=== PATIENT | female | born 1980 | race Caucasian/White ===

== ENCOUNTER → 2019-10-10 09:05 | Outpatient (CLI) | payer OTHER, SELFPAY ==
--- NOTE | ~2019-10-10 | CT_ITS ---
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 The dose -length product (DLP) was 185.35 mGy-cm. Automated exposure control and iterative reconstruction tech nique were employed. COMPARISON: None FINDINGS: There is a 1.3 x 1.2 cm left upper lobe nodule on image 50. There is no pleural effusion or pneumothorax. There are no pathologically enlarged thoracic lymph nodes. The heart size is normal. T here are changes of cholecystectomy. There is mild thoracic spondylosis. IMPRESSION: 1. 1.3 cm nodule of the left upper lobe. Comparison with prior imaging is necessary to assess for int erval change. Reviewed, dictated and finalized at location A. IMPRESSION: 1. 1.3 cm nodule of the left upper lobe. Comparison with prior imaging is neces damian to assess for interval change.
== END ==
PROVIDERS: PCP Family Medicine; Visit Provider Internal Medicine
DX: R91.1 Solitary pulmonary nodule (principal)
CPT/HCPCS: 71250

== ENCOUNTER 2019-10-11 14:09 | Outpatient (CLI) | payer OTHER, SELFPAY ==
--- NOTE | 2019-10-11 16:16 | WPDPFTINT ---
PFT Interpretation PFT Interpretation: DOS: [10/11/2019] REQUESTING: Dr. Alves REASON FOR TESTING: lung nodule PULMONARY FUNCTION TESTS Results are reproducible and reliable. Spirometry: FEV1 is 74%, 2.18 L, mildly decreased. FVC 102%, normal. FEV1% decreased. FJQ53-76% is severely decreased at 26%. No bronchodilator was given. Lung volumes: TLC 111%. RV 121% mild air trapping. Normal airway resistance. Diffusion: DLCO 96%, normal. Flow volume loop: Scooping of the expiratory limb. IMPRESSION: Mild obstructive ventilatory impairment which is severe in the small airways, mild air trapping. No bronchodilator was given. Compared to a prior study 08/02/2017, FEV1 is better, 74% now compared to 64%. Air trapping is new. Other values are stable. Loren Alva MD
== END 2019-10-11 14:10 | disposition home or self-care (01) ==
PROVIDERS: PCP Family Medicine; Visit Provider Internal Medicine
DX: R91.1 Solitary pulmonary nodule (principal); R94.2 Abnormal results of pulmonary function studies
CPT/HCPCS: 94375; 94726; 94729

== ENCOUNTER → 2020-07-15 10:20 | Outpatient (CLI) | payer OTHER, SELFPAY ==
--- NOTE | ~2020-07-15 | MM_ITS ---
EXAMINATION: MM screening rafi BI w maggie HISTORY: Screening mammogram; baseline examination TECHNIQUE: Craniocaudal and mediolateral oblique 3-D tomosynthesis images were obtained and synthetic 2-D images were generated. CAD analysis was submitted and interpreted. COMPARISON: No prior mammogram is available for comparison at this institution. BREAST PARENCHYMAL COMPOSITION: There are scattered areas of fibroglandular density. FINDINGS: There is no evidence of suspicious mass, calcification, or architectural distortion to sugg est malignancy in either breast. There has been no suspicious interval change. IMPRESSION: 1. No mammographic evidence of malignancy. 2. Recommend routine screening mammography in one year. BI-RADS Category 1: Negative Reviewed, dictated and finalized at location A.
== END ==
PROVIDERS: PCP Family Medicine; Visit Provider Family Medicine
DX: Z12.31 Encounter for screening mammogram for malignant neoplasm of breast (principal)
CPT/HCPCS: 77063; 77067

== ENCOUNTER → 2021-01-08 11:14 | Outpatient (CLI) | payer OTHER, SELFPAY ==
--- NOTE | ~2021-01-08 | XR_ITS ---
XR hip RT 2V w AP pelvis DATE: 01/08/2021 12:19 INDICATION: Right hip pain TECHNIQUE: AP pelvis. AP and lateral views of right hip COMPARISON: None FINDINGS: The pubic symphysis and sacroiliac joints are intact. No pelvic fracture or bone destructio n. Joint spaces are symmetric and well preserved. No fracture or dislocation, avascular necrosis or bone destruction of the right hip. IMPRESSION: No significant abnormality Reviewed, dictated and finalized at location A. HATCHERY MANAGER IMPRESSION: No significant abnormality
--- NOTE | ~2021-01-08 | XR_ITS ---
XR knee RT 2V DATE: 01/08/2021 12:19 INDICATION: Right knee pain TECHNIQUE: Standing AP and lateral views COMPARISON: None FINDINGS: No fracture or dislocation or joint effusion. No periosteal reaction or bone destruction. N o radiopaque intra-articular loose body or chondrocalcinosis. The joint spaces are well preserved. IMPRESSION: Negative Reviewed, dictated and finalized at location A. S HAND SEWER IMPRESSION: Negative
--- NOTE | ~2021-01-08 | XR_ITS ---
XR knee LT 2V DATE: 01/08/2021 12:19 INDICATION: Left knee pain TECHNIQUE: Standing AP and lateral views COMPARISON: None FINDINGS: No fracture or dislocation or joint effusion. No periosteal reaction or bone destruction, r adiopaque intra-articular loose body or chondral calcinosis. Joint spaces are well preserved. IMPRESSION: Negative left knee Reviewed, dictated and finalized at location A. ATING ROOM RN IMPRESSION: Negative left knee
== END ==
PROVIDERS: PCP Family Medicine; Visit Provider Family Medicine
DX: M25.551 Pain in right hip (principal); M25.552 Pain in left hip; M25.559 Pain in unspecified hip
CPT/HCPCS: 73502; 73560

== ENCOUNTER → 2021-04-01 10:02 | Outpatient (CLI) | payer OTHER, SELFPAY ==
--- NOTE | ~2021-04-01 | XR_ITS ---
EXAMINATION: XR chest 2V DATE: 04/01/2021 10:34 INDICATION: Shortness of breath TECHNIQUE: PA and lateral views of the chest were obtained. COMPARISON: Chest radiograph dated 11/19/[address] dated 10/10/2019 FINDINGS: Impression 1.2 cm nodular opacity in the upper lingula and the left midlung zone which was present wi th similar size on the CT from 18 months prior favoring a benign etiology. No other airspace opacitie s, pulmonary edema, pleural effusion or pneumothorax. The cardiomediastinal silhouette is normal. Vis ualized bones and soft tissues are unremarkable. IMPRESSION: 1. No acute cardiopulmonary disease. 2. No significant private branch exchange service adviser 18 months accounting for differences in technique in a 1.2 cm nodule at the lingula which favors a benign etiology. Consider follow-up low-dose noncontrast chest CT for mor e definitive quantitative comparison to document stability. Reviewed, dictated and finalized at location A. L HOUSEKEEPER Impression 1.2 cm nodular opacity in the upper lingula and the left midlung zon e which was present with similar size on the CT from 18 months prior favoring a benign etiology. No other airspace opacities, pulmonary edema, pleural effusio n or pneumothorax. The cardiomediastinal silhouette is normal. Visualized bones and soft tissues are unremarkable. IMPRESSION: 1. No acute cardiopulmonary disease. 2. No significant private branch exchange service adviser 18 months accounting for differences in technique in a 1.2 cm nodule at the lingula which favors a benign etiology. Consider fol low-up low-dose noncontrast chest CT for more definitive quantitative compariso n to document stability.
== END ==
PROVIDERS: PCP Family Medicine; Visit Provider Family Medicine
DX: R06.02 Shortness of breath (principal); R91.1 Solitary pulmonary nodule
CPT/HCPCS: 71046

== ENCOUNTER 2022-02-10 09:52 | Outpatient (CLI) | payer OTHER, SELFPAY ==
[2022-02-10 10:42] LABS: Influenza A QL RT-PCR Negative (Negative); Influenza B QL RT-PCR Negative (Negative); SARS-CoV-2 RNA PCR Negative
== END 2022-02-10 09:53 | disposition home or self-care (01) ==
LOC: ANHLAB 09:54
PROVIDERS: PCP Family Medicine; Visit Provider Physician Assistant
DX: R05.9 Cough, unspecified (principal); Z20.822 Contact with and (suspected) exposure to COVID-19
CPT/HCPCS: 87636

== ENCOUNTER 2022-07-03 09:52 | Outpatient (CLI) | payer OTHER, SELFPAY ==
--- NOTE | ~2022-07-03 | XR_ITS ---
Supine and upright views of the abdomen Clinical history: Epigastric pain Findings: Bowel gas pattern is nonspecific. No evidence for obstruction or free air. No abnormal mass lesion or calcification is seen. 2 metallic structures, the right mid abdomen and 1 the left lower q uadrant, presumably external to the patient. Osseous structures are intact. Impression: Presumed external metallic structures, as noted above. Correlate clinically. No other significant findings. Reviewed, dictated and finalized at location . Impression: Presumed external metallic structures, as noted above. Correlate clinically. No other significant findings.
== END 2022-07-03 09:53 | disposition home or self-care (01) ==
LOC: ANHIMG 09:55
PROVIDERS: PCP Family Medicine; Visit Provider Physician Assistant
DX: R10.13 Epigastric pain (principal)
CPT/HCPCS: 74018

== ENCOUNTER → 2023-02-11 10:21 | Outpatient (CLI) | payer OTHER, SELFPAY ==
--- NOTE | ~2023-02-11 | MM_ITS ---
EXAMINATION: MM screening rafi BI w maggie HISTORY: Screening mammogram TECHNIQUE: Craniocaudal and mediolateral oblique 3-D tomosynthesis images were obtained and synthetic 2-D images were generated. CAD analysis was submitted and interpreted. COMPARISON: 07/11/2020 bilateral screening mammogram BREAST PARENCHYMAL COMPOSITION: There are scattered areas of fibroglandular density. FINDINGS: There is a new 8 mm low density circumscribed density in the upper mid right breast slightl y lateral to mid sagittal plane, lateral most likely benign; diagnostic right mammogram and right edward ast ultrasound examination are recommended. No suspicious mass, architectural distortion, microcalcifications, skin thickening or retraction of e ither breast is noted otherwise. No other significant new or developing density of either breast is d etected. IMPRESSION: 1. New circumscribed 8 mm mass, anterior upper outer quadrant 2. Diagnostic right mammogram and right breast ultrasound examination are recommended BI-RADS Category 0: Incomplete: Needs additional imaging evaluation. Reviewed, dictated and finalized at location A. AL SHELTER WORKER IMPRESSION: 1. New circumscribed 8 mm mass, anterior upper outer quadrant 2. Diagnostic right mammogram and right breast ultrasound examination are recom mended BI-RADS Category 0: Incomplete: Needs additional imaging evaluation.
== END ==
PROVIDERS: PCP Family Medicine; Visit Provider Family Medicine
DX: Z12.31 Encounter for screening mammogram for malignant neoplasm of breast (principal); N63.11 Unspecified lump in the right breast, upper outer quadrant; R92.8 Other abnormal and inconclusive findings on diagnostic imaging of breast
CPT/HCPCS: 77063; 77067

== ENCOUNTER → 2023-03-17 09:16 | Outpatient (CLI) | payer OTHER, SELFPAY ==
--- NOTE | ~2023-03-17 | MMUS_ITS ---
EXAMINATION: MM diagnostic rafi RT w maggie, US breast RT limited HISTORY: Right breast mass on screening mammogram TECHNIQUE: Additional 3-D tomosynthesis images of the right breast were performed and synthetic 2-D i mages were generated. CAD analysis was submitted and interpreted. High resolution limited right breas t ultrasound was performed. COMPARISON: 02/11/2023, 07/15/2020 BREAST PARENCHYMAL COMPOSITION: There are scattered areas of fibroglandular density. FINDINGS: MAMMOGRAPHIC FINDINGS: There is a 9 mm x 6 mm oval, obscured, low density mass in the anterior/middle third of the breast at the 12:00 location, 4 cm from the nipple. No suspicious calcification or architectural distortion ar e identified. ULTRASOUND: There is a 10 mm x 5 mm cyst at the 12:00 location, 2 cm from the nipple corresponding to the mammogr aphic finding in question. IMPRESSION: 1. No mammographic or sonographic evidence of malignancy. 2. Recommend routine screening mammography in one year. BI-RADS Category 2: Benign finding(s). Reviewed, dictated and finalized at location A. N BLIND LOOM TENDER IMPRESSION: 1. No mammographic or sonographic evidence of malignancy. 2. Recommend routine screening mammography in one year. BI-RADS Category 2: Benign finding(s).
== END ==
PROVIDERS: PCP Physician Assistant Medical; Visit Provider Physician Assistant Medical
DX: R92.8 Other abnormal and inconclusive findings on diagnostic imaging of breast (principal)
CPT/HCPCS: 76642; 77061; 77065; G0279

== ENCOUNTER 2024-04-07 14:50 | Outpatient (CLI) | payer OTHER, SELFPAY ==
--- NOTE | ~2024-04-07 | XR_ITS ---
XR hip RT min 2V 04/07/2024 15:06 Indication: Right hip pain Procedure: 2 views right hip Comparison: 01/08/2021 Findings: No fracture, subluxation or dislocation. There is anatomic alignment. No soft tissue abnorm ality. No foreign bodies. Impression: 1: No significant bone or joint abnormality. Reviewed, dictated and finalized at location B. TURNER MACHINE OPERATOR Impression: 1: No significant bone or joint abnormality.
== END 2024-04-07 14:51 | disposition home or self-care (01) ==
LOC: MICIMG 14:52
PROVIDERS: PCP Family Medicine; Visit Provider Family Medicine
DX: M25.551 Pain in right hip (principal)
CPT/HCPCS: 73502

== ENCOUNTER 2024-04-11 10:54 | Emergency (ER) | payer OTHER, SELFPAY ==
--- NOTE | ~2024-04-11 | CT_ITS ---
EXAMINATION: CT abdomen pelvis w con DATE: 04/11/2024 13:52 INDICATION: Abdominal pain. TECHNIQUE: Computed tomography (CT) of the abdomen and pelvis was performed with 100 mL Omnipaque 350 intravenous contrast. Automated exposure control and iterative reconstruction technique were employe d. The dose-length product was 368.47 mGy-cm. COMPARISON: CT abdomen and pelvis 07/25/2018 FINDINGS: The visualized portions of the lung bases are clear without pneumonia or pleural effusion. The heart size is normal. No pericardial effusion. The liver is normal. There are changes of cholecys tectomy. There is a chronic 19 mm hypodense mass in the spleen, likely benign. The pancreas, adrenal glands, and kidneys are normal. There is a 9.3 cm fibroid in the uterus. There are no dilated loops o f bowel. The appendix is normal. There are no pathologically enlarged lymph nodes. There is no free i ntraperitoneal fluid. There is mild thoracic and lumbar spondylosis. IMPRESSION: 1. Large uterine fibroid with worsening from 07/25/2018. Reviewed, dictated and finalized at location A. COORDINATOR
[2024-04-11 11:00] VITALS: BP 129/80; PULSE 85; RESP 20; TEMP 36.4; O2SAT 100
--- OUTSIDE RECORDS SUMMARY | 2024-04-11 11:05 | XMS_ITS ---
Author Organization [facility] Address [address] [place] [address] Care Team Providers Care Collar Tailor Name Role Phone Maldonado Robles MD Primary Care Provider Princess Beck Unavailable [phone] REASON FOR VISIT [employer] - approved with new insurance Encounters Encounter Location Date Provider Diagnosis [address] [address] 03/16/2024 Princess Crawford Plan Of Treatment Next Appt Details Provider Name:Cruz Abel , 04/13/2024 08:20:00 AM, 2022 [facility], [address], [address], Provider Name:Cruz Abel , 04/20/2024 08:00:00 AM, 2022 [facility], [address], [address], Provider Name:Princess Crawford , 06/01/2024 10:30:00 AM, 2022 [facility], [address], [place], [address], Progress Notes * Jairo EDMONDSOB:[birth year] (44 yo F)Acc No.[id number]:03/16/2024 Patient: Giovani Manuela LAZCANO :1980 A ge:44 Y S ex:Female Address:[address] [place] [address], [address] * true * Date: Generated for Valerio julio/Karel/Samraitting on: 0 04/11/2024 11:04 AM DOCTOR OF NURSING PRACTICE
--- OUTSIDE RECORDS SUMMARY | 2024-04-11 11:05 | XMS_ITS | Referral Summary ---
Author Organization [facility] Address [address] [place] [address] Care Team Providers Care Gis Software Engineer Name Role Phone Maldonado Robles MD Primary Care Provider Allergies Active Allergy Reactions Criticality Noted Date Comments Dexamethasone Edema Medium 09/05/2019 Severe Edema that stretched skin. Medications montelukast (SINGULAIR) 10 mg tablet Take 1 tablet (10 mg total) by mouth daily 07/25/19 20 Active albuterol HFA (PROVENTIL HFA,VENTOLIN HFA,PROAIR HFA) 90 mcg/actuation inhaler Inhale 2 puffs every 4 (four) hours as needed Active theophylline (UNIPHYL) 600 mg 24 hr tablet Take 1 tablet (600 mg total) by mouth daily 08/16/19 20 Active metFORMIN XR (GLUCOPHAGE XR) 500 mg 24 hr tablet TAKE 2 TABLETS BY MOUTH ONCE EVERY EVENING 07/13/19 20 Active busPIRone (BUSPAR) 10 mg tablet Take 1 tablet (10 mg total) by mouth 08/22/19 20 Active levothyroxine (SYNTHROID) 125 mcg tablet Active Xolair 150 mg injection 08/30/19 20 Active azelastine (ASTELIN) 137 mcg (0.1 %) nasal spray 08/29/19 20 Active Fetzima 80 mg capsule,extended release 24 hr Take 1 capsule (80 mg total) by mouth every morning 06/23/19 20 Active ipratropium-albu teroL (DUO-NEB) 0.5-2.5 mg/3 mL nebulizer solution Take 3 mL by nebulization every 6 (six) hours as needed Active famotidine (PEPCID) 40 mg tablet TAKE 1 TABLET BY MOUTH PRIOR TO ALLERGY SHOTS 08/03/19 20 Active calcium carbonate-vitami n D3 600 mg(1,500mg) -400 unit capsule Take 1 tablet by mouth 3 (three) times a day 07/14/19 20 Active cetirizine (ZyrTEC) 10 mg tablet Take 1 tablet (10 mg total) by mouth daily Active EPINEPHrine 0.3 mg/0.3 mL auto-injection syringeIndicatio ns:Anaphylaxis Inject 0.3 mL (0.3 mg total) into the muscle as instructed Active Trulicity 0.75 mg/0.5 mL pen injector 05/17/19 21 Active dextroamphetamin e-amphetamine XR (ADDERALL XR) 5 mg 24 hr capsule 05/14/19 21 Active OneTouch Ultra Test strip TEST FASTING BLOOD SUGAR EVERY MORNING. 10/21/19 21 Active dexmethylphenida te XR (FOCALIN XR) 10 mg 24 hr capsule Take 1 capsule (10 mg total) by mouth every morning 10/31/19 21 Active Trelegy Ellipta 200-62.5-25 mcg inhaler INHALE 1 PUFF ONCE DAILY 11/11/19 21 Active levothyroxine (SYNTHROID) 112 mcg tablet Take 1 tablet (112 mcg total) by mouth daily 04/06/19 22 Active traZODone (DESYREL) 50 mg tablet Take 1 tablet (50 mg total) by mouth nightly 06/03/19 22 Active Januvia 100 mg tablet Take 1 tablet (100 mg total) by mouth daily 06/01/19 22 Active lisinopriL (PRINIVIL,ZESTRI L) 10 mg tablet Take 1 tablet (10 mg total) by mouth daily 04/06/19 22 Active COVID-19 test specimen collect [facility] [place] 03/19/19 22 Active Rybelsus 7 mg tablet Take 1 tablet (7 mg total) by mouth daily 11/27/19 22 Active predniSONE (DELTASONE) 10 mg tabletIndication s:Moderate persistent asthma with acute exacerbation Take 4 tabs (40mg) daily for 4 days, then 3 tabs (30mg) daily for 3 days, 2 tabs (20mg) daily for 2 days, 1 tab (10 mg) daily for 2 days. 31 tablet 10/31/20 22 Active cyanocobalamin (Vitamin B-12) 1,000 mcg tablet daily Act sugar mometasone (Asmanex Twisthaler) 220 mcg/ actuation (120) aerosol powdr breath activated 1 puff(s) 05/02/19 22 Active Paxlovid, EUA, tablets,dose pack tablets in a dose pack (EUA) TAKE 2 TABLETS (NIRMATRELVIR) AND TAKE 1 TABLET (RITONAVIR) BY MOUTH TWICE A DAY FOR 5 DAYS 05/15/19 23 Active lisinopriL (PRINIVIL,ZESTRI L) 30 mg tablet Take 1 tablet (30 mg total) by mouth daily 06/04/19 23 Active Xolair 150 mg/mL syringe 06/12/19 23 Active Xolair 75 mg/0.5 mL syringe 06/12/19 23 Active Rybelsus 14 mg tablet 06/24/19 23 Active buPROPion SR (WELLBUTRIN SR) 200 mg 12 hr tablet every 12 hours Activ e immune globulin,gamma,I gG,klhw (Xembify) 1 gram/5 mL (20 %) solution 12 g subcutaneously weekly Active Farxiga 10 mg tablet daily Active triamcinolone (KENALOG) 0.1 % cream 1 herbert applied topically 3 times a day as needed for 14 days Active Active Problems No known active problems Immunizations Immunization Administration Dates Next Due Influenza, Quadrivalent, Spl it, Preservative Free, Intramuscular 12/28/2022 Social History Tobacco Use Types Packs/Day Years Used Date Smoking Tobacco: Former Cigarettes 1 19 0 11/06/1991 - 11/05/2010 Smokeless Tobacco: Never Tobacco Cessation:Counseling Given: Not Answered Alcohol Use Standard Drinks/Week Comments Not Currently 0 (1 standard drink = 0.6 oz pur e alcohol) Personal Safety Answer Date Recorded Getting School Help Needed Not on file 04/20 Comments Unknown Sex and Gender Information Value Date Recorded Sex Assigned at Not on file Legal Sex Female 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 Gender Identity Not on file Sexual Orientation Not on file Last Filed Vital Signs Vital Sign Reading Time Taken Comments Blood Pressure 97/70 09/27/2023 10:58 AM CDT Pulse 87 09/27/2023 10:58 AM CDT Temperature 36.2 C (97.2 F) 09/27/2023 10:58 AM CDT Respiratory Rate 18 09/27/2023 10:58 AM CDT Oxygen Saturation 100% 09/27/2023 10:58 AM CDT Inhaled Oxygen Concentration - - Weight 73.6 kg (162 lb 3.2 oz) 09/27/2023 10:58 AM CDT Height 167.6 cm (5' 6 ) 09/27/2023 10:58 AM CDT Body Mass Index 26.18 09/27/2023 10:58 AM CDT Plan of Treatment Not on file Insurance CIGNA CIGNA Care Teams Gis Software Engineer Relationship Specialty Start Date End Date Maldonado Robles MD [address] [facility] [address] [place] [address] PCP - General Family Medicine 08/16/19
--- OUTSIDE RECORDS SUMMARY | 2024-04-11 11:05 | XMS_ITS | Referral Summary ---
Author Organization [facility] Address [address] [place] [address] Care Team Providers Care Facilities Operations Technician Name Role Phone Maldonado Robles MD Primary Care Provider [phone] [facility],non-owned Affiliates and Associated Physician Practices is amultiple site organization consisting of ambulatory clinics and hospital sitesin [place], [place] and [place]. This disclosure is being madepursuant to the Care Everywhere program and may not contain all information available regarding this patient. Last updated 17.[facility] [employer] Active Problems Problem Noted Date Diagnosed Date Obesity complicating 12/06/2014 Diabetes mellitus in 12/06/2014 Uncomplicated asthma 12/06/2014 Tobacco smoking complicating 5 Hypothyroidism 12/06/2014 Social History Tobacco Use Types Packs/Day Years Used Date Smoking Tobacco: Never Assessed Cigarettes Alcohol Use Standard Drinks/Week Comments No 0 (1 standard drink = 0.6 oz pur e alcohol) Sex and Gender Information Value Date Recorded Sex Assigned at Not on file Gender Identity Not on file Sexual Orientation Not on file Plan of Treatment Not on file Care Teams Facilities Operations Technician Relationship Specialty Start Date End Date Maldonado Robles MD [address] [place] [address] PCP - General 11/24/11
--- OUTSIDE RECORDS SUMMARY | 2024-04-11 11:05 | XMS_ITS | Clinical Summary ---
Author Organization [facility] Address [address] [place] [address] Care Team Providers Care Classifications Officer Cc/Cm Name Role Phone Maldonado Robles MD Primary Care Provider [phone] Source Comments [facility],non-owned Affiliates and Associated Physician Practices is amultiple site organization consisting of ambulatory clinics and hospital sitesin [place], [place], [place] and [place]. This disclosure is being madepursuant to the Care Everywhere program and may not contain all information available regarding this patient. Last updated 17.[facility] Active Problems Problem Noted Date Diagnosed Date Obesity complicating 12/06/2014 Diabetes mellitus in 12/06/2014 Uncomplicated asthma 12/06/2014 Tobacco smoking complicating 5 Hypothyroidism 12/06/2014 Family History Medical History Relation Name Comments CAD (Coronary Artery Disease) Father Diabetes Father Emphysema Father Emphysema Maternal Grandfather d Cancer Maternal Grandmother d Thyroid Disease Mother Relation Name Status Comments Father Maternal Grandfather Maternal Grandmother Mother Social History Tobacco Use Types Packs/Day Years Used Date Smoking Tobacco: Never Assessed Cigarettes Alcohol Use Standard Drinks/Week Comments No 0 (1 standard drink = 0.6 oz pur e alcohol) Sex and Gender Information Value Date Recorded Sex Assigned at Not on file Gender Identity Not on file Sexual Orientation Not on file Plan of Treatment Health Maintenance Due Date Last Done Comments COLOGUARD (AGES 45-75) - COL ON CA SCREENING 1979 COLON MONITORING 1979 COLONOSCOPY - COLON CA SCREENING 1979 CT COLONOGRAPHY - COLON CA SCREENING 1979 Colorectal Cancer Screening 1979 FIT - COLON CA SCREENING 1979 FLEX SIG - COLON CA SCREENING 1979 LIPID TESTING 1979 MAMMOGRAM 1979 PAP SMEAR 1979 HIV SCREENING 1994 HEPATITIS C SCREENING 02/28/1997 DTAP/TDAP/TD VACCINES (1 - Tdap) 1998 HEPATITIS B VACCINE (1 of 3 - 19+ 3-dose series) 1998 PNEUMOCOCCAL VACCINE (1 of 2 - PCV) 1998 COVID-19 VACCINE (1 - 2023-2 5 season) 2023 INFLUENZA VACCINE (#1) 2023 DEPRESSION SCREENING 02/23/2024 ZOSTER VACCINE (1 of 2) 2029 HIB VACCINE Aged Out No longer eligi ble based on patient's age to complete this topic HPV VACCINE Aged Out No longer eligi ble based on patient's age to complete this topic MENINGOCOCCAL (Group B) VACCINE Aged Out No longer eligible based on patient's age to complete this topic MENINGOCOCCAL VACCINE Aged Out No kira jenise eligible based on patient's age to complete this topic Care Teams Classifications Officer Cc/Cm Relationship Specialty Start Date End Date Maldonado Robles MD [address] [place] [address] PCP - General 11/24/11
--- OUTSIDE RECORDS SUMMARY | 2024-04-11 11:05 | XMS_ITS | Clinical Summary ---
Author Organization [facility] Address [address] [place] [address] Care Team Providers Care International Marketing Manager Name Role Phone Maldonado Robles MD Primary [...] 04/06/19 22 Active COVID-19 test specimen [facility] [place] 03/19/19 22 Active Rybelsus 7 mg tablet [...] Quadrivalent, Spl it, Preservative Free, Intramuscular 12/28/2022 Surgical History Surgery Date Site/Laterality Comments CHOLECYSTECTOMY TUBAL LIGATION LUNG BIOPSY Medical History Medical History Date Comments Asthma Diabetes mellitus (HCC) Family History Medical History Relation Name Comments Diabetes Father Stroke Father Cancer Mother Relation Name Status Comments Father Mother Alive Social History Tobacco Use Types Packs/Day Years [...] on file Legal Sex Female 8:59 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 Gender Identity Not on file Sexual Orientation Not on file Obstetrics History Last Filed Vital Signs Vital Sign Reading [...] 09/27/2023 10:58 AM CDT Plan of Treatment Health Maintenance Due Date Last Done Comments Breast Cancer Screening-Mammogram 1979 Cervical Cancer Screening 1979 Colon Cancer Screening-Colonoscopy 1979 Depression Screening 1979 Hepatitis C Screening 1979 DTaP/Tdap/Td Vaccine (1 - Tdap) 1990 Varicella Vaccines (1 of 2 - 13+ 2-dose series) 1992 Hepatitis B Screening 1997 Regular Well Visit/Exam 18-64 1997 Zoster Vaccine (1 of 2) 1998 Pneumococcal vaccine <65 (2 of 2 - PCV) 02/10/2020 02/09/2019 Influenza Vaccine (#1) 2023 3, 01/13/2019, 03/06/2018, Additional history exists HPV Vaccines Aged Out No longer eligi ble based on patient's age to complete this topic Insurance CIGNA CIG Care Teams International Marketing Manager Relationship Specialty Start Date End Date Maldonado Robles MD [address] [facility] [address] [place] [address] PCP - General Family Medicine 08/16/19
--- OUTSIDE RECORDS SUMMARY | 2024-04-11 11:05 | XMS_ITS ---
Author Organization [facility] Address [address] [place] [address] Care Team Providers Care Manager Ccu Name Role Phone Maldonado Robles MD Primary Care Provider UnavailPrincess Tee Unavailable [phone] REASON FOR VISIT Anesthesiology Technologist not in network Encounters Encounter Location Date Provider Diagnosis [facility] [address] [place] [address] 03/27/2024 Princess Crawford Plan Of Treatment Next Appt Details Provider Name:Cruz Abel , 04/13/2024 08:20:00 AM, [address] [facility], [address], [address], Provider Name:Cruz Abel , 04/20/2024 08:00:00 AM, [address] [facility], [address], [address], Provider Name:Princess Crawford , 06/01/2024 10:30:00 AM, [address] [facility], [address] [place] [address], [address], Progress Notes * Jiaro EDMONDSOB:[birth year] (44 yo F)Acc No.[id number]:03/27/2024 Patient: Giovani Manuela LAZCANO :1980 A ge:44 Y S ex:Female Address:[address], [place], [address] * true * Date: Generated for Valerio julio/Karel/Samraitting on: 0 04/11/2024 11:05 AM APARTMENT LEASING 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
--- OUTSIDE RECORDS SUMMARY | 2024-04-11 11:05 | XMS_ITS ---
Author Organization [facility] [place] Address [address] [place] [address] Care Team Providers Care Aligner Typewriter Name Role Phone Maldonado Robles MD Primary Care Provider Daina Michaud Unavailable [phone] Martha Garcia Unavailable [phone] REASON FOR VISIT Fatigue, Difficulties with executive function Medications Medication SIG (Take, Route, Frequency, Duration) Notes Start Date End Date Status Benzonatate 100 MG Oral 07/07/2023 Not-Taking Nitrofurantoin Monohyd Macro 100 MG Oral 07/07/2023 Not-Blake ing Januvia 100 MG Oral 07/07/2023 Not- Taking Symbicort 160-4.5 MCG/ACT Inhalation 07/07/2023 Not-Taking busPIRone HCl 15 MG TAKE 1 TABLET BY MOUTH THREE TIMES A DAY WITH MEALS FOR ANXIETY for 90 Active Azelastine HCl 137 MCG/SPRAY Nasal 07/07/2023 Active OneTouch Ultra In Vitro 07/07/2023 Acti ve Xolair 150 MG Subcutaneous 07/07/2023 Ac tive OneTouch Ultra Blue In Vitro 07/07/2023 Active Farxiga 10 MG Oral 07/07/2023 Activ e Montelukast Sodium 10 MG Oral 07/07/2023 Active Lisinopril 30 MG Oral 07/07/2023 Ac tive Trelegy Ellipta 200-62.5-25 MCG/ACT Inhalation *Pick strength-form from [facility] for eRX* 07/07/2023 Active ProAir HFA 108 (90 Base) MCG/ACT Inhalation 07/07/2023 Active metFORMIN HCl ER 500 MG Oral 07/07/2023 Active Ipratropium-Albutero l 0.5-2.5 (3) MG/3ML Inhalation 07/07/2023 Active Famotidine 40 MG Oral 07/07/2023 Ac tive Theophylline 600 mg Oral *Pick strength[facility]form from [facility] for eRX* 07/07/2023 Active CALCIUM CARBONATE 600 MG-VITAMIN D3 12.5 MCG (500 UNIT) CAPSULE *Reorder from [facility] for eRx and Interaction Alerts* 07/07/2023 Active Auvi-Q 0.3 MG/0.3ML Injection 07/07/2023 Active buPROPion HCl ER (XL) 150 MG 1 tablet in the morning Oral Once a day for 90 days Active traZODone HCl 50 MG 1 tablet at bedtime Oral at bedtime for 90 days Active ONE TOUCH LANCETS MISCELLANEOUS *[facility] for eRx and Interaction Alerts* 07/07/2023 Active Sertraline HCl 50 MG 1 tablet Oral Once a day for 90 days Active Levothyroxine Sodium 112 MCG Oral 07/07/2023 Active Fetzima 40 MG 1 capsule Oral Once a day for 90 days Active Social History Tobacco Use: Social History Observation Description Date Details (start date - stop date) Former Smoker 01/22/1993 - 10/23/2010 Sex Assigned At : Social History Observation Description Sex Assigned At Female Tobacco Control (Standard) Question Answer Notes When did you start smoking? 01/22/1993 When did you stop smoking? 10/23/2010 How long has it been since you last smoked? Mahin ter than 10 years Tobacco use: Former smoker Encounters Encounter Location Date Provider Diagnosis [facility] [place] [address] [address] 02/14/2024 Martha Garcia Attention-deficit hyperactivity disorder, predominantly inattentive type F90.0 ; Generalized anxiety disorder F41.1 and Major depressive disorder, recurrent, mild F33.0 Assessments Encounter Date Diagnosis (ICD Code) Assessment Notes Treatment Notes Treatment Clinical Notes Section Notes 02/14/2024 Attention-deficit hyperactivity disorder, predominantly inattentive type (ICD-10 - F90.0) 02/14/2024 Generalized anxiety disorder (ICD-10 - F41.1) 02/14/2024 Major depressive disorder, recurrent, mild (ICD-10 - F33.0) Plan Of Treatment Next Appt Details Provider Name:Martha Garcia, 04/18/2024 08:00:00 AM, [address], [place] [address], [place], [address], Provider Name:Daina Ward , 05/02/2024 08:15:00 AM, [address], [facility] [address], [place], [address], Progress Notes * BEN EDMONDSOB:[birth year] (43 yo F)Acc No.[id number]:02/14/2024 Patient: Giovani LEEANN LAZCAON Provider: Lacey GARCIA LCSW :1980 A ge:43 Y S ex:Female Date:02/14/2024 Address:[address] [place], [place] [id number] Pcp:Maldonado Robles MD Data: * Time Tracker: * Date Start Time End Time Duration User Type Captured By Mode Notes 02/14/2024 10:10 AM 11:06 AM 00:56:24 Therapist Martha Garcia * Chief Complaints: * 1 . Fatigue. 2. Difficulties with executive function. * HPI: D epression Screening: MARCOS-7 (2018 Edition) F eeling nervous, anxious, or on edge?More than half the days, N ot being able to stop or control worrying S everal days,?Worrying too much about different things S everal days, T rouble relaxing M ore than half the days, B eing so restless that it is hard to sit still M ore than half the days, B ecoming easily annoyed or irritable M ore than half the days, F eeling afraid as if something awful might happen N ot at all. [place]-Suicide Severity Rating Scale: Suicide Risk (CSRS-screener) i n the past one month Have you wished you were or wished you could go to sleep and not wake up? N o, i n the past one month Have you actually had any thoughts of killing yourself? N o, H ave you ever done anything, started to do anything, or prepared to do anything to end your life? N o. D epression screening: PHQ-9 L ittle interest or pleasure in doing things S everal days, F eeling down, depressed, or hopeless N ot at all, T rouble falling or staying asleep, or sleeping too much S everal days, F eeling tired or having little energy S everal , P oor appetite or overeating N early every day, F eeling bad about yourself or that you are a failure, or have let yourself or your family down N ot at all, T rouble concentrating on things, such as reading the newspaper or watching television S ever, M oving or speaking so slowly that other people could have noticed; or the opposite, being so fidgety or restless that you have been moving around a lot more than usual S ever, T houghts that you would be better off or of hurting yourself in some way N ot at all. P sychotherapy Information: Date: 02/14/2024 Current symptoms: Severe fatigue Severity: Severe Context: Cl. had labwork- identified thyroid issue- wrong medication called in by the doctor's office- called in [facility] instead of synthroid. Cl. has lost a lot of weight. H oping to be able to have the medication issue fixed before the holiday. Intervention: During this session, clinician prompted Cl. to process thoughts and feelings associated with medical stressors f or the purpose of gaining insight. Clinician provided support and validation where appropriate. Response: Cl. participated actively in discussion and displayed good insight. Cl. appears to be making good progress. Plan:. * Family History: M aternal Aunt: Depressive disorder , Family history of cancer . F ather: Diabetes mellitus , Substance abuse . M aternal Uncle: Family history of cancer . U nspecified Relation: Substance abuse, Notes: cousin . M other: Depressive disorder , Substance abuse , Anxiety disorder , Family history of cancer , Hypothyroidism . M aternal Grandmother: Family history of cancer .? * Social History: T obacco Use: T obacco Control (Standard) W hen did you start smoking? 1 03/25/1992, W hen did you stop smoking? 0 10/23/2010, H ow long has it been since you last smoked? G reater than 10 years, T obacco use: F ormer smoker. M igrated Social History: M igrated Social History: Alcohol Intake: None 06/23/2022,Tobacco Years: Former smoker 12/26/2019,Smoking Status: 10 04/05/2023. D rug/Alcohol: D o you smoke marijuana?: Denies. Do you drink alcohol?: No. * Medications: T aking Fetzima 40 MG Capsule Extended Release 24 Hour 1 capsule Oral Once a day , Taking buPROPion HCl ER (XL) 150 MG Tablet Extended Release 24 Hour 1 tablet in the morning Oral Once a day , Taking traZODone HCl 50 MG Tablet 1 tablet at bedtime Oral at bedtime , Taking Sertraline HCl 50 MG Tablet 1 tablet Oral Once a day , Taking Levothyroxine Sodium 112 MCG Tablet Oral , Taking ONE TOUCH LANCETS EACH MISCELLANEOUS , Notes to Pharmacist: *Reorder from [facility] for eRx and Interaction Alerts*, Taking Auvi-Q 0.3 MG/0.3ML Solution Auto-injector Injection , Taking Theophylline 600 mg Tablet Extended Release 24 Hour Oral , Notes to Pharmacist: *Pick strength-form from [facility] for eRX*, Taking CALCIUM CARBONATE 600 MG-VITAMIN D3 12.5 MCG (500 UNIT) CAPSULE , Notes to Pharmacist: *Reorder from [facility] for eRx and Interaction Alerts*, Taking Famotidine 40 MG Tablet Oral , Taking Ipratropium-Albuterol 0.5-2.5 (3) MG/3ML Solution Inhalation , Taking Trelegy Ellipta 200-62.5-25 MCG/ACT Aerosol Powder Breath Activated Inhalation , Notes to Pharmacist: *Pick strength-form from [facility] for eRX*, Taking Montelukast Sodium 10 MG Tablet Oral , Taking Lisinopril 30 MG Tablet Oral , Taking ProAir HFA 108 (90 Base) MCG/ACT Aerosol Solution Inhalation , Taking metFORMIN HCl ER 500 MG Tablet Extended Release 24 Hour Oral , Taking OneTouch Ultra Blue Strip In Vitro , Taking Farxiga 10 MG Tablet Oral , Taking OneTouch Ultra Strip In Vitro , Taking Xolair 150 MG Solution Reconstituted Subcutaneous , Taking Azelastine HCl 137 MCG/SPRAY Solution Nasal , Taking busPIRone HCl 15 MG Tablet TAKE 1 TABLET BY MOUTH THREE TIMES A DAY WITH MEALS FOR ANXIETY , Not-Taking Januvia 100 MG Tablet Oral , Not-Taking Symbicort 160- 4.5 MCG/ACT Aerosol Inhalation , Not-Taking Benzonatate 100 MG Capsule Oral , Not- Taking Nitrofurantoin Monohyd Macro 100 MG Capsule Oral , Medication List reviewed and reconciled with the patient * Examination: P sychiatry: Appearance: w ell-groomed. Affect / mood: a ppropriate. Attention: n ormal in conversation. Attitude: c ooperative. Homicidal ideation: n one. Suicidal ideation: n one. Insight: g ood. Intellectual functioning: a carlee average. Judgement: g ood. Orientation: a wake, alert and oriented x 3. Speech / language: a ppropriate pitch/modulation, clear and coherent, normal rate, volume, and articulation (RVR), proper grammar used. Thought content: a ppropriate. Thought process: i ntact. Assessment: * Assessment: 1. A ttention-deficit hyperactivity disorder, predominantly inattentive type - F90.0 (Primary)? 2. G eneralized anxiety disorder - F41.1 3 . M ajor depressive disorder, recurrent, mild - F33.0 Plan: * Treatment: * Procedure Codes: 9 0837 PSYCHOTHERAPY W/PATIENT 60 MINUTES * Billing Information: * Visit Code: * Procedure Codes: 28616 PSYCHOTHERAPY W/PATIENT 60 MINUTES. * NDER JOB RETENTION SPECIALIST Sign off status: Completed Signatures: No Ad Hoc Signature Added true * Provider: Lacey GARCIA LCSW Date: 04/16/2023 Generated for Valerio julio/Karel/Beatrice on: 0 04/11/2024 11:05 AM OFFENDER JOB RETENTION SPECIALIST History and Physical Notes * HPI (History of Present Illness) Category Sub-Category Detail Notes Category Not es Depression screening PHQ-9 Little inte rest or pleasure in doing things: Several days Feeling down, depressed, or hopeless: No t at all Trouble falling or staying asleep, or sl eeping too much: Several days Feeling tired or having little energy: S everal days Poor appetite or overeating: Nearly ever y day Feeling bad about yourself o r that you are a failure, or have let yourself or your family down: Not at all Trouble concentrating on thi ngs, such as reading the newspaper or watching television: Several days Moving or speaking so slowly that other people could have noticed; or the opposite, being so fidgety or restless that you have been moving around a lot more than usual: Several days Thoughts that you would be b katelyn off or of hurting yourself in some way: Not at all Depression Screening MARCOS-7 (2018 Edition) Feelin g nervous, anxious, or on edge: More than half the days Not being able to stop or control worryi ng: Several days Worrying too much about different things : Several days Trouble relaxing: More than half the day s Being so restless that it is hard to sit still: More than half the days Becoming easily annoyed or irritable: Mo re than half the days Feeling afraid as if something awful harry ht happen: Not at all Psychotherapy Information Date: 02/14/2024 Current symptoms: Severe fatigue Severity: Severe Context: Cl. had labwork- identified thyroid issue- wrong medication called in by the doctor's office- called in Farxiga instead of synthroid. Cl. has lost a lot of weight. Hoping to be able to have the medication issue fixed before the holiday. Intervention: During this session, clinician prompted Cl. to process thoughts and feelings associated with medical stressors for the purpose of gaining insight. Clinician provided support and validation where appropriate. Response: Cl. participated actively in discussion and displayed good insight. Cl. appears to be making good progress. Plan: [place]-Suicide Severity Rating Scale Suicide Risk (CSRS-screener) in the past one month Have you wished you were or wished you could go to sleep and not wake up?: No in the past one month Have y ou actually had any thoughts of killing yourself?: No Have you ever done anything, started to do anything, or prepared to do anything to end your life?: No Examination Category Sub-Category Detail Notes Category Not es Psychiatry Appearance: well-groomed Attitude: cooperative Attention: normal in conversati on Orientation: awake, alert and doug ented x 3 Affect / mood: appropriate Speech / language: appropriate pitch/mo dulation, clear and coherent, normal rate, volume, and articulation (RVR), proper grammar used Insight: good Judgement: good Thought process: intact Thought content: appropriate Suicidal ideation: none Homicidal ideation: none Intellectual functioning: above average
--- OUTSIDE RECORDS SUMMARY | 2024-04-11 11:05 | XMS_ITS | Patient Health Summary ---
Author Organization [facility] Address [address] [place] [address] Care Team Providers Care Salvage Repairer Name Role Phone Maldonado Robles MD Primary Care Provider [phone] Note from [facility],non-owned Affiliates and Associated Physician Practices is amultiple site organization consisting of ambulatory clinics and hospital sitesin [place], [place], [place] and [place]. This disclosure is being madepursuant to the Care Everywhere program and may not contain all information available regarding this patient. Last updated 17.[facility] Morning Tec Active Problems Problem Noted Date Diagnosed Date [...] on file Sexual Orientation Not on file Procedures * EKG 12-LEAD(Performed 01/13/2010) * HEMOGLOBIN A1C - POINT OF CARE (AMB) [facility](Performed 01/07/2010) Results * EKG 12-LEAD (01/13/2010) Kwaku Echavarria MD ECG ORDERABLES [facility] * HEMOGLOBIN A1C - POINT OF CARE (AMB) [facility] (01/07/2010 4:00 PM PBX OPERATOR) Hemoglobin A1c POCT 5.8 [facility] Capillary blood specimen (specimen) 01/07/2010 4:00 PM PBX OPERATOR Kwaku Echavarria MD LAB - POINT OF CARE ORDERABLES Performing Organization Address City/State/[facility] Co de Phone Number [facility] Care Teams Salvage Repairer Relationship Specialty Start Date End Date Maldonado Robles MD [address] [place] [address] PCP - General 11/24/11
--- OUTSIDE RECORDS SUMMARY | 2024-04-11 11:06 | XMS_ITS ---
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 Name Role Phone Mladonado Robles MD Primary Care Provider Daina Michaud Unavailable [phone] Allergies Allergen (clinical drug ingredient) Drug/Non Drug Allergy documented on EMR Reaction Allergy Type Onset Date Status dexamethasone dexAMETHasone Unknown Drug Allergy Active citalopram Citalopram Unknown Drug Allergy 06/17/2023 Acti ve REASON FOR VISIT f/u rx Medications Medication SIG (Take, Route, Frequency, Duration) Notes Start Date End Date Status Ipratropium-Albutero l 0.5-2.5 (3) MG/3ML Inhalation 07/07/2023 Active CALCIUM CARBONATE 600 MG-VITAMIN D3 12.5 MCG (500 UNIT) CAPSULE *Reorder from [facility] for eRx and Interaction Alerts* 07/07/2023 Active Famotidine 40 MG Oral 07/07/2023 Ac tive Auvi-Q 0.3 MG/0.3ML Injection 07/07/2023 Active Theophylline 600 mg Oral *Pick strength-form from [facility] for eRX* 07/07/2023 Active Symbicort 160-4.5 MCG/ACT Inhalation 07/07/2023 Not-Taking Benzonatate 100 MG Oral 07/07/2023 Not-Taking Levothyroxine Sodium 112 MCG Oral 07/07/2023 Active Nitrofurantoin Monohyd Macro 100 MG Oral 07/07/2023 Not-Blake ing ONE TOUCH LANCETS MISCELLANEOUS *Reorder from [facility] for eRx and Interaction Alerts* 07/07/2023 Active busPIRone HCl 15 MG TAKE 1 TABLET BY MOUTH THREE TIMES A DAY WITH MEALS FOR ANXIETY for 90 Active Fetzima 40 MG 1 capsule Orally Once a day for 90 days Active traZODone HCl 50 MG 1 tablet at bedtime Oral at bedtime for 90 days Active Januvia 100 MG Oral 07/07/2023 Not- Taking Sertraline HCl 100 MG 1 tablet Oral Once a day for 90 days d/c Sertraline 50 mg dose d/c Wellbutrin Active Fetzima 40 MG 1 capsule Oral Once a day for 90 days Active Xolair 150 MG Subcutaneous 07/07/2023 Ac tive Azelastine HCl 137 MCG/SPRAY Nasal 07/07/2023 Active OneTouch Ultra In Vitro 07/07/2023 Acti ve busPIRone HCl 15 MG 1 tablet Oral Twice a day for 90 days Active ProAir HFA 108 (90 Base) MCG/ACT Inhalation 07/07/2023 Active Farxiga 10 MG Oral 07/07/2023 Activ e metFORMIN HCl ER 500 MG Oral 07/07/2023 Active OneTouch Ultra Blue In Vitro 07/07/2023 Active Trelegy Ellipta 200-62.5-25 MCG/ACT Inhalation *Pick strength-form from [facility] for eRX* 07/07/2023 Active Montelukast Sodium 10 MG Oral 07/07/2023 Active Lisinopril 30 MG Oral 07/07/2023 Ac tive Social History Tobacco Use: Social History Observation Description Date Details (start date - stop date) Former Smoker 04/22/1992 - 10/23/2010 Sex Assigned At : Social History Observation Description Sex Assigned At Female Tobacco Control (Standard) Question Answer Notes When did you start smoking? 04/22/1992 When did you stop smoking? 10/23/2010 How long has it been since you last smoked? 5-10 years Tobacco use: Former smoker Vital Signs Blood pressure systolic 111 mm Hg 04/04/19 25 Blood pressure diastolic 73 mm Hg 025 Heart Rate 81 /min 04/04/2024 Height 66.00 in 04/04/2024 Weight 154 lbs 04/04/2024 BMI 24.85 kg/m2 04/04/2024 Height-cm 167.64 cm 04/04/2024 Weight-kg 69.85 kg 04/04/2024 Encounters Encounter Location Date Provider Diagnosis [facility], [facility] [address] [place] [address] 04/04/2024 Daina Wrad Generalized anxiety disorder F41.1 ; MDD (major depressive disorder), recurrent episode, mild F33.0 ; Primary insomnia F51.01 ; Other intermediate (current) drug therapy Z79.899 and Attention-deficit hyperactivity disorder, combined type F90.2 Assessments Encounter Date Diagnosis (ICD Code) Assessment Notes Treatment Notes Treatment Clinical Notes Section Notes 04/04/2024 Generalized anxiety disorder (ICD-10 - F41.1) Generalized Anxiety Disorder: Care Instructions material was published, Learning About Generalized Anxiety Disorder material was published, Learning About Anxiety Disorders material was published 1. major depression - having increase depression, irritable and anxiety Fetzima 40 mg daily- monitor b/p D/C Wellbutrin XL 150 mg daily in am Increase Zoloft 100 mg daily - discuss and educated on rx - educated on all medications, benefits, side effects and risk, and educated on depression, anxiety, and ADHD, mood d/o and educated on compliance of medications, appointment's, educated on serotonin syndrome, continue therapy discussion with patient about course of treatment and patient instructions. educated on ways to find time for self daily obtain labs PCPcontinue therapy educated on light box therapy and proper use - patient will consider- mammogram 02/13 and diagnostic 03/17 educated on importance prevention care PAP, mammogram, labs, PE, ect 2. Generalized anxiety disorder -Sertraline Buspar 15 mg three times a day- anxiety refer to therapy 3. Primary insomnia - decrease caffeine Trazodone 50 mg for sleep sleep hygiene education given refer to therapy CBT for sleep refer to PCP - RLS and possible sleep study 4. Attention deficit hyperactivity disorder, predominantly inattentive type -no rx no cannabis use educated no early refills on control limit caffeine therapy monitor 5. Long-term drug therapy 04/04/2024 MDD (major depressive disorder), recurrent episode, mild (ICD-10 - F33.0) Preventing Depression From Coming Back: Care Instructions material was published, Depression Treatment: Care Instructions material was published, Seasonal Affective Disorder: Care Instructions material was published 1. major depression - having increase depression, irritable and anxiety Fetzima 40 mg daily- monitor b/p D/C Wellbutrin XL 150 mg daily in am Increase Zoloft 100 mg daily - discuss and educated on rx - educated on all medications, benefits, side effects and risk, and educated on depression, anxiety, and ADHD, mood d/o and educated on compliance of medications, appointment's, educated on serotonin syndrome, continue therapy discussion with patient about course of treatment and patient instructions. educated on ways to find time for self daily obtain labs PCPcontinue therapy educated on light box therapy and proper use - patient will consider- mammogram 02/13 and diagnostic 03/17 educated on importance prevention care PAP, mammogram, labs, PE, ect 2. Generalized anxiety disorder -Sertraline Buspar 15 mg three times a day- anxiety refer to therapy 3. Primary insomnia - decrease caffeine Trazodone 50 mg for sleep sleep hygiene education given refer to therapy CBT for sleep refer to PCP - RLS and possible sleep study 4. Attention deficit hyperactivity disorder, predominantly inattentive type -no rx no cannabis use educated no early refills on control limit caffeine therapy monitor 5. Long-term drug therapy 04/04/2024 Primary insomnia (ICD-10 - F51.01) Insomnia: Care Instructions material was published, Learning About Sleeping Well material was published 1. major depression - having increase depression, irritable and anxiety Fetzima 40 mg daily- monitor b/p D/C Wellbutrin XL 150 mg daily in am Increase Zoloft 100 mg daily - discuss and educated on rx - educated on all medications, benefits, side effects and risk, and educated on depression, anxiety, and ADHD, mood d/o and educated on compliance of medications, appointment's, educated on serotonin syndrome, continue therapy discussion with patient about course of treatment and patient instructions. educated on ways to find time for self daily obtain labs PCPcontinue therapy educated on light box therapy and proper use - patient will consider- mammogram 02/13 and diagnostic 03/17 educated on importance prevention care PAP, mammogram, labs, PE, ect 2. Generalized anxiety disorder -Sertraline Buspar 15 mg three times a day- anxiety refer to therapy 3. Primary insomnia - decrease caffeine Trazodone 50 mg for sleep sleep hygiene education given refer to therapy CBT for sleep refer to PCP - RLS and possible sleep study 4. Attention deficit hyperactivity disorder, predominantly inattentive type -no rx no cannabis use educated no early refills on control limit caffeine therapy monitor 5. 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 major depression - having increase depression, irritable and anxiety Fetzima 40 mg daily- monitor b/p D/C Wellbutrin XL 150 mg daily in am Increase Zoloft 100 mg daily - discuss and educated on rx - educated on all medications, benefits, side effects and risk, and educated on depression, anxiety, and ADHD, mood d/o and educated on compliance of medications, appointment's, educated on serotonin syndrome, continue therapy discussion with patient about course of treatment and patient instructions. educated on ways to find time for self daily obtain labs PCPcontinue therapy educated on light box therapy and proper use - patient will consider- mammogram 02/13 and diagnostic 03/17 educated on importance prevention care PAP, mammogram, labs, PE, ect 2. Generalized anxiety disorder -Sertraline Buspar 15 mg three times a day- anxiety refer to therapy 3. Primary insomnia - decrease caffeine Trazodone 50 mg for sleep sleep hygiene education given refer to therapy CBT for sleep refer to PCP - RLS and possible sleep study 4. Attention deficit hyperactivity disorder, predominantly inattentive type -no rx no cannabis use educated no early refills on control limit caffeine therapy monitor 5. Long-term drug therapy 04/04/2024 Attention-defici t hyperactivity disorder, combined type (ICD-10 - F90.2) Attention Deficit Hyperactivity Disorder (ADHD) in Adults: Care Instructions material was published 1. major depression - having increase depression, irritable and anxiety Fetzima 40 mg daily- monitor b/p D/C Wellbutrin XL 150 mg daily in am Increase Zoloft 100 mg daily - discuss and educated on rx - educated on all medications, benefits, side effects and risk, and educated on depression, anxiety, and ADHD, mood d/o and educated on compliance of medications, appointment's, educated on serotonin syndrome, continue therapy discussion with patient about course of treatment and patient instructions. educated on ways to find time for self daily obtain labs PCPcontinue therapy educated on light box therapy and proper use - patient will consider- mammogram 02/13 and diagnostic 03/17 educated on importance prevention care PAP, mammogram, labs, PE, ect 2. Generalized anxiety disorder -Sertraline Buspar 15 mg three times a day- anxiety refer to therapy 3. Primary insomnia - decrease caffeine Trazodone 50 mg for sleep sleep hygiene education given refer to therapy CBT for sleep refer to PCP - RLS and possible sleep study 4. Attention deficit hyperactivity disorder, predominantly inattentive type -no rx no cannabis use educated no early refills on control limit caffeine therapy monitor 5. Long-term drug therapy Plan Of Treatment Medication Medication Name Sig Start Date Stop Date Notes traZODone HCl 50 MG 1 tablet at bedtime Oral at bedtime for 90 days Sertraline HCl 100 MG 1 tablet Oral Once a day for 90 days d/c Sertraline 50 mg dose d/c Wellbutrin Fetzima 40 MG 1 capsule Oral Once a day for 90 days buPROPion HCl ER (XL) 150 MG 1 tablet in the morning Oral Once a day for 90 days busPIRone HCl 15 MG 1 tablet Oral Twice a day for 90 days Treatment Notes Assessment Notes Generalized anxiety disorder Generalized Anxiety Disorder: Care Instructions material was published, Learning About Generalized Anxiety Disorder material was published, Learning About Anxiety Disorders material was published MDD (major depressive disord er), recurrent episode, mild Preventing Depression From Coming Back: Care Instructions material was published, Depression Treatment: Care Instructions material was published, Seasonal Affective Disorder: Care Instructions material was published Primary insomnia Insomnia: Care Instr uctions material was published, Learning About Sleeping Well material was published Other intermediate (current) drug therapy M edication Refill: Care Instructions material was published Attention-deficit hyperactiv ity disorder, combined type Attention Deficit Hyperactivity Disorder (ADHD) in Adults: Care Instructions material was published Next Appt Details Follow Up: 4 Weeks, Reason: increase Zoloft and stop Wellbutrin f/u Provider Name:Martha Bernardo, 04/18/2024 08:00:00 AM, [address], [facility] [address], [place], [address], Provider Name:Daina Ward , 05/02/2024 08:15:00 AM, [address], [address], [place], [address], Progress Notes * BEN EDMONDSOB:[birth year] (44 yo F)Acc No.[id number]:04/04/2024 Patient: LEEANN CELIS Provider: STEFANIE GREENBERG :1980 A ge:44 Y S ex:Female Date:04/04/2024 Address:[address] [place], [place] [id number] Pcp:Maldonado Robles MD Subjective: * Chief Complaints: * 1 . F/u rx. * HPI: D epression Screening: MARCOS-7 (2018 Edition) F eeling nervous, anxious, or on edge?More than half the days, N ot being able to stop or control worrying M ore than half the days, W orrying too much about different things M ore than hafl the days, T rouble relaxing M ore than half the days, B eing so restless that it is hard to sit still N early every day, B ecoming easily annoyed or irritable N early every day, F eeling afraid as if something awful might happen N ot at all, T otal MARCOS-7 Score 6 , I nterpretation of Total ( 5 to 9) Mild. C [place]-Suicide Severity Rating Scale: Suicide Risk [...] days, F eeling down, depressed, or hopeless S everal days, T rouble falling or staying asleep, or sleeping too much M ore than half the days, F eeling tired or having little energy M ore than half the days, P oor appetite or overeating N early every day, F eeling bad about yourself or that you are a failure, or have let yourself or your family down N ot at all, T rouble concentrating on things, such as reading the newspaper or watching television?More than half the days, M oving or speaking so slowly that other people could have noticed; or the opposite, being so fidgety or restless that you have been moving around a lot more than usual M ore than half the days, T houghts that you would be better off or of hurting yourself in some way N ot at all, T otal Score 5 , I nterpretation M ild Depression.?Intervention D epression Screening Findings P ositnita, F ollow-Up for Depression?Management of mental health treatment, S uicide Risk Assessment Performed , Additional Evaluation for Depression P sychiatric interview and evaluation, N jono of the standardized tool used for adult depression screening: P atient Health Questionnaire (PHQ-9).? Follow up for depression, anxiety, sleep, ADD and grief, OCD chronic since last visit been up and down with mind moving and I do move at sloath pace I am exhausted I know I need to go to bed earlier,but it is hard, I watch grand daughter 4x week and I take on a lot and feel like no choice they rely on me, and not the issue I am tired and no emergy and frustrasted, and I lose my cool with not sleeping, and I kick in my sleep no sleep study hx I go to bed 10:30 but awake for 2 hours before asleep r/t on phone. 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 I feel not sad or down, no hopeless or helpless, just blah feeling and have a raining cloud over me and easy to be vrabby all the time, and dealing with 13 year old son, and we but heads, he loves ot debate and honors in school. I get fidgety and restless and the anxious no psychosis no ping, no SI/HI. OCD always and running on ice feeling somedays, I like things done a certain way and clean, m otivation comes and goes, I feel like RLS and need to talk to PCP about it and I have hip pain for a while I pulled hip out 2 years ago and need XRay done, I lose appetite since on Trucility and daily struggle and I lost about 10 pounds nad if certain foods do not look good to me to eat not hungry.See PCP with it, I have forget in am at times and last 2 weeks forgot x2, concentration and focus tunnel vision, I am putting pill box on desk to remember, back on road a lot and plays a big factor also Educated on prevention care PAP, Mammogram, colonoscopy, labs etc Denies SI/HI no plans or intent no thoughts harm to self or others, no past attempts FH none Mom - depression and anxiety, alcoholism, cancer, dad- alcoholism aunt depression and anxiety Mom side family alcohol abuse ETOH none smoking former drugs none BC tubal LABS recently rx hx HX Celexa, Wellbutrin, Fetzima, Effexor, Cymbalta, Adderall (agitated and anxiety), Zoloft. * ROS: P atient reports w eight loss (__10_ lbs) b ut reports no fever and no significant weight gain. She reports no frequent diarrhea (chronic- gall bladder removed and what eat) b ut reports no abdominal pain, reported nausea, no vomiting, no constipation, and GERD.- GI scheduled She reports i ncreased urinary frequency. incontience - see PCP She reports a rthralgias/joint pain (knees) and back, hip pain (lower) b ut reports no muscle aches, no muscle weakness, no neck pain, and no difficulty walking. She reports no weakness and no gait dysfunction; hx UTI. She reports a nxiety and depression, sleep disturbances (poor sleep habits), feeling safe in a relationship, no alcohol abuse, no hallucinations, no suicidal thoughts, no mood swings, no memory loss, and no agitation. She reports wears glasses She report no chest pain, no shortness of breath, and no palpitations. She reports no cough She reports fatigue.- poor sleep habits RLS- seeing PCP P erformance Met: N ormal blood pressure reading documented, follow-up not required ( G8783). * Medical History: P ricardalems: Abnormal grief reaction, Attention deficit hyperactivity disorder, Attention deficit hyperactivity disorder, predominantly inattentive type, Generalized anxiety disorder, Long-term drug therapy, Mild recurrent major depression, Moderate recurrent major depression, Primary insomnia, ,. * Social History: T obacco Use: T obacco Control (Standard) W hen did you start smoking? 0 04/22/1992, W hen did you stop smoking? 0 10/23/2010, H ow long has it been since you last smoked? 5 -10 years,?Tobacco use: F ormer smoker. M igrated Social History: M igrated Social History: Alcohol Intake: None 06/23/2022,Tobacco Years: Former smoker 12/26/2019,Smoking Status: 10 04/05/2023. D rug/Alcohol: D o you smoke marijuana?: Denies. Do you drink alcohol?: No. M iscellaneous: A dvance Care Planning A re you your own decision-maker Y es, D o you have Power of Fruit Or Nut Farmworker for Health or Medical? N o. * Medications: T aking buPROPion HCl ER (XL) 150 MG Tablet [...] MISCELLANEOUS , Notes to Pharmacist: *[facility] and Interaction Alert[facility]*, Taking Auvi-Q 0.3 MG/0.3ML Solution Auto-injector Injection , Taking Theophylline 600 mg Tablet Extended Release 24 Hour Oral , Notes to Pharmacist: *[facility]*, Taking CALCIUM CARBONATE 600 MG-VITAMIN D3 12.5 MCG (500 UNIT) CAPSULE , Notes to Pharmacist: *[facility] eRx and Interaction Alerts*, Taking Famotidine 40 MG Tablet Oral , Taking Ipratropium-Albuterol 0.5-2.5 (3) MG/3ML Solution Inhalation , Taking Trelegy Ellipta 200-62.5-25 MCG/ACT Aerosol Powder Breath Activated Inhalation , Notes to Pharmacist: *[facility]*, Taking Montelukast Sodium 10 MG [...] A DAY WITH MEALS FOR ANXIETY , Taking Fetzima 40 MG Capsule Extended Release 24 Hour 1 capsule Orally Once a day , Not-Taking Januvia 100 MG Tablet Oral , Not-Taking Symbicort 160- 4.5 MCG/ACT Aerosol Inhalation , Not-Taking Benzonatate 100 MG Capsule Oral , Not- Taking Nitrofurantoin Monohyd Macro 100 MG Capsule Oral , Medication List reviewed and reconciled with the patient * Allergies: d exAMETHasone: Allergy - Onset Date 06/17/2023, Citalopram: Allergy - Onset Date 06/17/2023. Objective: * Vitals: B P:111/73mm Hg, HR:81/min, Wt:154lbs, Wt-k.85 kg, Ht: 66.00 in, Ht-cm: 167.64 cm, BMI:24.85Index, Body Surface Area: 1.8. * Examination: P sychiatry: Appearance: w ell-groomed, well-nourished, appears stated age. Abnormal body movements: n one. Affect / mood: a nxious. Aggression: l ow. Anger control: g ood. Attention: g ood. Attitude: c ooperative. Homicidal ideation: n one. Suicidal ideation: n one. Memory status: n o impairment noted. Degree of awareness of surroundings: w ithin normal limits.? Delusions: n o. Hallucinations: n o. Impulse control: g ood. Insight: g ood. Intellectual functioning: a verage. Comprehension - Intellectual function: a verage. Judgement: g ood. Orientation: a wake, alert and oriented x 3. Perceptual disorders: n o perceptual disorder noted. Psychomotor activity: w ithin normal range. Speech / language: a ppropriate pitch/modulation, clear and coherent, proper grammar used. Thought content: a ppropriate. Thought process: i ntact. Assessment: * Assessment: 1. M DD (major depressive disorder), recurrent episode, mild - F33.0 (Primary) 2 . G eneralized anxiety disorder - F41.1 3 . P rimary insomnia - F51.01? 4. O ther intermediate (current) drug therapy - Z79.899 5 . A ttention-deficit hyperactivity disorder, combined type - F90.2 1. major depression - having increase depression, irritable and anxiety Fetzima 40 mg daily- monitor b/p D/C Wellbutrin XL 150 mg daily in am Increase Zoloft 100 mg daily - discuss and educated on rx - educated on all medications, benefits, side effects and risk, and educated on depression, anxiety, and ADHD, mood d/o and educated on compliance of medications, appointment's, educated on serotonin syndrome, continue therapy discussion with patient about course of treatment and patient instructions. educated on ways to find time for self daily obtain labs PCPcontinue therapy educated on light box therapy and proper use - patient will consider- mammogram 02/13 and diagnostic 03/17 educated on importance prevention care PAP, mammogram, labs, PE, ect 2. Generalized anxiety disorder -Sertraline Buspar 15 mg three times a day- anxiety refer to therapy 3. Primary insomnia - decrease caffeine Trazodone 50 mg for sleep sleep hygiene education given refer to therapy CBT for sleep refer to PCP - RLS and possible sleep study 4. Attention deficit hyperactivity disorder, predominantly inattentive type -no rx no cannabis use educated no early refills on control limit caffeine therapy monitor 5. Long-term drug therapy Plan: * Treatment: 2. G eneralized anxiety disorder Refill busPIRone HCl Tablet, 15 MG, 1 tablet, Oral, Twice a day, 90 days, 180 Tablet, Refills 0.? Notes: Generalized Anxiety Disorder: Care Instructions material was published, Learning About Generalized Anxiety Disorder material was published, Learning About Anxiety Disorders material was published 3. P rimary insomnia Refill traZODone HCl Tablet, 50 MG, 1 tablet at bedtime, Oral, at bedtime, 90 days, 90 Tablet, Refills 0. Notes: Insomnia: Care Instructions material was published, Learning About Sleeping Well material was published 4. 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 A ttention-deficit hyperactivity disorder, combined type Notes: Attention Deficit Hyperactivity Disorder (ADHD) in Adults: Care Instructions material was published * Procedure Codes: 9 6127 BEHAV ASSMT W/SCORE & DOCD/STAND INSTRUMENT, 35139 BEHAV ASSMT W/SCORE & DOCD/STAND INSTRUMENT, G8783 NORMAL BP READING DOC F/U NOT RQR, G8431 CLIN DEPRESSION SCREEN DOC, G2211 VISIT COMPLEXITY INHERENT TO ONGOING CARE RELATED TO A PATIENT'S SINGLE, SERIOUS CONDITION OR A COMPLEX CONDITION * Follow Up: 4 Weeks (Reason: increase Zoloft and stop Wellbutrin f/u) * Billing Information: * Visit Code: 09389 OFFICE OUTPATIENT VISIT 25 MINUTES DETAILED HISTORY AND EXAM/MODERATE MEDICAL DECISION MAKING. * Procedure Codes: 28005 BEHAV ASSMT W/SCORE & DOCD/STAND INSTRUMENT. 54395 BEHAV ASSMT W/SCORE & DOCD/STAND INSTRUMENT. G8783 NORMAL BP READING DOC F/U NOT RQR. G8431 CLIN DEPRESSION SCREEN DOC. G2211 VISIT COMPLEXITY INHERENT TO ONGOING CARE RELATED TO A PATIENT'S SINGLE, SERIOUS CONDITION OR A COMPLEX CONDITION. * TEGIC PLANNING SPECIALIST Sign off status: Completed true * Provider: STEFANIE GREENBERG Date: 0 04/04/2024 Generated for Valerio julio/Karel/Beatrice on: 0 04/11/2024 11:05 AM STRATEGIC PLANNING SPECIALIST History and Physical Notes * HPI (History of Present Illness) Category Sub-Category Detail Notes Category Not es Depression screening PHQ-9 Little inte rest or pleasure in doing things: Several days Follow up for depression, anxiety, sleep, ADD and grief, OCD chronic since last visit been up and down with mind moving and I do move at sloath pace I am exhausted I know I need to go to bed earlier,but it is hard, I watch grand daughter 4x week and I take on a lot and feel like no choice they rely on me, and not the issue I am tired and no emergy and frustrasted, and I lose my cool with not sleeping, and I kick in my sleep no sleep study hx I go to bed 10:30 but awake for 2 hours before asleep r/t on phone. 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 I feel not sad or down, no hopeless or helpless, just blah feeling and have a raining cloud over me and easy to be vrabby all the time, and dealing with 13 year old son, and we but heads, he loves ot debate and honors in school. I get fidgety and restless and the anxious no psychosis no ping, no SI/HI. OCD always and running on ice feeling somedays, I like things done a certain way and clean, motivation comes and goes, I feel like RLS and need to talk to PCP about it and I have hip pain for a while I pulled hip out 2 years ago and need XRay done, I lose appetite since on [employer] and daily struggle and I lost about 10 pounds nad if certain foods do not look good to me to eat not hungry.See PCP with it, I have forget in am at times and last 2 weeks forgot x2, concentration and focus tunnel vision, I am putting pill box on desk to remember, back on road a lot and plays a big factor also Educated on prevention care PAP, Mammogram, colonoscopy, labs etc Denies SI/HI no plans or intent no thoughts harm to self or others, no past attempts FH none Mom - depression and anxiety, alcoholism, cancer, dad- alcoholism aunt depression and anxiety Mom side family alcohol abuse ETOH none smoking former drugs none BC tubal LABS recently rx hx HX Celexa, Wellbutrin, Fetzima, Effexor, Cymbalta, Adderall (agitated and anxiety), Zoloft Feeling down, depressed, or hopeless: Se veral days Trouble falling or staying a sleep, or sleeping too much: More than half the days Feeling tired or having little energy: M ore than half the days Poor appetite or overeating: Nearly ever y day Feeling bad about yourself o r that you are a failure, or have let yourself or your family down: Not at all Trouble concentrating on thi ngs, such as reading the newspaper or watching television: More than half the days Moving or speaking so slowly that other people could have noticed; or the opposite, being so fidgety or restless that you have been moving around a lot more than usual: More than half the days Thoughts that you would be b katelyn off or of hurting yourself in some way: Not at all Total Score: 5 Interpretation: Mild Depression Intervention Depression Screening Findings: P ositve Follow-Up for Depression: Management of mental health treatment Suicide Risk Assessment Performed: Additional Evaluation for De pression: Psychiatric interview and evaluation Name of the standardized too l used for adult depression screening:: Patient Health Questionnaire (PHQ-9) Depression Screening MARCOS-7 (2018 Edition) Feelin g nervous, anxious, or on edge: More than half the days Not being able to stop or control worryi ng: More than half the days Worrying too much about different things : More than hafl the days Trouble relaxing: More than half the day s Being so restless that it is hard to sit still: Nearly every day Becoming easily annoyed or irritable: Ne miki every day Feeling afraid as if something awful harry ht happen: Not at all Total MARCOS-7 Score: 6 Interpretation of Total: (5 to 9) Mild [place]-Suicide Severity Rating Scale Suicide Risk (CSRS-screener) in [...] Detail Notes Category Not es Psychiatry Appearance: well-groomed, we ll-nourished, appears stated age Attitude: cooperative Psychomotor activity: within normal rang e Abnormal body movements: none Attention: good Degree of awareness of surroundings: wit hin normal limits Orientation: awake, alert and doug ented x 3 Affect / mood: anxious Speech / language: appropriate pitch/mo dulation, clear and coherent, proper grammar used Insight: good Judgement: good Thought process: intact Thought content: appropriate Perceptual disorders: no perceptual diso rder noted Aggression: low Anger control: good Suicidal ideation: none Homicidal ideation: none Intellectual functioning: average Impulse control: good Memory status: no impairment noted Delusions: no Hallucinations: no Comprehension - Intellectual function: a verage
--- OUTSIDE RECORDS SUMMARY | 2024-04-11 11:21 | XMS_ITS ---
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 Name Role Phone Maldonado Robles MD Primary Care Provider UnavailDaina Nguyen Unavailable [phone] aMrtha Garcia Unavailable [phone] REASON FOR VISIT Family system stressors Medications Medication SIG (Take, Route, Frequency, Duration) Notes Start Date End Date Status busPIRone HCl 15 MG TAKE 1 TABLET BY MOUTH THREE TIMES A DAY WITH MEALS FOR ANXIETY for 90 Active Benzonatate 100 MG Oral 07/07/2023 Not-Taking Nitrofurantoin Monohyd Macro 100 MG Oral 07/07/2023 Not-Blake ing Januvia 100 MG Oral 07/07/2023 Not- Taking Symbicort 160-4.5 MCG/ACT Inhalation 07/07/2023 Not-Taking OneTouch Ultra Blue In Vitro 07/07/2023 Active Xolair 150 MG Subcutaneous 07/07/2023 Ac tive Azelastine HCl 137 MCG/SPRAY Nasal 07/07/2023 Active Farxiga 10 MG Oral 07/07/2023 Activ e OneTouch Ultra In Vitro 07/07/2023 Acti ve metFORMIN HCl ER 500 MG Oral 07/07/2023 Active Montelukast Sodium 10 MG Oral 07/07/2023 Active Lisinopril 30 MG Oral 07/07/2023 Ac tive Trelegy Ellipta 200-62.5-25 MCG/ACT Inhalation *Pick strength-form from [employer] for eRX* 07/07/2023 Active ProAir HFA 108 (90 Base) MCG/ACT Inhalation 07/07/2023 Active CALCIUM CARBONATE 600 MG-VITAMIN D3 12.5 MCG (500 UNIT) CAPSULE *[facility] and Interaction Alerts* 07/07/2023 Active Famotidine 40 MG Oral 07/07/2023 Ac tive Auvi-Q 0.3 MG/0.3ML Injection 07/07/2023 Active Theophylline 600 mg Oral *[facility]* 07/07/2023 Active Ipratropium-Albutero l 0.5-2.5 (3) MG/3ML Inhalation 07/07/2023 Active Levothyroxine Sodium 112 MCG Oral 07/07/2023 Active ONE TOUCH LANCETS MISCELLANEOUS *[facility] and Interaction Alerts* 07/07/2023 Active traZODone HCl 50 MG 1 tablet at bedtime Oral at bedtime for 90 days Active Sertraline HCl 50 MG 1 tablet Oral Once a day for 90 days Active buPROPion HCl ER (XL) 150 MG 1 tablet in the morning Oral Once a day for 90 days Active Fetzima 40 MG 1 capsule Oral Once a day for 90 days Active Social History Sex Assigned At : Social History Observation Description Sex Assigned At Female Encounters Encounter Location Date Provider Diagnosis [facility] [address] [facility] [address] [place] [address] 03/07/2024 Martha Garcia Attention-deficit hyperactivity disorder, predominantly inattentive type F90.0 ; Generalized anxiety disorder F41.1 and Major depressive disorder, recurrent, mild F33.0 Assessments Encounter Date Diagnosis (ICD Code) Assessment Notes Treatment Notes Treatment Clinical Notes Section Notes 03/07/2024 Attention-deficit hyperactivity disorder, predominantly inattentive type (ICD-10 - F90.0) 03/07/2024 Generalized anxiety disorder (ICD-10 - F41.1) 03/07/2024 Major depressive disorder, recurrent, mild (ICD-10 - F33.0) Plan Of Treatment Next Appt Details Follow Up: 2 Weeks, Reason: Provider Name:Martha Garcia, 04/18/2024 08:00:00 AM, [address], [address], [place], [address], Provider Name:Daina Ward , 05/02/2024 08:15:00 AM, [address], [facility] [address], [place], [address], Progress Notes * BEN EDMONDSOB:[birth year] (44 yo F)Acc No.[id number]:03/07/2024 Patient: LEEANN CELIS Provider: Lacey GARCIA LCSW :1980 A ge:44 Y S ex:Female Date:03/07/2024 Address:[address] [place], [place] [id number] Pcp:Maldonado Robles MD Data: * Time Tracker: * Date Start Time End Time Duration User Type Captured By Mode Notes 03/07/2024 08:06 AM 09:12 AM 01:05:55 Therapist Martha Garcia * Chief Complaints: * 1 . Family system stressors. * HPI: P sychotherapy Information: Date: 07 March 2024 Current symptoms: Worry, tension, Severity: moderate to severe Context: Cl. reported stress associated with feeling of having to take care of everything for family members. Had received call from mother this morning that increased guilt for moving to [place]. High level of pressure to do everything around the house and care for children and grandchildren. Cl. reported feeling exhausted and never having time for self Intervention: During this session, clinician prompted Cl. to process thoughts and feelings associated with f amily system stressorsand difficulties with executive function for the purpose of gaining insight. Clinician [...] Grandmother: Family history of cancer .? * Medications: T aking Fetzima 40 MG [...] MISCELLANEOUS , Notes to Pharmacist: *[facility] and Interaction Alerts*, Taking Auvi-Q 0.3 MG/0.3ML Solution Auto-injector Injection , Taking Theophylline 600 mg Tablet Extended Release 24 Hour Oral , Notes to Pharmacist: *Pick strength-form from [facility] for eRX*, Taking CALCIUM CARBONATE 600 MG-VITAMIN D3 12.5 MCG (500 UNIT) CAPSULE , Notes to Pharmacist: *Reorder from [facility] for eRx and Interaction Alerts*, Taking Famotidine 40 MG Tablet Oral , Taking Ipratropium-Albuterol 0.5-2.5 (3) MG/3ML Solution Inhalation , Taking Trelegy Ellipta 200-62.5-25 MCG/ACT Aerosol Powder Breath Activated Inhalation , Notes to Pharmacist: *Pick strength-form from [facility] for eRX*, Taking Montelukast Sodium 10 MG [...] 9 0837 PSYCHOTHERAPY W/PATIENT 60 MINUTES * Follow Up: 2 Weeks * Billing Information: * Visit Code: * Procedure Codes: 03406 PSYCHOTHERAPY W/PATIENT 60 MINUTES. * ET ANALYSIS DIRECTOR Sign off status: Completed Signatures: No Ad Hoc Signature Added true * Provider: Lacey GARCIA LCSW Date: 0 03/07/2024 Generated for Valerio julio/Karel/eTgabbi on: 0 04/11/2024 11:06 AM MARKET ANALYSIS DIRECTOR History and Physical Notes * HPI (History of Present Illness) Category Sub-Category Detail Notes Category Not es Psychotherapy Information Date: 07 March 2024 Current symptoms: Worry, tension, Severity: moderate to severe Context: Cl. reported stress associated with feeling of having to take care of everything for family members. Had received call from mother this morning that increased guilt for moving to [place]. High level of pressure to do everything around the house and care for children and grandchildren. Cl. reported feeling exhausted and never having time for self Intervention: During this session, clinician prompted Cl. to process thoughts and feelings associated with family system stressorsand difficulties with executive function for the purpose of gaining insight. Clinician provided support and validation where appropriate. Response: Cl. participated actively in discussion and displayed good insight. Cl. appears to be making good progress. Plan: Examination Category Sub-Category Detail Notes Category Not [...]
--- OUTSIDE RECORDS SUMMARY | 2024-04-11 11:21 | XMS_ITS | Patient Health Record ---
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 Role Phone Maldonado Robles MD Primary Care Provider UnavailDaina Nguyen Unavailable [phone] Martha Bernardo Unavailable [phone] Migration, Provider Unavailable Unavailable Allergies Allergen (clinical drug ingredient) Drug/Non Drug Allergy documented on EMR Reaction Allergy Type Onset Date Status dexamethasone dexAMETHasone Unknown Drug Allergy Active citalopram Citalopram Unknown Drug Allergy 06/17/2023 Acti ve Reason For Referral No Information Medications Medication SIG (Take, Route, Frequency, Duration) Notes Start Date End Date Status Fetzima 40 MG 1 capsule Oral Once a day for 90 days Active Ipratropium-Albutero l 0.5-2.5 (3) MG/3ML Inhalation 07/07/2023 Active Trelegy Ellipta 200-62.5-25 MCG/ACT Inhalation *Pick strength-form from [employer] for eRX* 07/07/2023 Active CALCIUM CARBONATE 600 MG-VITAMIN D3 12.5 MCG (500 UNIT) CAPSULE *Reorder from [employer] for eRx and Interaction Alerts* 07/07/2023 Active busPIRone HCl 15 MG 1 tablet Oral Twice a day for 90 days Active Famotidine 40 MG Oral 07/07/2023 Ac tive traZODone HCl 50 MG 1 tablet at bedtime Oral at bedtime for 90 days Active Montelukast Sodium 10 MG Oral 07/07/2023 Active Sertraline HCl 100 MG 1 tablet Oral Once a day for 90 days d/c Sertraline 50 mg dose d/c Wellbutrin Active Lisinopril 30 MG Oral 07/07/2023 Ac tive ProAir HFA 108 (90 Base) MCG/ACT Inhalation 07/07/2023 Active Farxiga 10 MG Oral 07/07/2023 Activ e OneTouch Ultra In Vitro 07/07/2023 Acti ve metFORMIN HCl ER 500 MG Oral 07/07/2023 Active OneTouch Ultra Blue In Vitro 07/07/2023 Active busPIRone HCl 15 MG TAKE 1 TABLET BY MOUTH THREE TIMES A DAY WITH MEALS FOR ANXIETY for 90 Active Fetzima 40 MG 1 capsule Orally Once a day for 90 days Active Xolair 150 MG Subcutaneous 07/07/2023 Ac tive Azelastine HCl 137 MCG/SPRAY Nasal 07/07/2023 Active Januvia 100 MG Oral 07/07/2023 Not- Taking Symbicort 160-4.5 MCG/ACT Inhalation 07/07/2023 Not-Taking Benzonatate 100 MG Oral 07/07/2023 Not-Taking Auvi-Q 0.3 MG/0.3ML Injection 07/07/2023 Active Theophylline 600 mg Oral *Pick strength-form from [employer] for eRX* 07/07/2023 Active Levothyroxine Sodium 112 MCG Oral 07/07/2023 Active Nitrofurantoin Monohyd Macro 100 MG Oral 07/07/2023 Not-Blake ing ONE TOUCH LANCETS MISCELLANEOUS *Reorder from [employer] for eRx and Interaction Alerts* 07/07/2023 Active Immunizations Vaccine Route Administration Date Status Comme nts Hib (PRP-OMP), 3 dose schedule Unknown 02/09/2019 Admin istered Influenza virus vaccine, quadrivalent (IIV4), split virus, 0.25 mL dosage Unknown 11/18/2015 Administered Influenza virus vaccine, quadrivalent (IIV4), split virus, 0.25 mL dosage Unknown 12/23/2018 Administered Influenza virus vaccine, quadrivalent (IIV4), split virus, 0.25 mL dosage Unknown 01/13/2019 Administered Influenza virus vaccine, quadrivalent (IIV4), split virus, 0.25 mL dosage Unknown 11/22/2019 Administered Influenza virus vaccine, quadrivalent (IIV4), split virus, 0.25 mL dosage Unknown 12/23/2020 Administered Influenza, injectable, MDCK, preservative free Unknown 01/19/2017 Administered Influenza, injectable, MDCK, preservative free Unknown 12/25/2019 Administered Influenza, seasonal, injecta ble, preservative free, 3 yrs and above Unknown 01/26/2014 Administered Novel [id number], preservative free Unknown 03/06/2018 Administered Pfizer [employer] Covid-19 Vac cine 2nd dose Unknown 05/05/2020 Administered Pf[employer] Covid-19 Vac cine 2nd dose Unknown 05/27/2020 Administered Pf[employer] Covid-19 Vac cine 2nd dose Unknown 12/17/2020 Administered Pneumococcal conjugate PCV 7 Unknown 01/20/2019 Adminis tered Pneumococcal polysaccharide PPV23 Unknown 02/09/2019 Ad ministered Pneumococcal polysaccharide PPV23 Unknown 09/12/2019 Ad ministered Pneumococcal polysaccharide PPV23 Unknown 08/07/2020 Ad ministered Social History Tobacco Use: Social History Observation [...] smoked? 5-10 years Tobacco use: Former smoker Problems Problem Type SNOMED Code ICD Code Onset Dates Problem Status W/U Status Risk Notes Problem Mild recurrent major depression (19538576) Major depressive disorder, recurrent, mild (F33.0) Active confirmed Problem Moderate recurrent major depression (56231098) Major depressive disorder, recurrent, moderate (F33.1) 07/07/19 24 Active confirmed Problem Generalized anxiety disorder (95784259) Generalized anxiety disorder (F41.1) 07/07/19 24 Active confirmed Problem Primary insomnia (1388815) Primary insomnia (F51.01) 07/07/19 24 Active confirmed Problem Attention deficit hyperactivity disorder, 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, predominantly inattentive type (F90.0) Active confirmed Problem Attention deficit hyperactivity disorder, combined type (44759709) Attention-deficit hyperactivity disorder, combined type (F90.2) 12/04/19 21 Active confirmed Problem Long-term current use of drug therapy (397228662) Other intermission coordinator (current) drug therapy (Z79.899) 06/17/19 24 Active confirmed Problem 456601359 MDD (major depressive disorder), recurrent episode, mild (F33.0) Active confirmed [facility] [employer] Heart Rate 81 /min 04/04/2024 Respiratory Rate 16 /min 11/23/2023 Blood pressure diastolic 73 mm Hg 04/04/2024 Height-cm 167.64 cm 04/04/2024 Weight-kg 69.85 kg 04/04/2024 Height 66.00 in 04/04/2024 Blood pressure systolic 111 mm Hg 04/04/2024 Weight 154 lbs 04/04/2024 BMI 24.85 kg/m2 04/04/2024 Encounters Encounter Location Date Provider Diagnosis [facility] [address] [facility] [address] [address] 08/17/2023 Martha Bernardo Attention-deficit hyperactivity disorder, predominantly inattentive type F90.0 ; Generalized anxiety disorder F41.1 and Major depressive disorder, recurrent, mild F33.0 [facility] [place] [id number] [email or web address] [address] [address] 04/23/2023 Martha Bernardo Generalized anxiety disorder F41.1 ; Primary insomnia F51.01 ; Attention-deficit hyperactivity disorder, predominantly inattentive type F90.0 and Major depressive disorder, recurrent, moderate F33.1 [facility] [address] [address] 05/03/2023 Daina Ward Primary insomnia F51.01 ; Attention-deficit hyperactivity disorder, predominantly inattentive type F90.0 ; Generalized anxiety disorder F41.1 ; Other intermission coordinator (current) drug therapy Z79.899 and Major depressive disorder, recurrent, mild F33.0 [facility] [address] [address] 05/14/2023 Martha Bernardo Major depressive disorder, recurrent, moderate F33.1 ; Primary insomnia F51.01 ; Attention-deficit hyperactivity disorder, predominantly inattentive type F90.0 and Generalized anxiety disorder F41.1 [facility] [address] [address] 06/03/2023 Daina Ward Major depressive disorder, recurrent, moderate F33.1 ; Other intermission coordinator (current) drug therapy Z79.899 ; Attention-deficit hyperactivity disorder, predominantly inattentive type F90.0 ; Generalized anxiety disorder F41.1 ; Major depressive disorder, recurrent, mild F33.0 and Primary insomnia F51.01 [facility], [facility] [address] [facility] [address] [place] [address] 06/03/2023 Martha Hemann [facility], [facility] [address] [facility] [address] [place] [address] 06/17/2023 Daina Ward Major depressive disorder, recurrent, mild F33.0 ; Primary insomnia F51.01 ; Generalized anxiety disorder F41.1 ; Attention-deficit hyperactivity disorder, predominantly inattentive type F90.0 and Other senior care (current) drug therapy Z79.899 [facility], [facility] [address] [address] 06/18/2023 Martha Hemann Attention-deficit hyperactivity disorder, predominantly inattentive type F90.0 ; Primary insomnia F51.01 ; Major depressive disorder, recurrent, moderate F33.1 and Generalized anxiety disorder F41.1 [facility], [facility] [address] [facility] [address] [place] [address] 06/29/2023 Provider Migration Major depressive disorder, recurrent, mild F33.0 [facility], [facility] [address] [address] 07/07/2023 Martha Hemann Major depressive disorder, recurrent, moderate F33.1 ; Primary insomnia F51.01 ; Generalized anxiety disorder F41.1 and Attention-deficit hyperactivity disorder, predominantly inattentive type F90.0 [facility] [address] [address] 09/01/2023 Martha Hemann Attention-deficit hyperactivity disorder, predominantly inattentive type F90.0 ; Generalized anxiety disorder F41.1 and Major depressive disorder, recurrent, mild F33.0 [facility], [facility] [address] [address] 09/20/2023 Daina Ward [facility], [facility] [address] [facility] [address] [place] [address] 09/22/2023 Martha Hemann Attention-deficit hyperactivity disorder, predominantly inattentive type F90.0 ; Major depressive disorder, recurrent, moderate F33.1 and Generalized anxiety disorder F41.1 [facility] [address] [place] [address] 09/23/2023 Daina Ward Generalized anxiety disorder F41.1 ; MDD (major depressive disorder), recurrent episode, mild F33.0 ; Primary insomnia F51.01 ; Other senior care (current) drug therapy Z79.899 and Attention-deficit hyperactivity disorder, combined type F90.2 [facility] [address] [place] [address] 11/16/2023 Martha Hemann Attention-deficit hyperactivity disorder, predominantly inattentive type F90.0 ; Major depressive disorder, recurrent, moderate F33.1 and Generalized anxiety disorder F41.1 [facility] [address] [place] [address] 11/23/2023 Daina Ward Generalized anxiety disorder F41.1 ; MDD (major depressive disorder), recurrent episode, mild F33.0 ; Primary insomnia F51.01 ; Other intermission coordinator (current) drug therapy Z79.899 and Attention-deficit hyperactivity disorder, combined type F90.2 [facility] [address] [place] [address] 12/14/2023 Martha Hemann Attention-deficit hyperactivity disorder, predominantly inattentive type F90.0 ; Generalized anxiety disorder F41.1 and Major depressive disorder, recurrent, mild F33.0 [facility] [address] [place] [address] 01/18/2024 Martha Hemann Attention-deficit hyperactivity disorder, predominantly inattentive type F90.0 ; Generalized anxiety disorder F41.1 and Major depressive disorder, recurrent, mild F33.0 [facility] [address] [place] [address] 02/14/2024 Martha Hemann Attention-deficit hyperactivity disorder, predominantly inattentive type F90.0 ; Generalized anxiety disorder F41.1 and Major depressive disorder, recurrent, mild F33.0 [facility] [address] [place] [address] 03/07/2024 Martha Hemann Attention-deficit hyperactivity disorder, predominantly inattentive type F90.0 ; Generalized anxiety disorder F41.1 and Major depressive disorder, recurrent, mild F33.0 [facility] [address] [facility] [address] [place] [address] 04/04/2024 Daina Ward Generalized anxiety disorder F41.1 ; MDD (major depressive disorder), recurrent episode, mild F33.0 ; Primary insomnia F51.01 ; Other senior care (current) drug therapy Z79.899 and Attention-deficit hyperactivity disorder, combined type F90.2 [facility] [address] [facility] [address] [place] [address] 05/13/2023 Provider Migration [facility] [address] [address] 06/29/2023 Provider Migration [facility] [address] [address] 07/10/2023 Provider Migration [place] [address] [address] 07/11/2023 Provider Migration [facility] [address] [address] 09/20/2023 Daina Ward [place] [address] [address] 09/21/2023 Daina Ward Assessments Encounter Date Diagnosis (ICD Code) Assessment Notes Treatment Notes Treatment Clinical Notes Section Notes 04/23/2023 Major depressive disorder, recurrent, moderate (ICD-10 - F33.1) 04/23/2023 Generalized anxiety disorder (ICD-10 - F41.1) 04/23/2023 Primary insomnia (ICD-10 - F51.01) 04/23/2023 Attention-defici t hyperactivity disorder, predominantly inattentive type (ICD-10 - F90.0) 05/03/2023 Major depressive disorder, recurrent, mild (ICD-10 - F33.0) 05/03/2023 Generalized anxiety disorder (ICD-10 - F41.1) 05/03/2023 Primary insomnia (ICD-10 - F51.01) 05/03/2023 Attention-defici t hyperactivity disorder, predominantly inattentive type (ICD-10 - F90.0) 05/03/2023 Other intermission coordinator (current) drug therapy (ICD-10 - Z79.899) 05/14/2023 Major depressive disorder, recurrent, moderate (ICD-10 - F33.1) 05/14/2023 Generalized anxiety disorder (ICD-10 - F41.1) 05/14/2023 Primary insomnia (ICD-10 - F51.01) 05/14/2023 Attention-defici t hyperactivity disorder, predominantly inattentive type (ICD-10 - F90.0) 06/03/2023 Major depressive disorder, recurrent, mild (ICD-10 - F33.0) 06/03/2023 Major depressive disorder, recurrent, moderate (ICD-10 - F33.1) 06/03/2023 Generalized anxiety disorder (ICD-10 - F41.1) 06/03/2023 Primary insomnia (ICD-10 - F51.01) 06/03/2023 Attention-defici t hyperactivity disorder, predominantly inattentive type (ICD-10 - F90.0) 06/03/2023 Other intermission coordinator (current) drug therapy (ICD-10 - Z79.899) 06/17/2023 Major depressive disorder, recurrent, mild (ICD-10 - F33.0) 06/17/2023 Generalized anxiety disorder (ICD-10 - F41.1) 06/17/2023 Primary insomnia (ICD-10 - F51.01) 06/17/2023 Attention-defici t hyperactivity disorder, predominantly inattentive type (ICD-10 - F90.0) 06/17/2023 Other senior care (current) drug therapy (ICD-10 - Z79.899) 06/18/2023 Major depressive disorder, recurrent, moderate (ICD-10 - F33.1) 06/18/2023 Generalized anxiety disorder (ICD-10 - F41.1) 06/18/2023 Primary insomnia (ICD-10 - F51.01) 06/18/2023 Attention-defici t hyperactivity disorder, predominantly inattentive type (ICD-10 - F90.0) 06/29/2023 Major depressive disorder, recurrent, mild (ICD-10 - F33.0) 07/07/2023 Major depressive disorder, recurrent, moderate (ICD-10 - F33.1) 07/07/2023 Generalized anxiety disorder (ICD-10 - F41.1) 07/07/2023 Primary insomnia (ICD-10 - F51.01) 07/07/2023 Attention-defici t hyperactivity disorder, predominantly inattentive type (ICD-10 - F90.0) 08/17/2023 Generalized anxiety disorder (ICD-10 - F41.1) 08/17/2023 Attention-defici t hyperactivity disorder, predominantly inattentive type (ICD-10 - F90.0) 09/01/2023 Attention-defici t hyperactivity disorder, predominantly inattentive type (ICD-10 - F90.0) 09/22/2023 Major depressive disorder, recurrent, moderate (ICD-10 - F33.1) 09/22/2023 Attention-defici t hyperactivity disorder, predominantly inattentive type (ICD-10 - F90.0) 09/23/2023 Generalized anxiety disorder (ICD-10 - F41.1) Generalized Anxiety Disorder: Care Instructions material was published, Learning About Generalized Anxiety Disorder material was published, Learning About Anxiety Disorders material was published 1. Mild recurrent major depression - Fetzima 40 mg daily- monitor b/p Wellbutrin XL 150 mg daily in am Zoloft 50 mg daily - discuss and educated on rx - will increase as needed educated on all medications, benefits, side effects [...] therapy and proper use - patient will consider mammogram 02/13 and diagnostic 03/17 educated on importance prevention care PAP, mammogram, labs, PE, ect 2. Generalized anxiety disorder -Sertraline Buspar 15 mg three times a day- anxiety refer to therapy 3. Primary insomnia - decrease caffeine Trazodone 50 mg for sleep 4. Attention deficit hyperactivity disorder, predominantly inattentive type -no rx no cannabis use educatedno early refills on control limit caffeine therapy monitor 5. Long-term drug therapy 09/23/2023 MDD (major depressive disorder), recurrent episode, mild (ICD-10 - F33.0) Preventing Depression From Coming Back: Care Instructions material was published, Depression Treatment: Care Instructions material was published, Seasonal Affective Disorder: Care Instructions material was published 1. Mild recurrent major depression - Fetzima 40 mg daily- monitor b/p Wellbutrin XL 150 mg daily in am Zoloft 50 mg daily - discuss and educated on rx - will increase as needed educated on all medications, benefits, side effects [...] therapy and proper use - patient will consider mammogram 02/13 and diagnostic 03/17 educated on importance prevention care PAP, mammogram, labs, PE, ect 2. Generalized anxiety disorder -Sertraline Buspar 15 mg three times a day- anxiety refer to therapy 3. Primary insomnia - decrease caffeine Trazodone 50 mg for sleep 4. Attention deficit hyperactivity disorder, predominantly inattentive type -no rx no cannabis use educatedno early refills on control limit caffeine therapy monitor 5. Long-term drug therapy 11/16/2023 Major depressive disorder, recurrent, moderate (ICD-10 - F33.1) 11/16/2023 Attention-defici t hyperactivity disorder, predominantly inattentive type (ICD-10 - F90.0) 11/23/2023 Generalized anxiety disorder (ICD-10 - F41.1) Generalized Anxiety Disorder: Care Instructions material was published, Learning About Generalized Anxiety Disorder material was published, Learning About Anxiety Disorders material was published 1. Mild recurrent major depression - Fetzima 40 mg daily- monitor b/p Wellbutrin XL 150 mg daily in am Zoloft 50 mg daily - discuss and educated on rx - will increase as needed educated on all medications, benefits, side effects [...] therapy and proper use - patient will consider mammogram 02/13 and diagnostic 03/17 educated on importance prevention care PAP, mammogram, labs, PE, ect 2. Generalized anxiety disorder -Sertraline Buspar 15 mg three times a day- anxiety refer to therapy 3. Primary insomnia - decrease caffeine Trazodone 50 mg for sleep 4. Attention deficit hyperactivity disorder, predominantly inattentive type -no rx no cannabis use educatedno early refills on control limit caffeine therapy monitor 5. Long-term drug therapy 12/14/2023 Generalized anxiety disorder (ICD-10 - F41.1) 12/14/2023 Attention-defici t hyperactivity disorder, predominantly inattentive type (ICD-10 - F90.0) 01/18/2024 Generalized anxiety disorder (ICD-10 - F41.1) 01/18/2024 Attention-defici t hyperactivity disorder, predominantly inattentive type (ICD-10 - F90.0) 02/14/2024 Generalized anxiety disorder (ICD-10 - F41.1) 02/14/2024 Attention-defici t hyperactivity disorder, predominantly inattentive type (ICD-10 - F90.0) 03/07/2024 Generalized anxiety disorder (ICD-10 - F41.1) 03/07/2024 Attention-defici t hyperactivity disorder, predominantly inattentive type (ICD-10 - F90.0) 04/04/2024 Generalized anxiety disorder (ICD-10 - F41.1) [...] caffeine therapy monitor 5. Long-term drug therapy 03/07/2024 Major depressive disorder, recurrent, mild (ICD-10 - F33.0) 02/14/2024 Major depressive disorder, recurrent, mild (ICD-10 - F33.0) 01/18/2024 Major depressive disorder, recurrent, mild (ICD-10 - F33.0) 11/23/2023 MDD (major depressive disorder), recurrent episode, mild (ICD-10 - F33.0) Preventing Depression From Coming Back: Care Instructions material was published, Depression Treatment: Care Instructions material was published, Seasonal Affective Disorder: Care Instructions material was published 1. Mild recurrent major depression - Fetzima 40 mg daily- monitor b/p Wellbutrin XL 150 mg daily in am Zoloft 50 mg daily - discuss and educated on rx - will increase as needed educated on all medications, benefits, side effects [...] therapy and proper use - patient will consider mammogram 02/13 and diagnostic 03/17 educated on importance prevention care PAP, mammogram, labs, PE, ect 2. Generalized anxiety disorder -Sertraline Buspar 15 mg three times a day- anxiety refer to therapy 3. Primary insomnia - decrease caffeine Trazodone 50 mg for sleep 4. Attention deficit hyperactivity disorder, predominantly inattentive type -no rx no cannabis use educatedno early refills on control limit caffeine therapy monitor 5. Long-term drug therapy 12/14/2023 Major depressive disorder, recurrent, mild (ICD-10 - F33.0) 11/16/2023 Generalized anxiety disorder (ICD-10 - F41.1) 09/01/2023 Generalized anxiety disorder (ICD-10 - F41.1) 09/23/2023 Primary insomnia (ICD-10 - F51.01) Insomnia: Care Instructions material was published, Learning About Sleeping Well material was published 1. Mild recurrent major depression - Fetzima 40 mg daily- monitor b/p Wellbutrin XL 150 mg daily in am Zoloft 50 mg daily - discuss and educated on rx - will increase as needed educated on all medications, benefits, side effects [...] therapy and proper use - patient will consider mammogram 02/13 and diagnostic 03/17 educated on importance prevention care PAP, mammogram, labs, PE, ect 2. Generalized anxiety disorder -Sertraline Buspar 15 mg three times a day- anxiety refer to therapy 3. Primary insomnia - decrease caffeine Trazodone 50 mg for sleep 4. Attention deficit hyperactivity disorder, predominantly inattentive type -no rx no cannabis use educatedno early refills on control limit caffeine therapy monitor 5. Long-term drug therapy 09/22/2023 Generalized anxiety disorder (ICD-10 - F41.1) 08/17/2023 Major depressive disorder, recurrent, mild (ICD-10 - F33.0) 09/01/2023 Major depressive disorder, recurrent, mild (ICD-10 - F33.0) 09/23/2023 Other senior care (current) drug therapy (ICD-10 - Z79.899) Medication Refill: Care Instructions material was published 1. Mild recurrent major depression - Fetzima 40 mg daily- monitor b/p Wellbutrin XL 150 mg daily in am Zoloft 50 mg daily - discuss and educated on rx - will increase as needed educated on all medications, benefits, side effects [...] therapy and proper use - patient will consider mammogram 02/13 and diagnostic 03/17 educated on importance prevention care PAP, mammogram, labs, PE, ect 2. Generalized anxiety disorder -Sertraline Buspar 15 mg three times a day- anxiety refer to therapy 3. Primary insomnia - decrease caffeine Trazodone 50 mg for sleep 4. Attention deficit hyperactivity disorder, predominantly inattentive type -no rx no cannabis use educatedno early refills on control limit caffeine therapy monitor 5. Long-term drug therapy 11/23/2023 Primary insomnia (ICD-10 - F51.01) Insomnia: Care Instructions material was published, Learning About Sleeping Well material was published 1. Mild recurrent major depression - Fetzima 40 mg daily- monitor b/p Wellbutrin XL 150 mg daily in am Zoloft 50 mg daily - discuss and educated on rx - will increase as needed educated on all medications, benefits, side effects [...] therapy and proper use - patient will consider mammogram 02/13 and diagnostic 03/17 educated on importance prevention care PAP, mammogram, labs, PE, ect 2. Generalized anxiety disorder -Sertraline Buspar 15 mg three times a day- anxiety refer to therapy 3. Primary insomnia - decrease caffeine Trazodone 50 mg for sleep 4. Attention deficit hyperactivity disorder, predominantly inattentive type -no rx no cannabis use educatedno early refills on control limit caffeine therapy [...] caffeine therapy monitor 5. Long-term drug therapy 11/23/2023 Other intermission coordinator (current) drug therapy (ICD-10 - Z79.899) Medication Refill: Care Instructions material was published 1. Mild recurrent major depression - Fetzima 40 mg daily- monitor b/p Wellbutrin XL 150 mg daily in am Zoloft 50 mg daily - discuss and educated on rx - will increase as needed educated on all medications, benefits, side effects [...] therapy and proper use - patient will consider mammogram 02/13 and diagnostic 03/17 educated on importance prevention care PAP, mammogram, labs, PE, ect 2. Generalized anxiety disorder -Sertraline Buspar 15 mg three times a day- anxiety refer to therapy 3. Primary insomnia - decrease caffeine Trazodone 50 mg for sleep 4. Attention deficit hyperactivity disorder, predominantly inattentive type -no rx no cannabis use educatedno early refills on control limit caffeine therapy monitor 5. Long-term drug therapy 04/04/2024 Other intermission coordinator (current) drug therapy (ICD-10 - Z79.899) Medication [...] caffeine therapy monitor 5. Long-term drug therapy 09/23/2023 Attention-defici t hyperactivity disorder, combined type (ICD-10 - F90.2) Attention Deficit Hyperactivity Disorder (ADHD) in Adults: Care Instructions material was published 1. Mild recurrent major depression - Fetzima 40 mg daily- monitor b/p Wellbutrin XL 150 mg daily in am Zoloft 50 mg daily - discuss and educated on rx - will increase as needed educated on all medications, benefits, side effects [...] therapy and proper use - patient will consider mammogram 02/13 and diagnostic 03/17 educated on importance prevention care PAP, mammogram, labs, PE, ect 2. Generalized anxiety disorder -Sertraline Buspar 15 mg three times a day- anxiety refer to therapy 3. Primary insomnia - decrease caffeine Trazodone 50 mg for sleep 4. Attention deficit hyperactivity disorder, predominantly inattentive type -no rx no cannabis use educatedno early refills on control limit caffeine therapy monitor 5. Long-term drug therapy 11/23/2023 Attention-defici t hyperactivity disorder, combined type (ICD-10 - F90.2) Attention Deficit Hyperactivity Disorder (ADHD) in Adults: Care Instructions material was published 1. Mild recurrent major depression - Fetzima 40 mg daily- monitor b/p Wellbutrin XL 150 mg daily in am Zoloft 50 mg daily - discuss and educated on rx - will increase as needed educated on all medications, benefits, side effects [...] therapy and proper use - patient will consider mammogram 02/13 and diagnostic 03/17 educated on importance prevention care PAP, mammogram, labs, PE, ect 2. Generalized anxiety disorder -Sertraline Buspar 15 mg three times a day- anxiety refer to therapy 3. Primary insomnia - decrease caffeine Trazodone 50 mg for sleep 4. Attention deficit hyperactivity disorder, predominantly inattentive type -no rx no cannabis use educatedno early refills on control limit caffeine therapy [...] caffeine therapy monitor 5. Long-term drug therapy 09/23/2023 Other Bupropion Extended Release Oral Tablet (BUPROPION HCL EXTENDED-RELEASE (ANTIDEPRESSANT) - ORAL) material was published, Sertraline Oral Tablet (SERTRALINE - ORAL) material was published 1. Mild recurrent major depression - Fetzima 40 mg daily- monitor b/p Wellbutrin XL 150 mg daily in am Zoloft 50 mg daily - discuss and educated on rx - will increase as needed educated on all medications, benefits, side effects [...] therapy and proper use - patient will consider mammogram 02/13 and diagnostic 03/17 educated on importance prevention care PAP, mammogram, labs, PE, ect 2. Generalized anxiety disorder -Sertraline Buspar 15 mg three times a day- anxiety refer to therapy 3. Primary insomnia - decrease caffeine Trazodone 50 mg for sleep 4. Attention deficit hyperactivity disorder, predominantly inattentive type -no rx no cannabis use educatedno early refills on control limit caffeine therapy monitor 5. Long-term drug therapy Plan Of Treatment Next Appt Details Provider Name:Martha Bernardo, 04/18/2024 08:00:00 AM, [address], [address], [place], [address], Provider Name:Daina Ward , 05/02/2024 08:15:00 AM, [address], [address], [place], [address], Insurance Providers Payer Name Payer Address Payer Phone Subscriber Number Group Number Insured Name Patient Relationship to Insured Coverage Start Date Coverage End Date [facility] [address] [place] [phone] [id number] LEEANN MARIA Self - patient is the insured Medical (General) History Medical History History ICD Code Problems: Abnormal grief reaction Attention deficit hyperactivity disorder Attention deficit hyperactivity disorder , predominantly inattentive type Generalized anxiety disorder Long-term drug therapy Mild recurrent major depression Moderate recurrent major depression Primary insomnia , Surgical History Surgery Date(Month/Year) Removal of gallbladder (39721) Cholecystectomy ([id number]) Ligation of bilateral fallopian tubes ([id number]) Removal of gallbladder (76238) 9
--- OUTSIDE RECORDS SUMMARY | 2024-04-11 11:21 | XMS_ITS | Patient Health Record ---
Author Organization [facility] Address [address] [place] [phone] Care Team Providers Care Customer Marketing Intern Name Role Phone Maldonado Robles MD Primary Care Provider UnavailPrincess Tee Unavailable [phone] ColtenCruz Unavailable [phone] [employer], Provider Unavailable Unavailab le Allergies Allergen (clinical drug ingredient) Drug/Non Drug Allergy documented on EMR Reaction Allergy Type Onset Date Status dexamethasone dexAMETHasone skin changes Drug Allergy Active Results Component Value Reference Range Notes Spirometry Reviewed date:03/16/2024 01:30:24 PM Interpretation:Abnormal Performing Lab: Notes/Report: Abnormal SpiroPreBronchodilator_FVC 3.7 SpiroPostBronchodilator_FEF25_75 0 SpiroPreBronchodilator_FEF25_75 1.06 SpiroPreBronchodilator_FEV1 2.18 SpiroPrecentPredictionPost_FEF25_75 0 SpiroPrecentPredictionPost_FEV1 0 SpiroPrecentPredictionPost_FEV1_OVER_FVC 0 SpiroPrecentPredictionPost_FVC 0 SpiroPrecentPredictionPre_FEF25_75 33.2 SpiroPrecentPredictionPre_FEV1 72.4 SpiroPrecentPredictionPre_FEV1_OVER_FVC 72.4 SpiroPrecentPredictionPre_FVC 100.8 SpiroPredicted_FEF25_75 3.19 SpiroPreBronchodilator_FEV1_OVER_FVC 58.92 SpiroPreBronchodilator_PEF 5.63 SpiroPostBronchodilator_FVC 0 SpiroPostBronchodilator_FEV1 0 SpiroPostBronchodilator_FEV1_OVER_FVC 0 SpiroPostBronchodilator_PEF 0 SpiroPredicted_FVC 3.67 SpiroPredicted_FEV1 3.01 SpiroPredicted_FEV1_OVER_FVC 81.38 SpiroPredicted_PEF 6.35 Reason For Referral No Information Medications Medication SIG (Take, Route, Frequency, Duration) Notes Start Date End Date Status AEROCHAMBER MDI SPACER - MOUTHPIECE (ADULT) N/A As directed PO Per asthma action plan Active ALBUTEROL-IPRATROPI UM 2.5 mg-0.5 mg/3 mL 3 mL by nebulizer 4 times a day Active FAMOTIDINE 40 mg 1 tab(s) orally 1 hour prior to allergy shots for 30 day(s) Active AZELASTINE HYDROCHLORIDE NASAL 137 mcg/inh 2 spray(s) intranasally twice a day as needed for 30 day(s) Active FLONASE 50 mcg/inh 2 spray(s) intranasally once a day Active CETIRIZINE HYDROCHLORIDE 10 mg 1 tab(s) orally once a day Active TEZSPIRE PRE-FILLED SYRINGE ekko 210 mg/1.91 mL as directed subcutaneously every 4 weeks Active PHENTERMINE 37.5 mg 1 cap(s) orally once a day 08/07/2021 Not-Taking SIT (TRADITIONAL) variable per schedule SC per schedule Active Trelegy Ellipta 200 mcg-62.5 mcg-25 mcg/inh INHALE 1 PUFF BY MOUTH ONCE DAILY for 30 Active PREDNISONE 20 mg 4 tab(s) orally once a day for 5 day(s) 05/05/2021 Not-Taking XEMBIFY klhw 20% 12 g subcutaneously weekly Active AZELASTINE HYDROCHLORIDE NASAL 137 mcg/inh 2 spray(s) intranasally twice a day as needed for 90 Not-Taking predniSONE 20 MG 3 tab(s) orally once a day, call office prior to starting Not-Taking PNEUMOVAX 23 - 0.5 mL intramuscularly once for 1 dose(s) Not-Taking SINGULAIR 10 mg 1 tab(s) orally once a day for 90 days Not-Taking LISINOPRIL 20 mg 1 tab(s) orally once a day Not-Taking B-12 1000 mcg 1 tab(s) orally once a day for 30 day(s) Not-Taking XOLAIR 375 mg as directed subcutaneously every 2 weeks Not-Taking FAMOTIDINE 40 mg 1 tab(s) orally 1 hour prior to allergy shots for 30 day(s) Not-Taking RYBELSUS 14 mg 1 tab(s) orally once a day for 30 day(s) Not-Taking Triamcinolone Acetonide 0.1 % 1 herbert applied topically 3 times a day as needed for 14 days Active Theophylline 600 MG/24 HOURS 1 TAB(S) ORALLY ONCE A DAY *Please review and pick correct strength-formula tion from Emida options. If intended option is not shown, discontinue and re-order from Quick Search* Active Auvi-Q 0.3 MG/0.3ML as directed intramuscularly once for 30 day(s) Active Famotidine 40 MG 1 tab(s) orally 1 hour prior to allergy shots for 30 day(s) Active Azelastine HCl 137 MCG/SPRAY 2 spray(s) intranasally twice a day as needed for 30 day(s) Active Flonase Allergy Relief 50 MCG/ACT 2 spray(s) intranasally once a day Active Cetirizine HCl 10 MG 1 tab(s) orally once a day Active Farxiga 10 MG 1 tab(s) orally once a day for 30 day(s) Active ASMANEX TWISTHALER 120 DOSE 220 MCG/INH 1 PUFF(S) INHALED ONCE A DAY (IN THE EVENING) for 30 DAY(S) *Please review for potential replacement for e-prescription and drug interaction check* 05/01/2021 Not-Taking Vitamin D3 *Please review and pick correct strength-formula tion from Emida options. If intended option is not shown, discontinue and re-order from Quick Search* Active Azelastine HCl 137 MCG/SPRAY 2 spray(s) intranasally twice a day as needed for 90 Not-Taking Pneumovax 23 - 0.5 ML INTRAMUSCULARLY ONCE for 1 DOSE(S) *Please review and pick correct strength-formula tion from Emida options. If intended option is not shown, discontinue and re-order from Quick Search* Not-Taking BUSPAR 10mg twice a day *Please review for potential replacement for e-prescription and drug interaction check* Active predniSONE 20 MG 4 tab(s) orally once a day for 5 day(s) 05/05/2021 Not-Taking B-12 1000 MCG 1 tab(s) orally once a day for 30 day(s) Not-Taking Xolair 375 MG DIRECTED SUBCUTANEOUSLY EVERY 2 WEEKS *Please review and pick correct strength-formula tion from Emida options. If intended option is not shown, discontinue and re-order from Quick Search* Not-Taking Famotidine 40 MG 1 tab(s) orally 1 hour prior to allergy shots for 30 day(s) Not-Taking Rybelsus 14 MG 1 tab(s) orally once a day for 30 day(s) Not-Taking Phentermine HCl 37.5 MG 1 cap(s) orally once a day 08/07/2021 Not-Taking buPROPion HCl ER (SR) 200 MG 1 tab(s) orally 2 times a day for 30 day(s) once a day/not sure of dose Active Fetzima 40 MG 1 cap(s) orally once a day for 30 days Active TRELEGY ELLIPTA 200 mcg-62.5 mcg-25 mcg/inh 1 puff(s) inhaled once a day for 30 day(s) Active Lisinopril 20 MG 1 tab(s) orally once a day Active Levothyroxine Sodium 125 MCG 1 tab(s) orally once a day for 30 day(s) Active Singulair 10 MG 1 tab(s) orally once a day for 90 days Active Xembify KLHW 20% 12 G SUBCUTANEOUSLY WEEKLY *Please review and pick correct strength-formula tion from Emida options. If intended option is not shown, discontinue and re-order from Quick Search* Active TRELEGY ELLIPTA 200 mcg-62.5 mcg-25 mcg/inh INHALE 1 PUFF BY MOUTH ONCE DAILY for 30 Not-Taking VITAMIN D3 Not-Takin g TRELEGY ELLIPTA 200 mcg-62.5 mcg-25 mcg/inh 1 puff(s) inhaled once a day for 30 day(s) Not-Taking SINGULAIR 10 mg 1 tab(s) orally once a day for 90 days Active TRIAMCINOLONE ACETONIDE TOPICAL 0.1% 1 herbert applied topically 3 times a day as needed for 14 days Active Trelegy Ellipta 200 mcg-62.5 mcg-25 mcg/inh 1 puff(s) inhaled once a day for 30 day(s) Active AUVI -Q 0.3 mg as directed intramuscularly once for 30 day(s) Active THEOPHYLLINE 600 mg/24 hours 1 tab(s) orally once a day Active FETZIMA 40 mg 1 cap(s) orally once a day for 30 days Not-Taking PREDNISONE 20 mg 3 tab(s) orally once a day, call office prior to starting Active FARXIGA 10 mg 1 tab(s) orally once a day for 30 day(s) Not-Taking LEVOTHYROXINE 125 mcg (0.125 mg) 1 tab(s) orally once a day for 30 day(s) Not-Taking PROAIR HFA 90 mcg/inh 2 puff(s) inhaled Q4-6 hours, PRN and per the asthma action plan for 90 days Active BUPROPION 200 mg/12 hours 1 tab(s) orally 2 times a day for 30 day(s) once a day/not sure of dose Not-Taking Immunizations Vaccine Route Administration Date Status Comme nts Covid 19 (Pfizer) Unknown 05/05/2020 Administered Covid 19 (Pfizer) Unknown 05/27/2020 Administered Covid 19 (Pfizer) Unknown 12/17/2020 Administered DTaP < 7 y/o Unknown 08/24/1980 Administered Portal Information Flucelvax Unknown 02/22/2019 Administered Fluzone, quadrivalent, preservative free Unknown 12/12/2020 Administered Influenza Unknown 03/06/2018 Administered Portal Information NOC Flucelevax Quadrivalent Unknown 12/25/2019 Administered NOC Flucelevax Quadrivalent Unknown 12/25/2019 Administered NOC Influenza-Fluzone Unknown 01/12/2019 Refused NOC Pneumovax 23 Unknown 09/12/2019 Administered NOC Pneumovax 23 IM Intramuscular 08/07/2020 Administered NOC Prevnar 20 Unknown 03/26/2022 Administered NOC Tdap Unknown 11/27/2008 Administered Portal Information Pedvax Hib IM Intramuscular 02/09/2019 Administered Pneumovax 23 IM Intramuscular 02/09/2019 Administered Pneumovax 23 Unknown 01/31/2020 Administered Social History Tobacco Use: Social History Observation Description Date Details (start date - stop date) Former Smoker NA - NA Smoking Smart Form: Question Answer Notes Are you a: former smoker How long it has been since you last smoked? > 10 years Tobacco Control (Standard) Question Answer Notes Tobacco use: Former smoker How long has it been since you last smoked? 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) Active confirmed Problem Hypothyroidism (02153719) Hypothyroidism, unspecified (E03.9) Active confirmed Problem Type II diabetes mellitus without complication (344333908) Type 2 diabetes mellitus without complications (E11.9) Active confirmed Problem Generalized anxiety disorder (12306112) Generalized anxiety disorder (F41.1) Active confirmed Problem Chronic allergic conjunctivitis (97685619) Other chronic allergic conjunctivitis (H10.45) Active confirmed Problem Allergic rhinitis caused by pollen (disorder) (79581670) Allergic rhinitis due to pollen (J30.1) Active confirmed Problem Allergic rhinitis (22261733) Other allergic rhinitis (J30.89) Active confirmed Problem Uncomplicated severe persistent asthma (173772216) Severe persistent asthma, uncomplicated (J45.50) Active confirmed Problem Allergic rhinitis caused by pollen (disorder) (90500604) Allergic rhinitis due to pollen (J30.1) Active confirmed Problem Allergic rhinitis caused by animal hair and dander (912848751112744) Allergic rhinitis due to animal (cat) (dog) hair and dander (J30.81) Active confirmed Problem Allergic rhinitis (11876729) Other allergic rhinitis (J30.89) Active confirmed Problem Uncomplicated severe persistent asthma (571759227) Severe persistent asthma, uncomplicated (J45.50) Active confirmed Problem Dysphagia (27265596) Dysphagia, unspecified (R13.10) Active confirmed Problem Chronic sinusitis (37292402) Chronic sinusitis, unspecified (J32.9) Active confirmed Problem Chronic obstructive pulmonary disease (81431067) Chronic obstructive pulmonary disease, unspecified (J44.9) Active confirmed Problem History of pneumonia (269841382) Personal history of pneumonia (recurrent) (Z87.01) Active confirmed Vital Signs Respiratory Rate 17 /min 03/16/2024 Oximetry 99 % 03/23/2024 Blood pressure diastolic 83 mm Hg 03/23/2024 Height 66 in 03/23/2024 Blood pressure systolic 135 mm Hg 03/23/2024 Weight 154.8 lbs 03/16/2024 BMI 24.98 kg/m2 03/16/2024 Encounters Encounter Location Date Provider Diagnosis [facility] [address] [place] [address] 08/07/2023 Provider Miguel Severe persistent asthma, uncomplicated J45.[address] [address] 04/13/2023 Cruz Abel Allergic rhinitis du e to pollen J30.1 ; Other allergic rhinitis J30.89 ; Allergic rhinitis due to animal (cat) (dog) hair and dander J30.81 and Other chronic allergic conjunctivitis H10.[address] [address] 04/20/2023 Cruz Abel Allergic rhinitis du e to pollen J30.1 ; Other allergic rhinitis J30.89 ; Allergic rhinitis due to animal (cat) (dog) hair and dander J30.81 and Other chronic allergic conjunctivitis H10.[address] [address] 04/29/2023 Cruz Abel Severe persistent as thma, uncomplicated J45.[address] [address] 05/27/2023 Cruz Abel Severe persistent as thma, uncomplicated J45.[address] [address] 05/31/2023 Cruz Abel Allergic rhinitis du e to pollen J30.1 ; Other allergic rhinitis J30.89 ; Allergic rhinitis due to animal (cat) (dog) hair and dander J30.81 and Other chronic allergic conjunctivitis H10.[address] [address] 06/24/2023 Cruz Abel Severe persistent as thma, uncomplicated J45.[address] [address] 06/30/2023 Cruz Abel Allergic rhinitis du e to pollen J30.1 ; Other allergic rhinitis J30.89 ; Allergic rhinitis due to animal (cat) (dog) hair and dander J30.81 and Other chronic allergic conjunctivitis H10.[address] [facility] [address] [place] [address] [facility] [address] [address] 07/29/2023 Princess Young Severe persistent as thma, uncomplicated J45.50 ; 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 D80.6 ; Allergic rhinitis due to pollen J30.1 ; Allergic rhinitis due to animal (cat) (dog) hair and dander J30.81 ; Other allergic rhinitis J30.89 ; Other chronic allergic conjunctivitis H10.45 ; Chronic sinusitis, unspecified J32.9 ; Personal history of pneumonia (recurrent) Z87.01 ; Localized skin eruption due to drugs and medicaments taken internally L27.1 ; Encounter for therapeutic drug level monitoring Z51.81 ; Vitamin D deficiency, unspecified E55.9 and Dysphagia, unspecified R13.[address] [facility] [address] [place] [phone] 08/03/2023 Cruz Abel Allergic rhinitis du e to pollen J30.1 ; Other allergic rhinitis J30.89 ; Allergic rhinitis due to animal (cat) (dog) hair and dander J30.81 and Other chronic allergic conjunctivitis H10.45 [facility] [address] [place] [phone] 09/02/2023 Cruz Abel Severe persistent as thma, uncomplicated J45.50 [facility] [address] [place] [phone] 09/08/2023 Cruz Abel Allergic rhinitis du e to pollen J30.1 ; Other allergic rhinitis J30.89 ; Allergic rhinitis due to animal (cat) (dog) hair and dander J30.81 and Other chronic allergic conjunctivitis H10.45 [facility] [address] [place] [address] 10/06/2023 Cruz Abel Allergic rhinitis du e to pollen J30.1 ; Other allergic rhinitis J30.89 ; Allergic rhinitis due to animal (cat) (dog) hair and dander J30.81 and Other chronic allergic conjunctivitis H10.45 [facility] [address] [place] [phone] 10/28/2023 Princess Crawford Severe persistent as thma, uncomplicated J45.50 ; 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 D80.6 ; Allergic rhinitis due to pollen J30.1 ; Allergic rhinitis due to animal (cat) (dog) hair and dander J30.81 ; Other allergic rhinitis J30.89 ; Other chronic allergic conjunctivitis H10.45 ; Chronic sinusitis, unspecified J32.9 ; Personal history of pneumonia (recurrent) Z87.01 ; Localized skin eruption due to drugs and medicaments taken internally L27.1 ; Encounter for therapeutic drug level monitoring Z51.81 ; Vitamin D deficiency, unspecified E55.9 and Dysphagia, unspecified R13.[address] [facility] [address] [place] [address] [facility] [address] [address] 11/09/2023 Cruz Abel Allergic rhinitis du e to pollen J30.1 ; Other allergic rhinitis J30.89 ; Allergic rhinitis due to animal (cat) (dog) hair and dander J30.81 and Other chronic allergic conjunctivitis H10.[address] [facility] [address] [place] [address] [facility] [address] [address] 11/25/2023 Cruz Abel Severe persistent as thma, uncomplicated J45.50 [facility] [address] [place] [address] [facility] [address] [address] 12/07/2023 Cruz Abel Allergic rhinitis du e to pollen J30.1 ; Other allergic rhinitis J30.89 ; Allergic rhinitis due to animal (cat) (dog) hair and dander J30.81 and Other chronic allergic conjunctivitis H10.45 [facility] [address] [place] [address] [facility] [address] [address] 12/23/2023 Cruz Abel Severe persistent as thma, uncomplicated J45.[address] [facility] [address] [address] 01/04/2024 Cruz Abel Allergic rhinitis du e to pollen J30.1 ; Other allergic rhinitis J30.89 ; Allergic rhinitis due to animal (cat) (dog) hair and dander J30.81 and Other chronic allergic conjunctivitis H10.45 [facility] [address] [place] [address] [facility] [address] [address] 01/24/2024 Cruz Abel Severe persistent as thma, uncomplicated J45.[address] [address] 02/01/2024 Cruz Abel Allergic rhinitis du e to pollen J30.1 ; Other allergic rhinitis J30.89 ; Allergic rhinitis due to animal (cat) (dog) hair and dander J30.81 and Other chronic allergic conjunctivitis H10.[address] [address] 02/21/2024 Cruz Abel Severe persistent as thma, uncomplicated J45.[address] [address] 03/16/2024 Princess Crawford Severe persistent as thma, uncomplicated J45.50 ; 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 D80.6 ; Allergic rhinitis due to pollen J30.1 ; Allergic rhinitis due to animal (cat) (dog) hair and dander J30.81 ; Other allergic rhinitis J30.89 ; Other chronic allergic conjunctivitis H10.45 ; Chronic sinusitis, unspecified J32.9 ; Personal history of pneumonia (recurrent) Z87.01 ; Localized skin eruption due to drugs and medicaments taken internally L27.1 ; Encounter for therapeutic drug level monitoring Z51.81 ; Vitamin D deficiency, unspecified E55.9 and Dysphagia, unspecified R13.[address] [address] 03/23/2024 Cruz Abel Severe persistent as thma, uncomplicated J45.[address] [address] 03/16/2024 Princess Crawford [facility] [place] [address] [facility] [place] [address] 03/16/2024 Princess Crawford [facility] [address] [place] [address] 08/02/2023 Princess Crawford [facility] [place] [address] [facility] [place] [address] 01/27/2024 Princess Crwaford [facility] [place] [address] [facility] [place] [address] 03/06/2024 Princess Crawford [facility] [address] [place] [address] [facility]09[facility]20[facility] [address] [place] [address] 03/27/2024 Princess Crawford Assessments Encounter Date Diagnosis (ICD Code) Assessment Notes Treatment Notes Treatment Clinical Notes Section Notes 04/13/2023 Allergic rhinitis du e to pollen (ICD-10 - J30.1) 04/20/2023 Allergic rhinitis du e to pollen (ICD-10 - J30.1) 04/29/2023 Severe persistent as thma, uncomplicated (ICD-10 - J45.50) 05/27/2023 Severe persistent as thma, uncomplicated (ICD-10 - J45.50) 05/31/2023 Allergic rhinitis du e to pollen (ICD-10 - J30.1) 06/24/2023 Severe persistent as thma, uncomplicated (ICD-10 - J45.50) 06/30/2023 Allergic rhinitis du e to pollen (ICD-10 - J30.1) 07/29/2023 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 pneumo protection, no response to Pneumovax x3 or Prevnar 13, c/w SADNI. Vaccine history as follows: Pneumovax -23: 02/09/19, 09/12/19, 08/07/20 Prevnar-13: 01/31/20 Prevnar-20: 04/02/22 - Last titer showed 5 of 23 protected - As Manuela has a long history of recurrent sinopulmonary infections, with prior hospitalization for PNA recommend additional treatment for SADNI including prophylactic antibiotics vs IgG. Insurance approved Xembify which she started 06/23/22.Previously holding since 11/2022 due to insurance appeal. She has been sick each month. She needs life-long therapy and holding dosing is NOT standard of care. Since resuming in [facility] she has not been sick. Continue Xembify weekly. - IgG trough level checked this week and was 1138. Plan to recheck in the next 1-2 month - Follow-up as above 07/29/2023 Severe persistent as thma, uncomplicated (ICD-10 - J45.50) Manuela returns today doing well on TEZSPIRE the last few months. Previously on Xolair still resulting in steroids a few times a year. - Continue to follows with Dr. 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 Malignancy and cardiovascular risks previously discussed. - IgE >1800, She has some labs suggestive of ABPA but does not meet criteria. I do not see significant eosinophilia, seen typically. 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 pneumo protection, no response to Pneumovax x3 or Prevnar 13, c/w SADNI. Vaccine history as follows: Pneumovax -23: 02/09/19, 09/12/19, 08/07/20 Prevnar-13: 01/31/20 Prevnar-20: 04/02/22 - Last titer showed 5 of 23 protected - As Manuela has a long history of recurrent sinopulmonary infections, with prior hospitalization for PNA recommend additional treatment for SADNI including prophylactic antibiotics vs IgG. Insurance approved Xembify which she started 06/23/22.Previously holding since 11/2022 due to insurance appeal. She has been sick each month. She needs life-long therapy and holding dosing is NOT standard of care. Since resuming in [facility] she has not been sick. Continue Xembify weekly. - IgG trough level checked this week and was 1138. Plan to recheck in the next 1-2 month - Follow-up as above 10/28/2023 Severe persistent as thma, uncomplicated (ICD-10 - J45.50) Manuela returns today doing well on TEZSPIRE the last few months. Previously on Xolair still resulting in steroids a few times a year. Unfortunatley behind on dosing with increased asthma symptoms. She forgot to schedule her September dosing. - Continue to follows with Dr. 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 Malignancy and cardiovascular risks previously discussed. - IgE >1800, She has some labs suggestive of ABPA but does not meet criteria. I do not see significant eosinophilia, seen typically. Also her prior chest CT have been unremarkable - Return in 4 weeks or dosing 11/09/2023 Allergic rhinitis du e to pollen (ICD-10 - J30.1) 11/25/2023 Severe persistent as thma, uncomplicated (ICD-10 - J45.50) 12/07/2023 Allergic rhinitis du e to pollen (ICD-10 - J30.1) 12/23/2023 Severe persistent as thma, uncomplicated (ICD-10 - J45.50) 01/04/2024 Allergic rhinitis du e to pollen (ICD-10 - J30.1) 01/24/2024 Severe persistent as thma, uncomplicated (ICD-10 - J45.50) 02/01/2024 Allergic rhinitis du e to pollen (ICD-10 - J30.1) 02/21/2024 Severe persistent as thma, uncomplicated (ICD-10 - J45.50) 03/16/2024 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 pneumo protection, no response to Pneumovax x3 or Prevnar 13, c/w SADNI. Vaccine history as follows: Pneumovax -23: 02/09/19, 09/12/19, 08/07/20 Prevnar-13: 01/31/20 Prevnar-20: 04/02/22 - Last titer showed 5 of 23 protected - As Manuela has a long history of recurrent sinopulmonary infections, with prior hospitalization for PNA recommend additional treatment for SADNI including prophylactic antibiotics vs IgG. Insurance approved Xembify which she started 06/23/22.Previously holding since 11/2022 due to insurance appeal. She has been sick each month. She needs life-long therapy and holding dosing is NOT standard of care. Since resuming in [facility] she has not been sick. Continue Xembify weekly. - IgG trough level checked this week and was 1138. Plan to recheck shortly - Follow-up as above 03/16/2024 Severe persistent as thma, uncomplicated (ICD-10 - J45.50) Manuela returns today doing well on TEZSPIRE the last few months. Previously on Xolair still resulting in steroids a few times a year. Doing well the last year! - Continue to follows with Dr. Alves of Pulmonary.- spirometry today still with airway obstruction. comparable to last check. 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 Malignancy and cardiovascular risks previously discussed. - IgE >1800, She has some labs suggestive of ABPA but does not meet criteria. I do not see significant eosinophilia, seen typically. 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 - Doing very well thus far on medications and SCIT, continues on triple therapy - Continue avoidance measures and medications as above. - Most recent FEV1 is > 1 L. - Continue SCIT with triple premedication (initiated 08/24/2019). Tolerating thus far, but does c/o some large local reactions. Avoid on days with lower airway symptoms/CALOS use. Has triamcinolone topical to be applied as need for irritation after SCIT. - AIE on hand at all times for Xolair 01/04/2024 Other allergic rhini tis (ICD-10 - J30.89) 02/01/2024 Other allergic rhini tis (ICD-10 - J30.89) 11/09/2023 Other allergic rhini tis (ICD-10 - J30.89) 12/07/2023 Other allergic rhini tis (ICD-10 - J30.89) 08/03/2023 Other allergic rhini tis (ICD-10 - J30.89) 10/28/2023 Allergic rhinitis du e to pollen (ICD-10 - J30.1) Manuela clearly suffers from atopic disease based upon our recent skin testing. - Doing very well thus far on medications and SCIT, continues on triple therapy - Continue avoidance measures and medications as above. - Most recent FEV1 is > 1 L. - Continue SCIT with triple premedication (initiated 08/24/2019). Tolerating thus far, but does c/o some large local reactions. Avoid on days with lower airway symptoms/CALOS use. Has triamcinolone topical to be applied as need for irritation after SCIT. - AIE on hand at all times for Xolair 10/06/2023 Other allergic rhini tis (ICD-10 - J30.89) 09/08/2023 Other allergic rhini tis (ICD-10 - J30.89) 05/31/2023 Other allergic rhini tis (ICD-10 - J30.89) 07/29/2023 Allergic rhinitis du e to pollen (ICD-10 - J30.1) Manuela clearly suffers from atopic disease based upon our recent skin testing. - Doing very well thus far on medications and SCIT, continues on triple therapy - Continue avoidance measures and medications as above. - Most recent FEV1 is > 1 L. - Continue SCIT with triple premedication (initiated 08/24/2019). Tolerating thus far, but does c/o some large local reactions. Avoid on days with lower airway symptoms/CALOS use. Has triamcinolone topical to be applied as need for irritation after SCIT. - AIE on hand at all times for Xolair 06/30/2023 Other allergic rhini tis (ICD-10 - J30.89) 04/20/2023 Other allergic rhini tis (ICD-10 - J30.89) 04/13/2023 Other allergic rhini tis (ICD-10 - J30.89) 04/13/2023 Allergic rhinitis du e to animal (cat) (dog) hair and dander (ICD-10 - J30.81) 04/20/2023 Allergic rhinitis du e to animal (cat) (dog) hair and dander (ICD-10 - J30.81) 06/30/2023 Allergic rhinitis du e to animal (cat) (dog) hair and dander (ICD-10 - J30.81) 05/31/2023 Allergic rhinitis du e to animal (cat) (dog) hair and dander (ICD-10 - J30.81) 07/29/2023 Allergic rhinitis du e to animal (cat) (dog) hair and dander (ICD-10 - J30.81) Follow allergen avoidance, meds and continue SCIT as an adjunctive treatment to current regimen 08/03/2023 Allergic rhinitis du e to animal (cat) (dog) hair and dander (ICD-10 - J30.81) 09/08/2023 Allergic rhinitis du e to animal (cat) (dog) hair and dander (ICD-10 - J30.81) 10/06/2023 Allergic rhinitis du e to animal (cat) (dog) hair and dander (ICD-10 - J30.81) 10/28/2023 Allergic rhinitis du e to animal (cat) (dog) hair and dander (ICD-10 - J30.81) Follow allergen avoidance, meds and continue SCIT as an adjunctive treatment to current regimen 11/09/2023 Allergic rhinitis du e to animal (cat) (dog) hair and dander (ICD-10 - J30.81) 12/07/2023 Allergic rhinitis du e to animal (cat) (dog) hair and dander (ICD-10 - J30.81) 01/04/2024 Allergic rhinitis du e to animal (cat) (dog) hair and dander (ICD-10 - J30.81) 02/01/2024 Allergic rhinitis du e to animal (cat) (dog) hair and dander (ICD-10 - J30.81) 03/16/2024 Allergic rhinitis du e to animal (cat) (dog) hair and dander (ICD-10 - J30.81) Follow allergen avoidance, meds and continue SCIT as an adjunctive treatment to current regimen 03/16/2024 Other allergic rhini tis (ICD-10 - J30.89) Follow allergen avoidance, meds and continue SCIT as an adjunctive treatment to current regimen 02/01/2024 Other chronic allerg ic conjunctivitis (ICD-10 - H10.45) 01/04/2024 Other chronic allerg ic conjunctivitis (ICD-10 - H10.45) 12/07/2023 Other chronic allerg ic conjunctivitis (ICD-10 - H10.45) 11/09/2023 Other chronic allerg ic conjunctivitis (ICD-10 - H10.45) 10/28/2023 Other allergic rhini tis (ICD-10 - J30.89) Follow allergen avoidance, meds and continue SCIT as an adjunctive treatment to current regimen 10/06/2023 Other chronic allerg ic conjunctivitis (ICD-10 - H10.45) 09/08/2023 Other chronic allerg ic conjunctivitis (ICD-10 - H10.45) 08/03/2023 Other chronic allerg ic conjunctivitis (ICD-10 - H10.45) 07/29/2023 Other allergic rhini tis (ICD-10 - J30.89) Follow allergen avoidance, meds and continue SCIT as an adjunctive treatment to current regimen 06/30/2023 Other chronic allerg ic conjunctivitis (ICD-10 - H10.45) 05/31/2023 Other chronic allerg ic conjunctivitis (ICD-10 - H10.45) 04/20/2023 Other chronic allerg ic conjunctivitis (ICD-10 - H10.45) 04/13/2023 Other chronic allerg ic conjunctivitis (ICD-10 - H10.45) 07/29/2023 Other chronic allerg ic conjunctivitis (ICD-10 - H10.45) Given ocular signs and symptoms I encouraged allergy avoidance measures and meds as above. If symptoms persist, consider adding additional medications including intraocular antihistamine/mas t cell stabilizer, PRN and continue SCIT as an adjunctive measure 10/28/2023 Other chronic allerg ic conjunctivitis (ICD-10 - H10.45) Given ocular signs and symptoms I encouraged allergy avoidance measures and meds as above. If symptoms persist, consider adding additional medications including intraocular antihistamine/mas t cell stabilizer, PRN and continue SCIT as an adjunctive measure 03/16/2024 Other chronic allerg ic conjunctivitis (ICD-10 - H10.45) Given ocular signs and symptoms I encouraged allergy avoidance measures and meds as above. If symptoms persist, consider adding additional medications including intraocular antihistamine/mas t cell stabilizer, PRN and continue SCIT as an adjunctive measure 03/16/2024 Chronic sinusitis, unspecified (ICD-10 - J32.9) History of recurrent sinopulmonary infections, requiring antibiotics every 3-4 months wiht prior hospitalization - No recent infections on immune replacement -Discussed a trial of Xylitol/XLEAR 10/28/2023 Chronic sinusitis, unspecified (ICD-10 - J32.9) History of recurrent sinopulmonary infections, requiring antibiotics every 3-4 months wiht prior hospitalization - No recent infections on immune replacement -Discussed a trial of Xylitol/XLEAR 07/29/2023 Chronic sinusitis, unspecified (ICD-10 - J32.9) History of recurrent sinopulmonary infections, requiring antibiotics every 3-4 months wiht prior hospitalization - No recent infections on immune replacement -Discussed a trial of Xylitol/XLEAR 07/29/2023 Personal history of pneumonia (recurrent) (ICD-10 - Z87.01) As above 10/28/2023 Personal history of pneumonia (recurrent) (ICD-10 - Z87.01) As above 03/16/2024 Personal history of pneumonia (recurrent) (ICD-10 - Z87.01) As above 03/16/2024 Localized skin erupt ion due to drugs and medicaments taken internally (ICD-10 - L27.1) Treat large local SCIT reactions as above. Also use ice packs 10/28/2023 Localized skin erupt ion due to drugs and medicaments taken internally (ICD-10 - L27.1) Treat large local SCIT reactions as above. Also use ice packs 07/29/2023 Localized skin erupt ion due to drugs and medicaments taken internally (ICD-10 - L27.1) Treat large local SCIT reactions as above. Also use ice packs 07/29/2023 Encounter for therap eutic drug level monitoring (ICD-10 - Z51.81) Pulmonary following Theophylline levels now 10/28/2023 Encounter for therap eutic drug level monitoring (ICD-10 - Z51.81) Pulmonary following Theophylline levels now 03/16/2024 Encounter for therap eutic drug level monitoring (ICD-10 - Z51.81) Pulmonary following Theophylline levels now 03/16/2024 Vitamin D deficiency , unspecified (ICD-10 - E55.9) Check Vitamin D now and discuss DEXA order with PCP 10/28/2023 Vitamin D deficiency , unspecified (ICD-10 - E55.9) Check Vitamin D (with Pneumo titers), and discuss DEXA order with PCP 07/29/2023 Vitamin D deficiency , unspecified (ICD-10 - E55.9) Check Vitamin D (with Pneumo titers), and discuss DEXA order with PCP 07/29/2023 Dysphagia, unspecifi ed (ICD-10 - R13.10) At the end of the visit her brought up her unique eating habits. The past year getting nauseated after eating small amounts of food with occasional food sticking and dysphagia. Will discuss more at f/u. Will have her continue to monitor - Recommend GI evaluation in the next year 10/28/2023 Dysphagia, unspecifi ed (ICD-10 - R13.10) At the end of the visit her brought up her unique eating habits. The past year getting nauseated after eating small amounts of food with occasional food sticking and dysphagia. Will discuss more at f/u. Will have her continue to monitor - Recommend GI evaluation in the next year 03/16/2024 Dysphagia, unspecifi ed (ICD-10 - R13.10) At the end of the visit her brought up her unique eating habits. The past year getting nauseated after eating small amounts of food with occasional food sticking and dysphagia. Will discuss more at f/u. Will have her continue to monitor - Recommend GI evaluation in the next year 10/21/2023 Other 04/29/2023 Other 05/27/2023 Other 06/24/2023 Other 07/29/2023 Other 09/02/2023 Other 10/28/2023 Other 11/25/2023 Other 12/23/2023 Other 01/24/2024 Other 02/21/2024 Other 03/16/2024 Other 03/23/2024 Other Plan Of Treatment Pending Test Test Name Order Date COMPREHENSIVE METABOLIC PANEL 03/16/2024 STREPTOCOCCUS PNEUMONIAE IGG AB (23 SERO TYPES) 03/21/2020 STREPTOCOCCUS PNEUMONIAE IGG AB (23 SERO TYPES) 08/07/2020 ASPERGILLUS ANTIBODIES,IMMUNODIFFUSION 0 03/21/2020 ASPERGILLUS FUMIGATUS (M3) IGE IMMUNOGLOBULIN G 07/29/2023 IMMUNOGLOBULIN G 03/16/2024 CBC (INCLUDES DIFF/PLT) 03/16/2024 CBC (INCLUDES DIFF/PLT) 07/29/2023 CBC (INCLUDES DIFF/PLT) 03/21/2020 IMMUNOGLOBULINS G/A/M 09/11/2021 THEOPHYLLINE 03/21/2020 THEOPHYLLINE 02/01/2020 VITAMIN D, 25-OH, TOTAL, [place] 03/16/2024 VITAMIN D, 25-OH, TOTAL, [place] 07/29/2023 VITAMIN D, 25-OH, TOTAL, [place] 07/25/2020 ASPERGILLUS FUMIGATUS (M3) IGG Next Appt Details Provider Name:Cruz Abel , 04/13/2024 08:20:00 AM, [address], [address], Provider Name:Cruz Abel , 04/20/2024 08:00:00 AM, [address], [address], [place], [address], Provider Name:Princess Crawford , 06/01/2024 10:30:00 AM, [address], [address], [address], Insurance Providers Payer Name Payer Address Payer Phone Subscriber Number Group Number Insured Name Patient Relationship to Insured Coverage Start Date Coverage End Date [facility] [address] [address] [place] [address] [id number] Manuela Adams i Self - patient is the insured 5 Medical (General) History Medical History History ICD Code Hypothyroidism, unspecified E03.9 Type 2 diabetes mellitus without complic ations E11.9 Chronic obstructive pulmonary disease, u nspecified J44.9 anxiety/depression Surgical History Surgery Date(Month/Year) Lung Biopsy 2012 Gallbladder Removed 1998 Tubal 2010 Abrasion 2017 Hospitalization History Reason Date(Month/Year) >30 hospitalizations due to asthma
--- OUTSIDE RECORDS SUMMARY | 2024-04-11 11:21 | XMS_ITS ---
Author Organization [facility] Address [address] [place] [address] Care Team Providers Care Innovation Manager Name Role Phone Maldonado Robles MD Primary Care Provider UnavailPrincess Tee Unavailable [phone] Cruz Abel Unavailable [phone] REASON FOR VISIT Asthma w/o mention of status asthmaticus or acute exacerbation follow-up, TEZSPIRE administration scheduled today, Needs evaluation for pre-TEZSPIRE health questionaire to assess health status and medication review Medications Medication SIG (Take, Route, Frequency, Duration) Notes Start Date End Date Status Phentermine HCl 37.5 MG 1 cap(s) orally once a day 08/07/2021 Not-Taking ASMANEX TWISTHALER 120 DOSE 220 MCG/INH 1 PUFF(S) INHALED ONCE A DAY (IN THE EVENING) for 30 DAY(S) *Please review for potential replacement for e-prescription and drug interaction check* 05/01/2021 Not-Taking Azelastine HCl 137 MCG/SPRAY 2 spray(s) intranasally twice a day as needed for 90 Not-Taking Pneumovax 23 - 0.5 ML INTRAMUSCULARLY ONCE for 1 DOSE(S) *Please review and pick correct strength-formula tion from [employer] options. If intended option is not shown, discontinue and re-order from Quick Search* Not-Taking predniSONE 20 MG 4 tab(s) orally once a day for 5 day(s) 05/05/2021 Not-Taking B-12 1000 MCG 1 tab(s) orally once a day for 30 day(s) Not-Taking Xolair 375 MG DIRECTED SUBCUTANEOUSLY EVERY 2 WEEKS *Please review and pick correct strength-formula tion from [employer] options. If intended option is not shown, discontinue and re-order from Quick Search* Not-Taking Famotidine 40 MG 1 tab(s) orally 1 hour prior to allergy shots for 30 day(s) Not-Taking Rybelsus 14 MG 1 tab(s) orally once a day for 30 day(s) Not-Taking predniSONE 20 MG 3 tab(s) orally once a day, call office prior to starting Not-Taking FAMOTIDINE 40 mg 1 tab(s) orally 1 hour prior to allergy shots for 30 day(s) Not-Taking PHENTERMINE 37.5 mg 1 cap(s) orally once a day 08/07/2021 Not-Taking PREDNISONE 20 mg 4 tab(s) orally once a day for 5 day(s) 05/05/2021 Not-Taking AZELASTINE HYDROCHLORIDE NASAL 137 mcg/inh 2 spray(s) intranasally twice a day as needed for 90 Not-Taking PNEUMOVAX 23 - 0.5 mL intramuscularly once for 1 dose(s) Not-Taking SINGULAIR 10 mg 1 tab(s) orally once a day for 90 days Not-Taking LISINOPRIL 20 mg 1 tab(s) orally once a day Not-Taking B-12 1000 mcg 1 tab(s) orally once a day for 30 day(s) Not-Taking XOLAIR 375 mg as directed subcutaneously every 2 weeks Not-Taking RYBELSUS 14 mg 1 tab(s) orally once a day for 30 day(s) Not-Taking VITAMIN D3 Not-Takin g FETZIMA 40 mg 1 cap(s) orally once a day for 30 days Not-Taking FARXIGA 10 mg 1 tab(s) orally once a day for 30 day(s) Not-Taking LEVOTHYROXINE 125 mcg (0.125 mg) 1 tab(s) orally once a day for 30 day(s) Not-Taking BUPROPION 200 mg/12 hours 1 tab(s) orally 2 times a day for 30 day(s) once a day/not sure of dose Not-Taking Lisinopril 20 MG 1 tab(s) orally once a day Active Singulair 10 MG 1 tab(s) orally once a day for 90 days Active Xembify KLHW 20% 12 G SUBCUTANEOUSLY WEEKLY *Please review and pick correct strength-formula tion from [employer] options. If intended option is not shown, discontinue and re-order from Quick Search* Active TRELEGY ELLIPTA 200 mcg-62.5 mcg-25 mcg/inh INHALE 1 PUFF BY MOUTH ONCE DAILY for 30 Not-Taking TRELEGY ELLIPTA 200 mcg-62.5 mcg-25 mcg/inh 1 puff(s) inhaled once a day for 30 day(s) Not-Taking buPROPion HCl ER (SR) 200 MG 1 tab(s) orally 2 times a day for 30 day(s) once a day/not sure of dose Active Fetzima 40 MG 1 cap(s) orally once a day for 30 days Active Levothyroxine Sodium 125 MCG 1 tab(s) orally once a day for 30 day(s) Active Farxiga 10 MG 1 tab(s) orally once a day for 30 day(s) Active BUSPAR 10mg twice a day *Please review for potential replacement for e-prescription and drug interaction check* Active Famotidine 40 MG 1 tab(s) orally 1 hour prior to allergy shots for 30 day(s) Active Azelastine HCl 137 MCG/SPRAY 2 spray(s) intranasally twice a day as needed for 30 day(s) Active Flonase Allergy Relief 50 MCG/ACT 2 spray(s) intranasally once a day Active Cetirizine HCl 10 MG 1 tab(s) orally once a day Active Vitamin D3 *Please review and pick correct strength-formula tion from [employer] options. If intended option is not shown, discontinue and re-order from Quick Search* Active Triamcinolone Acetonide 0.1 % 1 herbert applied topically 3 times a day as needed for 14 days Active Theophylline 600 MG/24 HOURS 1 TAB(S) ORALLY ONCE A DAY *Please review and pick correct strength-formula tion from [employer] options. If intended option is not shown, discontinue and re-order from Quick Search* Active Auvi-Q 0.3 MG/0.3ML as directed intramuscularly once for 30 day(s) Active Trelegy Ellipta 200 mcg-62.5 mcg-25 mcg/inh INHALE 1 PUFF BY MOUTH ONCE DAILY for 30 Active XEMBIFY klhw 20% 12 g subcutaneously weekly Active FAMOTIDINE 40 mg 1 tab(s) orally 1 hour prior to allergy shots for 30 day(s) Active FLONASE 50 mcg/inh 2 spray(s) intranasally once a day Active CETIRIZINE HYDROCHLORIDE 10 mg 1 tab(s) orally once a day Active TEZSPIRE PRE-FILLED SYRINGE ekko 210 mg/1.91 mL as directed subcutaneously every 4 weeks Active SIT (TRADITIONAL) variable per schedule SC per schedule Active AEROCHAMBER MDI SPACER - MOUTHPIECE (ADULT) N/A As directed PO Per asthma action plan Active ALBUTEROL-IPRATROPI UM 2.5 mg-0.5 mg/3 mL 3 mL by nebulizer 4 times a day Active AZELASTINE HYDROCHLORIDE NASAL 137 mcg/inh 2 spray(s) intranasally twice a day as needed for 30 day(s) Active THEOPHYLLINE 600 mg/24 hours 1 tab(s) orally once a day Active PROAIR HFA 90 mcg/inh 2 puff(s) inhaled Q4-6 hours, PRN and per the asthma action plan for 90 days Active SINGULAIR 10 mg 1 tab(s) orally once a day for 90 days Active TRIAMCINOLONE ACETONIDE TOPICAL 0.1% 1 herbert applied topically 3 times a day as needed for 14 days Active Trelegy Ellipta 200 mcg-62.5 mcg-25 mcg/inh 1 puff(s) inhaled once a day for 30 day(s) Active AUVI -Q 0.3 mg as directed intramuscularly once for 30 day(s) Active PREDNISONE 20 mg 3 tab(s) orally once a day, call office prior to starting Active Vital Signs Blood pressure systolic 135 mm Hg 03/23/19 25 Blood pressure diastolic 83 mm Hg 025 Oximetry 99 % 03/23/2024 Height 66 in 03/23/2024 Encounters Encounter Location Date Provider Diagnosis [facility] [address] [place] [address] 03/23/2024 Cruz Abel Severe persistent asthma, uncomplicated J45.50 Assessments Encounter Date Diagnosis (ICD Code) Assessment Notes Treatment Notes Treatment Clinical Notes Section Notes 03/23/2024 Severe persistent asthma, uncomplicated (ICD-10 - J45.50) 03/23/2024 Other Plan Of Treatment Next Appt Details Follow Up: As scheduled for tezspire, Reason: Provider Name:Cruz Abel , 04/13/2024 08:20:00 AM, [address] [facility], [address], [place], [address], Provider Name:Cruz Abel , 04/20/2024 08:00:00 AM, [address] [facility], [address], [place], [address], Provider Name:Princess Ernie Crawford , 06/01/2024 10:30:00 AM, [address] [facility], [address], [place], [address], Procedure Notes * Category Sub-Category Detail Notes TEZSPIRE (tezepelumab-ekko) Administration Dosing Time / Vitals Deann Oglesby 03/23/2024 08:00:31 AM SPORTS AGENT >, See initial vitals Dose Concentration/Dosing : 210 mg (110 mg/mL) / 1.91 mL subcutaneous injection Location MAGDY Reaction None Frequency Interval:: Monthly Lot Number / Expiration None Additional Information Lot Number: [id number] , Expiration: 08/21/2025 Post-procedural check-out: Sosa Oglesby 03/23/2024 08:32:53 AM SPORTS AGENT >, Vital signs taken 30 minutes after dosing: BP: 122/86 HR: 92 SPO2: 99 Medication Source TEZSPIRE Source: Buy and Bill Source Verification:: Who pulled drug (p lease type staff name in notes)? KW Medical necessity for in-off ice administration The patient or caregiver is not suitable , not competent or is physically unable to administer the TEZSPIRE product for the following reason(s):: Accordingly, the patient requires direct monitoring and administration by a healthcare professional Progress Notes * Jairo EDMONDSOB:[birth year] (44 yo F)Acc No.[id number]:03/23/2024 TEZSPIRE Only Patient: Manuela CELIS Provider: Khanh Abel MD :1980 A ge:44 Y S ex:Female Date:03/23/2024 Address:[address] [place], [place] [id number] Pcp:Maldonado Robles MD Subjective: * Chief Complaints: * A sthma w/o mention of status asthmaticus or acute exacerbation follow-up, TEZSPIRE administration scheduled todayNeeds evaluation for pre-TEZSPIRE health questionaire to assess health status and medication review * HPI: * Introduction: The patient is here for scheduled immunotherapy with TEZSPIRE. Please see the attached specialty form regarding the specifics of the administration of this medication. As per our protocol, they must undergo a screening health questionnaire (medication changes, reaction(s) to last immunotherapy dose(s), current health status, ACT (if appropriate), self-injectable epinephrine on patient(?) and peak flow (if appropriate)). * Medical History: * Surgical History: * Hospitalization/Major Diagno stic Procedure: * Medications: T akingTRIAMCINOLONE ACETONIDE TOPICAL 0.1% cream 1 herbert applied topically 3 times a day as needed SINGULAIR 10 mg tablet 1 tab(s) orally once a day AUVI -Q 0.3 mg kit as directed intramuscularly once Trelegy Ellipta 200 mcg-62.5 mcg-25 mcg/inh powder 1 puff(s) inhaled once a day PREDNISONE 20 mg tablet 3 tab(s) orally once a day, call office prior to starting THEOPHYLLINE 600 mg/24 hours tablet, extended release 1 tab(s) orally once a day PROAIR HFA 90 mcg/inh aerosol 2 puff(s) inhaled Q4-6 hours, PRN and per the asthma action plan ALBUTEROL-IPRATROPIUM 2.5 mg-0.5 mg/3 mL solution 3 mL by nebulizer 4 times a day AEROCHAMBER MDI SPACER - MOUTHPIECE (ADULT) N/A Spacer for MDI use As directed PO Per asthma action plan AZELASTINE HYDROCHLORIDE NASAL 137 mcg/inh spray 2 spray(s) intranasally twice a day as needed FAMOTIDINE 40 mg tablet 1 tab(s) orally 1 hour prior to allergy shots CETIRIZINE HYDROCHLORIDE 10 mg tablet 1 tab(s) orally once a day FLONASE 50 mcg/inh spray 2 spray(s) intranasally once a day SIT (TRADITIONAL) variable see record per schedule SC per schedule TEZSPIRE PRE-FILLED SYRINGE ekko 210 mg/1.91 mL solution as directed subcutaneously every 4 weeks XEMBIFY klhw 20% solution 12 g subcutaneously weekly Trelegy Ellipta 200 mcg-62.5 mcg-25 mcg/inh powder INHALE 1 PUFF BY MOUTH ONCE DAILY Triamcinolone Acetonide 0.1 % Cream 1 herbert applied topically 3 times a day as needed Auvi-Q 0.3 MG/0.3ML Solution Auto-injector as directed intramuscularly once Theophylline 600 MG/24 HOURS TABLET, EXTENDED RELEASE 1 TAB(S) ORALLY ONCE A DAY , Notes to Pharmacist: *Please review and pick correct strength-formulation from [employer] options. If intended option is not shown, discontinue and re-order from Quick Search*Azelastine HCl 137 MCG/SPRAY Solution 2 spray(s) intranasally twice a day as needed Famotidine 40 MG Tablet 1 tab(s) orally 1 hour prior to allergy shots Cetirizine HCl 10 MG Tablet 1 tab(s) orally once a day Flonase Allergy Relief 50 MCG/ACT Suspension 2 spray(s) intranasally once a day Vitamin D3 , Notes to Pharmacist: *Please review and pick correct strength-formulation from [employer] options. If intended option is not shown, discontinue and re-order from Quick Search*Farxiga 10 MG Tablet 1 tab(s) orally once a day YAN , Notes to Pharmacist: 10mg twice a day *Please review for potential replacement for e-prescription and drug interaction check*Fetzima 40 MG Capsule Extended Release 24 Hour 1 cap(s) orally once a day buPROPion HCl ER (SR) 200 MG Tablet Extended Release 12 Hour 1 tab(s) orally 2 times a day , Notes to Pharmacist: once a day/not sure of doseLevothyroxine Sodium 125 MCG Tablet 1 tab(s) orally once a day Lisinopril 20 MG Tablet 1 tab(s) orally once a day Xembify KLHW 20% SOLUTION 12 G SUBCUTANEOUSLY WEEKLY , Notes to Pharmacist: *Please review and pick correct strength-formulation from [employer] options. If intended option is not shown, discontinue and re-order from Quick Search*Singulair 10 MG Tablet 1 tab(s) orally once a day Taking TRIAMCINOLONE ACETONIDE TOPICAL 0.1% cream 1 herbert applied topically 3 times a day as needed Taking SINGULAIR 10 mg tablet 1 tab(s) orally once a day Taking AUVI -Q 0.3 mg kit as directed intramuscularly once Taking Trelegy Ellipta 200 mcg-62.5 mcg-25 mcg/inh powder 1 puff(s) inhaled once a day Taking PREDNISONE 20 mg tablet 3 tab(s) orally once a day, call office prior to starting Taking THEOPHYLLINE 600 mg/24 hours tablet, extended release 1 tab(s) orally once a day Taking PROAIR HFA 90 mcg/inh aerosol 2 puff(s) inhaled Q4-6 hours, PRN and per the asthma action plan Taking ALBUTEROL-IPRATROPIUM 2.5 mg-0.5 mg/3 mL solution 3 mL by nebulizer 4 times a day Taking AEROCHAMBER MDI SPACER - MOUTHPIECE (ADULT) N/A Spacer for MDI use As directed PO Per asthma action plan Taking AZELASTINE HYDROCHLORIDE NASAL 137 mcg/inh spray 2 spray(s) intranasally twice a day as needed Taking FAMOTIDINE 40 mg tablet 1 tab(s) orally 1 hour prior to allergy shots Taking CETIRIZINE HYDROCHLORIDE 10 mg tablet 1 tab(s) orally once a day Taking FLONASE 50 mcg/inh spray 2 spray(s) intranasally once a day Taking SIT (TRADITIONAL) variable see record per schedule SC per schedule Taking TEZSPIRE PRE-FILLED SYRINGE ekko 210 mg/1.91 mL solution as directed subcutaneously every 4 weeks Taking XEMBIFY klhw 20% solution 12 g subcutaneously weekly Taking Trelegy Ellipta 200 mcg-62.5 mcg-25 mcg/inh powder INHALE 1 PUFF BY MOUTH ONCE DAILY Taking Triamcinolone Acetonide 0.1 % Cream 1 herbert applied topically 3 times a day as needed Taking Auvi-Q 0.3 MG/0.3ML Solution Auto-injector as directed intramuscularly once Taking Theophylline 600 MG/24 HOURS TABLET, EXTENDED RELEASE 1 TAB(S) ORALLY ONCE A DAY , Notes to Pharmacist: *Please review and pick correct strength-formulation from [employer] options. If intended option is not shown, discontinue and re-order from Quick Search*Taking Azelastine HCl 137 MCG/SPRAY Solution 2 spray(s) intranasally twice a day as needed Taking Famotidine 40 MG Tablet 1 tab(s) orally 1 hour prior to allergy shots Taking Cetirizine HCl 10 MG Tablet 1 tab(s) orally once a day Taking Flonase Allergy Relief 50 MCG/ACT Suspension 2 spray(s) intranasally once a day Taking Vitamin D3 , Notes to Pharmacist: *Please review and pick correct strength-formulation from [employer] options. If intended option is not shown, discontinue and re-order from Quick Search*Taking Farxiga 10 MG Tablet 1 tab(s) orally once a day Taking BUSPAR , Notes to Pharmacist: 10mg twice a day *Please review for potential replacement for e-prescription and drug interaction check*Taking Fetzima 40 MG Capsule Extended Release 24 Hour 1 cap(s) orally once a day Taking buPROPion HCl ER (SR) 200 MG Tablet Extended Release 12 Hour 1 tab(s) orally 2 times a day , Notes to Pharmacist: once a day/not sure of doseTaking Levothyroxine Sodium 125 MCG Tablet 1 tab(s) orally once a day Taking Lisinopril 20 MG Tablet 1 tab(s) orally once a day Taking Xembify KLHW 20% SOLUTION 12 G SUBCUTANEOUSLY WEEKLY , Notes to Pharmacist: *Please review and pick correct strength-formulation from [employer] options. If intended option is not shown, discontinue and re-order from Quick Search*Taking Singulair 10 MG Tablet 1 tab(s) orally once a day Not-Taking/PRNTrelegy Ellipta 200 mcg-62.5 mcg-25 mcg/inh powder 1 puff(s) inhaled once a day TRELEGY ELLIPTA 200 mcg-62.5 mcg-25 mcg/inh powder INHALE 1 PUFF BY MOUTH ONCE DAILY TRELEGY ELLIPTA 200 mcg-62.5 mcg-25 mcg/inh powder 1 puff(s) inhaled once a day VITAMIN D3 FARXIGA 10 mg tablet 1 tab(s) orally once a day FETZIMA 40 mg capsule, extended release 1 cap(s) orally once a day BUPROPION 200 mg/12 hours tablet, extended release 1 tab(s) orally 2 times a day , Notes to Pharmacist: once a day/not sure of doseLEVOTHYROXINE 125 mcg (0.125 mg) tablet 1 tab(s) orally once a day LISINOPRIL 20 mg tablet 1 tab(s) orally once a day SINGULAIR 10 mg tablet 1 tab(s) orally once a day XOLAIR 375 mg powder for injection as directed subcutaneously every 2 weeks B-12 1000 mcg tablet 1 tab(s) orally once a day RYBELSUS 14 mg tablet 1 tab(s) orally once a day FAMOTIDINE 40 mg tablet 1 tab(s) orally 1 hour prior to allergy shots PHENTERMINE 37.5 mg capsule 1 cap(s) orally once a day AZELASTINE HYDROCHLORIDE NASAL 137 mcg/inh spray 2 spray(s) intranasally twice a day as needed PREDNISONE 20 mg tablet 4 tab(s) orally once a day PNEUMOVAX 23 - solution 0.5 mL intramuscularly once predniSONE 20 MG Tablet 3 tab(s) orally once a day, call office prior to starting Xolair 375 MG POWDER FOR INJECTION DIRECTED SUBCUTANEOUSLY EVERY 2 WEEKS , Notes to Pharmacist: *Please review and pick correct strength-formulation from [employer] options. If intended option is not shown, discontinue and re-order from Quick Search*B-12 1000 MCG Tablet 1 tab(s) orally once a day Rybelsus 14 MG Tablet 1 tab(s) orally once a day Famotidine 40 MG Tablet 1 tab(s) orally 1 hour prior to allergy shots Phentermine HCl 37.5 MG Capsule 1 cap(s) orally once a day Azelastine HCl 137 MCG/SPRAY Solution 2 spray(s) intranasally twice a day as needed ASMANEX TWISTHALER 120 DOSE 220 MCG/INH AEROSOL POWDER 1 PUFF(S) INHALED ONCE A DAY (IN THE EVENING) , Notes to Pharmacist: *Please review for potential replacement for e-prescription and drug interaction check*predniSONE 20 MG Tablet 4 tab(s) orally once a day Pneumovax 23 - SOLUTION 0.5 ML INTRAMUSCULARLY ONCE , Notes to Pharmacist: *Please review and pick correct strength-formulation from [employer] options. If intended option is not shown, discontinue and re-order from Quick Search*Not-Taking/PRN Trelegy Ellipta 200 mcg-62.5 mcg-25 mcg/inh powder 1 puff(s) inhaled once a day Not-Taking/PRN TRELEGY ELLIPTA 200 mcg-62.5 mcg-25 mcg/inh powder INHALE 1 PUFF BY MOUTH ONCE DAILY Not-Taking/PRN TRELEGY ELLIPTA 200 mcg- 62.5 mcg-25 mcg/inh powder 1 puff(s) inhaled once a day Not-Taking/PRN VITAMIN D3 Not-Taking/PRN FARXIGA 10 mg tablet 1 tab(s) orally once a day Not-Taking/PRN FETZIMA 40 mg capsule, extended release 1 cap(s) orally once a day Not-Taking/PRN BUPROPION 200 mg/12 hours tablet, extended release 1 tab(s) orally 2 times a day , Notes to Pharmacist: once a day/not sure of doseNot-Taking/PRN LEVOTHYROXINE 125 mcg (0.125 mg) tablet 1 tab(s) orally once a day Not-Taking/PRN LISINOPRIL 20 mg tablet 1 tab(s) orally once a day Not-Taking/PRN SINGULAIR 10 mg tablet 1 tab(s) orally once a day Not-Taking/PRN XOLAIR 375 mg powder for injection as directed subcutaneously every 2 weeks Not-Taking/PRN B-12 1000 mcg tablet 1 tab(s) orally once a day Not- Taking/PRN RYBELSUS 14 mg tablet 1 tab(s) orally once a day Not-Taking/PRN FAMOTIDINE 40 mg tablet 1 tab(s) orally 1 hour prior to allergy shots Not-Taking/PRN PHENTERMINE 37.5 mg capsule 1 cap(s) orally once a day Not-Taking/PRN AZELASTINE HYDROCHLORIDE NASAL 137 mcg/inh spray 2 spray(s) intranasally twice a day as needed Not-Taking/PRN PREDNISONE 20 mg tablet 4 tab(s) orally once a day Not-Taking/PRN PNEUMOVAX 23 - solution 0.5 mL intramuscularly once Not-Taking/PRN predniSONE 20 MG Tablet 3 tab(s) orally once a day, call office prior to starting Not-Taking/PRN Xolair 375 MG POWDER FOR INJECTION DIRECTED SUBCUTANEOUSLY EVERY 2 WEEKS , Notes to Pharmacist: *Please review and pick correct strength-formulation from [employer] options. If intended option is not shown, discontinue and re-order from Quick Search*Not-Taking/PRN B-12 1000 MCG Tablet 1 tab(s) orally once a day Not-Taking/PRN Rybelsus 14 MG Tablet 1 tab(s) orally once a day Not-Taking/PRN Famotidine 40 MG Tablet 1 tab(s) orally 1 hour prior to allergy shots Not-Taking/PRN Phentermine HCl 37.5 MG Capsule 1 cap(s) orally once a day Not-Taking/PRN Azelastine HCl 137 MCG/SPRAY Solution 2 spray(s) intranasally twice a day as needed Not-Taking/PRN ASMANEX TWISTHALER 120 DOSE 220 MCG/INH AEROSOL POWDER 1 PUFF(S) INHALED ONCE A DAY (IN THE EVENING) , Notes to Pharmacist: *Please review for potential replacement for e-prescription and drug interaction check*Not-Taking/PRN predniSONE 20 MG Tablet 4 tab(s) orally once a day Not-Taking/PRN Pneumovax 23 - SOLUTION 0.5 ML INTRAMUSCULARLY ONCE , Notes to Pharmacist: *Please review and pick correct strength-formulation from [employer] options. If intended option is not shown, discontinue and re-order from Quick Search* Objective: * Vitals: B P:135/83mm Hg, HR:87/min, Pulse Oximetry:99%, ACT:25, Ht: 66 in. Assessment: * Assessment: 1. S guzman persistent asthma, uncomplicated - J45.50 (Primary) Plan: * Treatment: * Procedures: T EZSPIRE (tezepelumab-ekko) Administration: Dosing Time / Vitals Deann Beach Muna 03/23/2024 08:00:31 AM SPORTS AGENT >, See initial vitals. Dose C oncentration/Dosing 2 10 mg (110 mg/mL) / 1.91 mL subcutaneous injection Location L UA. Reaction N one. Frequency I nterval: M onthly Lot Number / Expiration N one. Additional Information L ot Number: [id number] , Expiration: 08/21/2025. Post-procedural check-out: Giovani islasLuisDeann M 03/23/2024 08:32:53 AM SPORTS AGENT >, Vital signs taken 30 minutes after dosing: BP: 122/86 HR: 92 SPO2: 99 . Medication Source T EZSPIRE Source B she[employer] Abdiel dukes Verification: W ho pulled drug (please type staff name in notes)? 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 11639 PT-FOCUSED HLTH RISK ASSMT. J2356 TEZSPIRE 210 mg - 1 unit (1 mg). Units: 210.00. Modifiers: JZ * TS AGENT Electronically co-signed by Cruz Abel MD, FAAAAI on 03/30/2024 at 11:40 AM SPORTS AGENT Sign off status: Completed true * Provider: Khanh Abel MD Date: 0 03/23/2024 Generated for [place] nori/Karel/Seferinosmitting on: 0 04/11/2024 11:05 AM SPORTS AGENT History and Physical Notes * HPI (History of Present Illness) Category Sub-Category Detail Notes Category Not es *Introduction The patient is here for scheduled immunotherapy with TEZSPIRE. Please see the attached specialty form regarding the specifics of the administration of this medication. As per our protocol, they must undergo a screening health questionnaire (medication changes, reaction(s) to last immunotherapy dose(s), current health status, ACT (if appropriate), self-injectable epinephrine on patient(?) and peak flow (if appropriate)).
[2024-04-11 11:40] VITALS: BP 131/80; PULSE 81; RESP 16; O2SAT 100
[2024-04-11 12:27] VITALS: BP 130/78; PULSE 84; RESP 16; O2SAT 100
[2024-04-11] MEDS: ONDANSETRON INJ 4 MG/2 ML VIAL IV PUSH (12:32)
[2024-04-11] MEDS: SODIUM CHLORIDE 0.9% IV 1,000 ML 999 ML IV CONT ×2 (12:32→13:20)
[2024-04-11 12:40] LABS: Basophils Percent Auto 0.1 % (0.2-1.2); Hematocrit 38.6 % (37.0-47.0); Hemoglobin 12.5 g/dL (12.0-15.0); Immature Granulocyte Absolute 0.07 K/mm3 (0.00-0.031); Immature Granulocyte Percent A 0.4 % (0-0.5); Lymphocytes Absolute Auto 0.47 K/mm3 (0.9-3.2); Lymphocytes Percent Auto 2.5 % (18.3-44.2); Mean Corpuscular HGB Conc 32.4 g/dl (32-36); Mean Corpuscular Hemoglobin 27.4 pg (26-34); Mean Corpuscular Volume 84.6 fl (80-100); Mean Platelet Volume 11.1 fl (7.4-10.4); Monocytes Percent Auto 5.2 % (2.6-8.5); Neutrophils Absolute Auto 17.4 K/mm3 (1.3-6.7); Neutrophils Percent Auto 91.8 % (45.5-73.1); Platelet Count Result 535 k/mm3 (150-375); Red Blood Count 4.56 M/mm3 (4.2-5.4)
[2024-04-11 12:56] LABS: Lactic Acid Reflex 4.6 mmol/L (0.7-2.0)
--- NOTE | 2024-04-11 12:56 | ED.GENADULT ---
HPI - General Adult General Chief complaint: Nausea/Vomiting/Diarrhea Stated complaint: vomiting blood Time Seen by Provider: 04/11/24 10:59 Source: patient Mode of arrival: ambulatory Limitations: no limitations History of Present Illness HPI narrative: Mod[age] year old with a history of hypertension hyperlipidemia, diabetes, hypothyroidism here with the complaints of nausea, vomiting, diarrhea and abdominal pain which started last night. Patient states that she vomited several times and now feels dehydrated. Denies any blood in her stools. No history of fever or chills. Onset (ago): day(s) (1) Severity: moderate Quality: aching Treatments prior to arrival: none Related Data Home Medications ?Medication ?Instructions ?Recorded ?Confirmed ?Last Taken ?Type azelastine 137 mcg-fluticasone 50 2 spray intranasal BID 08/24/19 03/28/24 Unknown History mcg/spray nasal spray buspirone 10 mg tablet 10 mg PO BID 08/24/19 03/28/24 Unknown History famotidine 40 mg tablet 40 mg PO .COMPLEX 08/24/19 03/28/24 Unknown History Allergies Allergy/AdvReac Type Severity Reaction Status Date / Time citalopram AdvReac Mild Abdominal Verified 04/11/24 11:30 Pain dexamethasone AdvReac Unknown weight gain Verified 04/11/24 11:30 Review of Systems Review of Systems: All systems reviewed & are unremarkable except as noted in HPI and below Constitutional: Constitutional: Reports no additional constitutional complaints Eyes: Eyes: Reports no additional eye complaints ENT: Reports system reviewed and no additional complaints, except as documented Cardiovascular: Cardiovascular: Reports no additional cardiovascular complaints Respiratory: Respiratory: Reports no additional respiratory complaints Gastrointestinal: Gastrointestinal: Reports as per HPI Musculoskeletal: Musculoskeletal: Reports no additional musculoskeletal complaints Neurologic: Reports system reviewed and no additional complaints, except as documented [facility] Past Medical History Medical History Frequent loose stools Dysphagia Heartburn HTN (hypertension) Obesity Elevated blood pressure reading Type 2 diabetes mellitus without complications Anxiety Obesity (BMI 30.0-34.9) Weight gain Asthma Depression Controlled diabetes mellitus type II without complication Family History Family History Father Asthma Family history of emphysema, Onset Age: 69 Mother Asthma Family history of arthritis Grandparent Carcinoma of colon, Onset Age: 88 Other Diabetes mellitus Family history of cardiovascular disease Family history of malignant neoplasm Family history of malignant neoplasm of urinary bladder Social History Social History Smoking packs per day: 1 Smoking cigarettes per day: 20.0 Years smoked: 16 Smoking pack-years: 16.00 Smoking status: Former smoker Tobacco type: cigarettes Second hand tobacco smoke exposure: No Smoking end date: 02/22/10 Alcohol intake: never Substance use: never Substance use type: does not use Living arrangements: with family Occupation/Education: occupation Gender identity (if verbalized by the patient): Female Exam Narrative: GENERAL: Well-appearing, well-nourished, and in no acute distress. HEAD: Normocephalic, atraumatic. EYES: PERRLA and EOMI.. NECK: Supple. CHEST: Clear to auscultation. No respiratory distress. HEART: Regular rate and rhythm. No murmur heard. Normal peripheral pulses. ABDOMEN: Soft, Epigastric tendeness r, nondistended, normal active bowel sounds. EXTREMITIES: Normal range of motion. No edema. SKIN: Warm, dry, no rash. NEURO: No focal deficits. Alert and oriented x3. PSYCH: Normal mood and affect. Course Course Emergency Course: Patient was given 2.5 L of IV fluid, CT showed a fibroid uterus. She had no further episodes of nausea or vomiting. 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 Vital Signs Vital signs: Vital Signs Temperature 36.4 C L 04/11/24 11:00 Pulse Rate 85 04/11/24 11:00 Respiratory Rate 20 04/11/24 11:00 Blood Pressure 129/80 04/11/24 11:00 Pulse Oximetry 100 04/11/24 11:00 Oxygen Delivery Room Air 04/11/24 11:00 Temperature 36.4 C L 04/11/24 11:00 Pulse Rate 93 04/11/24 14:42 Respiratory Rate 18 04/11/24 14:42 Blood Pressure 142/92 H 04/11/24 14:42 Pulse Oximetry 100 04/11/24 14:42 Oxygen Delivery Room Air 04/11/24 11:00 Medical Decision Making [facility] Narrative Medical decision making narrative: 44-year-old with history of hypertension hypothyroidism, diabetes here with the complaints of nausea vomiting abdomen is soft mild tenderness in the epigastric area was made to abdominal workup start IV fluids control and nausea with Zofran. Medical Records Medical records reviewed: Yes I reviewed the external patient's medical records. Vital Signs Vital Signs: Vital Signs Temperature 36.4 C L 04/11/24 11:00 Pulse Rate 85 04/11/24 11:00 Respiratory Rate 20 04/11/24 11:00 Blood Pressure 129/80 04/11/24 11:00 Pulse Oximetry 100 04/11/24 11:00 Oxygen Delivery Room Air 04/11/24 11:00 Temperature 36.4 C L 04/11/24 11:00 Pulse Rate 93 04/11/24 14:42 Respiratory Rate 18 04/11/24 14:42 Blood Pressure 142/92 H 04/11/24 14:42 Pulse Oximetry 100 04/11/24 14:42 Oxygen Delivery Room Air 04/11/24 11:00 Lab Data Lab results reviewed: Yes I reviewed the patient's lab results. 04/11/24 12:35 04/11/24 14:47 Labs: Lab Results 04/11/24 04/11/24 Range/Units 12:35 14:47 WBC 19.0 H (4.5-10.0) K/mm3 RBC 4.56 (4.2-5.4) M/mm3 Hgb 12.5 (12.0-15.0) g/dL Hct 38.6 (37.0-47.0) % MCV 84.6 (80-100) fl MCH 27.4 (26-34) pg MCHC 32.4 (32-36) g/dl RDW 15.0 H (11.5-14.5) % Plt Count 535 H (150-375) k/mm3 MPV 11.1 H (7.4-10.4) fl Immature Gran % (Auto) 0.4 (0-0.5) % Neut % (Auto) 91.8 H (45.5-73.1) % Lymph % (Auto) 2.5 L (18.3-44.2) % [place] % (Auto) 5.2 (2.6-8.5) % Eos % (Auto) 0.0 (0-4.4) % Baso % (Auto) 0.1 L (0.2-1.2) % Lymph # (Auto) 0.47 L (0.9-3.2) K/mm3 [place] # (Auto) 1.0 H (0.1-0.6) K/mm3 Eos # (Auto) 0.0 (0-0.3) K/mm3 Baso # (Auto) 0.0 (0.0-0.1) K/mm3 Abs Immat Gran (auto) 0.07 H (0.00-0.031) K/mm3 Absolute Neuts (auto) 17.4 H (1.3-6.7) K/mm3 Absolute Nucleated RBC 0.000 (0.0-0.012) K/mm3 Nucleated RBC % 0.0 (0.0-0.2) % Sodium 137 138 (137-145) mmol/L Potassium 3.8 3.4 (3.4-5.0) mmol/L Chloride 100 104 (98-107) mmol/L Carbon Dioxide 16 L 18 L (22-30) mmol/L Anion Gap 21 H 16 H (4-12) mmol/L BUN 15 13 (7-17) mg/dL Creatinine 0.75 0.64 L (0.7-1.0) mg/dL Estim Creat Clear Calc 77 89 ml/min Estimated GFR > 60 > 60 (59 - ) Glucose 225 H 167 H (65-110) mg/dL Lactic Acid 4.6 H* 2.3 H (0.7-2.0) mmol/L Calcium 10.7 H 9.1 (8.4-10.2) mg/dL Total Bilirubin 0.7 (0.2-1.3) mg/dL AST 19 (14-36) U/L ALT 25 (6-35) U/L Alkaline Phosphatase 127 H (38-126) U/L Total Protein 9.0 H (6.3-8.2) g/dL Albumin 5.0 (3.5-5.1) g/dL Lipase 81 (23-300) U/L Imaging Data Radiologist's impression: ITS Impressions Abdomen/Pelvis CT 04/11/24 13:55 IMPRESSION: 1. Large uterine fibroid with worsening from 07/25/2018. Discharge Plan Discharge Clinical Impression: Nausea & vomiting, Acute dehydration, Abdominal pain, Fibroid, uterine Patient Disposition: Home, Self-Care Condition: Stable Instructions: Acute Nausea and Vomiting (ED), Abdominal Pain (ED) Patient Language: Macanese Prescriptions: New ondansetron 4 mg tablet,disintegrating 4 mg PO Q6-8H PRN (Reason: nausea and vomiting) Qty: 14 0RF No Action Fetzima 40 mg capsule,extended release 24 hr 40 mg PO DAILY Qty: 30 0RF (DME) lancets [OneTouch UltraSoft Lancets] Misc See Rx Instructions .ROUTE .MEDSUPPLY Qty: 100 2RF Rx Instructions: Use to test fastingblood sugar once every morning. metformin 500 mg tablet extended release 24 hr See Rx Instructions .ROUTE .COMPLEX Qty: 180 3RF Dose Instruction: TAKE 4 TABLETS BY MOUTH ONCE DAILY IN THE IN THE EVENING Rx Instructions: TAKE 2 TABLETS BY MOUTH ONCE DAILY IN THE IN THE EVENING lisinopril 10 mg tablet 10 mg PO DAILY Qty: 30 5RF omeprazole 20 mg capsule,delayed release(DR/EC) 20 mg PO DAILY 30 Days Qty: 30 3RF buspirone 10 mg tablet 10 mg PO BID azelastine-fluticasone 137-50 mcg/spray spray,non-aerosol 2 spray NASAL BID Rx Instructions: administer into each nostril famotidine 40 mg tablet 40 mg PO .COMPLEX Rx Instructions: 40 mg PO PRN, take one hour before injection; Xembify 1 gram/5 mL (20 %) solution 5,748 mg subcut WEEKLY Qty: 5 0RF Rx Instructions: Receiving per waste transportation technician uncertain dosage calcium carbonate-vitamin D3 600 mg(1,500mg) -500 unit capsule See Rx Instructions .ROUTE .COMPLEX Qty: 30 5RF Dose Instruction: TAKE 1 CAPSULE BY MOUTH EVERY DAY Rx Instructions: TAKE 1 CAPSULE BY MOUTH EVERY DAY (DME) OneTouch Ultra Blue Test Strip Strip See Rx Instructions .ROUTE .MEDSUPPLY Qty: 100 2RF Rx Instructions: Test fasting blood sugar every morning. montelukast [Singulair] 10 mg tablet 10 mg PO DAILY Qty: 30 5RF albuterol sulfate 90 mcg/actuation HFA aerosol inhaler 1 inh inhalation Q4H PRN (Reason: shortness of breath or wheezing) Qty: 8.5 0RF ipratropium-albuterol 0.5 mg-3 mg(2.5 mg base)/3 mL solution for nebulization 3 ml INHALATION TID PRN (Reason: shortness of breath or wheezing) Qty: 90 2RF Trelegy Ellipta 200-62.5-25 mcg blister with device 1 inh inhalation DAILY Qty: 60 5RF Farxiga 10 mg tablet 10 mg PO QAM Qty: 90 2RF theophylline 600 mg tablet extended release 24 hr 600 mg PO DAILY Qty: 90 2RF levothyroxine 88 mcg tablet See Rx Instructions .ROUTE .COMPLEX Qty: 90 2RF Dose Instruction: TAKE 1 TABLET BY MOUTH ONCE DAILY Rx Instructions: TAKE 1 TABLET BY MOUTH ONCE DAILY albuterol sulfate 90 mcg/actuation HFA aerosol inhaler 1 puff INHALATION Q4H PRN (Reason: shortness of breath or wheezing) Qty: 8.5 5RF Follow-up/Referrals: Maldonado Robles MD [Primary Care Provider] - Marcelino Whitehead MD [Physician] - Time of Disposition: 16:00
[2024-04-11 12:57] LABS: Alkaline Phosphatase 127 U/L (38-126); Anion Gap 21 mmol/L (4-12); Aspartate Amino Transferase 19 U/L (14-36); Bilirubin,Total 0.7 mg/dL (0.2-1.3); Blood Urea Nitrogen 15 mg/dL (7-17); Calcium 10.7 mg/dL (8.4-10.2); Carbon Dioxide 16 mmol/L (22-30); Chloride 100 mmol/L (98-107); Estimated CRCL calculation 77 ml/min; Estimated Glomerular Filt Rate > 60; Glucose 225 mg/dL (65-110); Lipase 81 U/L (23-300); Potassium 3.8 mmol/L (3.4-5.0); Sodium 137 mmol/L (137-145)
[2024-04-11 12:58] LABS: Alanine Aminotransferase 25 U/L (6-35)
--- NOTE | 2024-04-11 13:19 | PC.NURSE ---
Pt. reports improvement in nausea since zofran administration. Pt. not actively vomiting. VSS on RA.
[2024-04-11 13:21] VITALS: BP 141/68; PULSE 81; RESP 16; O2SAT 100
--- NOTE | 2024-04-11 13:30 | PC.NURSE ---
Pt. states she has had a hysterectomy. CT notified.
[2024-04-11] MEDS: PROCHLORPERAZINE EDISYLATE 10 MG/2 ML VIAL 5 MG IV PUSH (14:41)
[2024-04-11 14:42] VITALS: BP 142/92; PULSE 93; RESP 18; O2SAT 100
[2024-04-11] MEDS: MORPHINE SULFATE (*CRX) 4 MG/ML INJ IV PUSH (14:42)
--- NOTE | 2024-04-11 14:50 | PC.NURSE ---
After morphine administration, pt. oxygen dropped to 78% on RA with good pleth. Pt. in room sleeping. Pt. easily able to wake up and instructed to take deep breathes. 2L applied via NC, bringing oxygen to 97%.
[2024-04-11 15:07] LABS: Lactic Acid Reflex 2.3 mmol/L (0.7-2.0)
[2024-04-11 15:09] LABS: Anion Gap 16 mmol/L (4-12); Blood Urea Nitrogen 13 mg/dL (7-17); Calcium 9.1 mg/dL (8.4-10.2); Carbon Dioxide 18 mmol/L (22-30); Chloride 104 mmol/L (98-107); Estimated CRCL calculation 89 ml/min; Estimated Glomerular Filt Rate > 60; Glucose 167 mg/dL (65-110); Potassium 3.4 mmol/L (3.4-5.0); Sodium 138 mmol/L (137-145)
[2024-04-11] MEDS: SODIUM CHLORIDE 0.9% IV 1,000 ML 150 ML IV CONT (15:21)
[2024-04-11 15:37] LABS: Reflex Lactic Acid Yes or No Add Lactic
[2024-04-11 15:59] VITALS: BP 124/87; PULSE 84; RESP 16; O2SAT 100
--- NOTE | 2024-04-11 16:14 | PC.NURSE ---
Pt. is 100% on RA.
== END 2024-04-11 16:19 | disposition home or self-care (01) ==
PROVIDERS: Emergency Provider Family Medicine; PCP Family Medicine
DX: R11.2 Nausea with vomiting, unspecified (principal); E86.0 Dehydration; R10.84 Generalized abdominal pain; D25.9 Leiomyoma of uterus, unspecified; I10 Essential (primary) hypertension; E11.9 Type 2 diabetes mellitus without complications; F41.9 Anxiety disorder, unspecified; J45.909 Unspecified asthma, uncomplicated; F32.A Depression, unspecified
CPT/HCPCS: 36415; 74177; 80048; 80053; 83605; 83690; 85025; 96361; 96374; 96375; 99284; J0780; J2270; J2405; J7030; Q9967

== ENCOUNTER 2024-07-19 10:58 | Outpatient (CLI) | payer OTHER, SELFPAY ==
--- NOTE | ~2024-07-19 | DEXA_ITS ---
Bone Density Report Name: LEEANN EDMONDS Age: 44 Sex: Female Ethnicity: White Date of : 1980 Indication: height loss; history of glucocorticoids; asthma or emphysema; Referring Provider: Maldonado Robles Study: Bone densitometry was performed. Exam Date: July 19, 2024 Accession number: [id number] Bone Density: Region BMD T-score Z-score Classification AP Spine(L1-L4) 0.976 -0.6 -0.2 Normal Femoral Neck (Left) 0.718 -1.2 -0.7 Osteopenia Total Hip (Left) 0.870 -0.6 -0.3 Normal Femoral Neck (Right) 0.753 -0.9 -0.4 Normal Total Hip (Right) 0.886 -0.5 -0.2 Normal Total Hip Mean 0.878 -0.6 -0.3 Normal World Health Organization criteria for BMD impression classify patients as: Normal (T-score at or above -1.0), Osteopenia (T-score between -1.0 and -2.5), or Osteoporosis (T-score at or below -2.5). 10-year Fracture Risk: FRAX not reported because: Premenopausal woman Clinical Information Provided by Patient: Has taken Glucocorticoids Has used the following medications: Vitamin D, Calcium Has the following medical conditions: Asthma or Emphysema Patient maximum height was 66 No regular weight bearing exercise Does not regularly consume dairy products Onset of menses at age 8 Premenopausal Number of children 3 Impression: The patient's bone mass is within expected range for age, gender and ethnicity. The patient has risk factors, including: history of glucocorticoid therapy. Discussion: BONE DENSITY IS WITHIN EXPECTED LIMITS FOR AGE, SEX AND RACE. Bone density is within expected limits for age, sex and race at all sites measured. The patient should follow a healthful lifestyle (good nutrition with adequate calcium and vitamin D, and appropriate weight-bearing exercise). Follow-Up: Consider repeating this study in 2 to 3 years to reassess this patient's status, or sooner if there is some new clinical indication. Reported by: CARLA on 07/19/2024 11:15:00 AM. Reviewed, dictated and finalized at location A.
== END 2024-07-19 10:59 | disposition home or self-care (01) ==
LOC: MICIMG 10:59
PROVIDERS: PCP Family Medicine; Visit Provider Family Medicine
DX: M85.852 Other specified disorders of bone density and structure, left thigh (principal); Z79.52 Long term (current) use of systemic steroids
CPT/HCPCS: 77080

== ENCOUNTER 2024-08-07 07:00 | Outpatient (NON) | payer OTHER, SELFPAY ==
--- NOTE | 2024-08-07 | S_PTH ---
PATIENT: Manuela Vogel LOC: [facility] U#:[id number] AGE/SX: 44/F ROOM: RE08/07/[address]: Arpit Daily MD : 1980 BED: DIS: 08/07/2024 SPEC #: [id number] RECD: 08/08/24 09:32 STATUS: MAHENDRA REQ #: [id number] RENEE: 08/07/24 00:[address]: Arpit Daily DEPT: [facility] Surgical RECD BY: Hattie Cerna ENTERED: 08/08/24 09:33 SP TYPE: Surgical OTHR DR: Maldonado Robles MD Tissues: A - Gastric Biopsy B - Gastric Biopsy Procedures: Hematoxylin and Eosin Stain Gross and Microscopic Level 4 H.Pylori
--- OUTSIDE RECORDS SUMMARY | 2024-08-08 07:46 | XMS_ITS | Patient Health Record ---
Author Organization [facility] [employer] Address [address] [place] [address] Care Team Providers Care Airline Reservationist Name Role Phone Maldonado Robles MD Primary Care Provider Daina Michaud Unavailable [phone] Martha Bernardo Unavailable [phone] Allergies Allergen (clinical drug ingredient) Drug/Non Drug [...] Theophylline 600 mg Oral *Pick strength-form from [facility] for eRX* 07/07/2023 Active Xolair 150 MG Subcutaneous 07/07/2023 Ac tive Sertraline HCl 100 MG 1 tablet Oral Once a day for 90 days Active Trelegy Ellipta 200-62.5-25 MCG/ACT Inhalation *Pick strength-form from [facility] for eRX* 07/07/2023 Active Venlafaxine HCl ER [...] Active ONE TOUCH LANCETS MISCELLANEOUS *Reorder from [facility] for eRx and Interaction Alerts* 07/07/2023 Active ProAir HFA 108 (90 Base) MCG/ACT Inhalation 07/07/2023 Active busPIRone HCl 15 MG 1 tablet Oral Twice a day for 90 days Active Venlafaxine HCl ER 75 MG 1 capsule with food Orally Once a day for 90 days d/c 37.5 mg dose Active Immunizations Vaccine Route Administration Date Status Comme nts Pneumococcal polysaccharide PPV23 Unknown 02/09/2019 Ad ministered Pneumococcal polysaccharide PPV23 Unknown 09/12/2019 Ad ministered Pneumococcal polysaccharide PPV23 Unknown 08/07/2020 Ad ministered Pneumococcal conjugate PCV 7 Unknown 01/20/2019 Adminis tered Pfizer Biontech Covid-19 Vac cine 2nd dose Unknown 05/05/2020 Administered Pfizer Biontech Covid-19 Vac cine 2nd dose Unknown 05/27/2020 Administered Pfizer Biontech Covid-19 Vac cine 2nd dose Unknown 12/17/2020 Administered Novel [id number], preservative free Unknown 03/06/2018 Administered Influenza, seasonal, injecta ble, preservative free, 3 yrs and above Unknown 01/26/2014 Administered Influenza, injectable, MDCK, preservative free Unknown 01/19/2017 Administered Influenza, injectable, MDCK, preservative free Unknown 12/25/2019 Administered Influenza virus vaccine, quadrivalent (IIV4), split [...] virus, 0.25 mL dosage Unknown 12/23/2020 Administered Hib (PRP-OMP), 3 dose schedule Unknown 02/09/2019 Admin istered Social History Tobacco Use: Social History Observation Description Date Details (start date - stop date) Former Smoker 05/23/1992 - 10/26/2010 Sex Assigned At : Social History Observation Description Sex Assigned At Female Tobacco Control (Standard) Question Answer Notes When did you start smoking? 05/23/1992 When did you stop smoking? 10/26/2010 How long has it been since you last smoked? Heenaa ter than 10 years Tobacco use: Former smoker Problems Problem Type SNOMED Code ICD Code Onset Dates Problem Status W/U Status Risk Notes Problem Mild recurrent major depression (50306253) Major depressive disorder, recurrent, mild (F33.0) Active confirmed Problem Moderate recurrent major depression (16202350) Major depressive disorder, recurrent, moderate (F33.1) 07/07/19 24 Active confirmed Problem Generalized anxiety disorder (98563178) Generalized anxiety disorder (F41.1) 07/07/19 24 Active confirmed Problem Primary insomnia (5615267) Primary insomnia (F51.01) 07/07/19 24 Active confirmed Problem Attention deficit hyperactivity disorder, 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, predominantly inattentive type (F90.0) Active confirmed Problem Attention deficit hyperactivity disorder, combined type (13568092) Attention-deficit hyperactivity disorder, combined type (F90.2) 12/04/19 21 Active confirmed Problem Screening for cardiovascular system disease (433820800) Encounter for screening for cardiovascular disorders (Z13.6) Active confirmed Problem Long-term current use of drug therapy (724714339) 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 (Z79.899) 04/25/20 24 Active confirmed Problem 45073180 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.2) Active confirmed Problem Encounter for screening for depression (Z13.31) Active confirmed Problem 680388396 MDD (major depressive disorder), recurrent episode, mild (F33.0) Active confirmed Problem 496044132 MDD (major depressive disorder), severe (F32.2) Active confirmed Vital Signs Heart Rate 80 /min 08/04/2024 Respiratory Rate 16 /min 11/23/2023 Height-cm 167.64 cm 08/04/2024 Blood pressure diastolic 75 mm Hg 08/04/2024 Weight-kg 69.4 kg 08/04/2024 Height 66.00 in 08/04/2024 Blood pressure systolic 110 mm Hg 08/04/2024 Weight 153 lbs 08/04/2024 BMI 24.69 kg/m2 08/04/2024 Encounters Encounter Location Date Provider Diagnosis [facility] [employer] [facility] [address] [email or web address] [address] [address] 08/17/2023 Martha Hemann Attention-deficit hyperactivity disorder, predominantly inattentive type F90.0 ; Generalized anxiety disorder F41.1 and Major depressive disorder, recurrent, mild F33.0 [facility] [address] [address] 09/01/2023 Martha Hemann Attention-deficit hyperactivity disorder, predominantly inattentive type F90.0 ; Generalized anxiety disorder F41.1 and Major depressive disorder, recurrent, mild F33.0 [facility] [address] [address] 09/20/2023 Daina Ward [facility] [address] [address] 09/22/2023 Martha Hemann Attention-deficit hyperactivity disorder, predominantly inattentive type F90.0 ; Major depressive disorder, recurrent, moderate F33.1 and Generalized anxiety disorder F41.1 [facility] [address] [address] 09/23/2023 Daina Ward Generalized anxiety disorder F41.1 ; MDD (major depressive disorder), recurrent episode, mild F33.0 ; Primary insomnia F51.01 ; 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01 ; 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 Z79.899 and Attention-deficit hyperactivity disorder, combined type F90.2 [facility] [address] [place] [address] 12/14/2023 Martha Hemann Attention-deficit hyperactivity disorder, predominantly inattentive type F90.0 ; Generalized anxiety disorder F41.1 and Major depressive disorder, recurrent, mild F33.0 [facility] [address] [facility] [address] [place] [address] 01/18/2024 Martha Hemann Attention-deficit hyperactivity disorder, predominantly inattentive type F90.0 ; Generalized anxiety disorder F41.1 and Major depressive disorder, recurrent, mild F33.0 [facility] [address] [facility] [address] [place] [address] 02/14/2024 Martha Hemann Attention-deficit hyperactivity disorder, predominantly inattentive type F90.0 ; Generalized anxiety disorder F41.1 and Major depressive disorder, recurrent, mild F33.0 [facility] [address] [facility] [address] [place] [address] 03/07/2024 Martha Hemann Attention-deficit hyperactivity disorder, predominantly inattentive type F90.0 ; Generalized anxiety disorder F41.1 and Major depressive disorder, recurrent, mild F33.0 [facility] [address] [place] [address] 04/04/2024 Daina Ward Generalized anxiety disorder F41.1 ; MDD (major depressive disorder), recurrent episode, mild F33.0 ; Primary insomnia F51.01 ; 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 Z79.899 and Attention-deficit hyperactivity disorder, combined type F90.2 [facility] [address] [place] [address] 04/18/2024 Martha Hemann Attention-deficit hyperactivity disorder, predominantly inattentive type F90.0 ; Generalized anxiety disorder F41.1 and Major depressive disorder, recurrent, mild F33.0 [facility] [address] [place] [address] 05/02/2024 Daina Ward Generalized anxiety disorder F41.1 ; MDD (major depressive disorder), recurrent episode, mild F33.0 ; Primary insomnia F51.01 ; Other skilled nursing (current) drug therapy Z79.899 ; Attention-deficit hyperactivity disorder, combined type F90.2 ; Encounter for screening for depression Z13.31 ; Mixed obsessional thoughts and acts F42.2 and Encounter for screening for cardiovascular disorders Z13.6 [facility] [address] [place] [address] 05/16/2024 Martha Hemann Attention-deficit hyperactivity disorder, predominantly inattentive type F90.0 ; Generalized anxiety disorder F41.1 and Major depressive disorder, recurrent, mild F33.0 [facility] [address] [place] [address] 06/12/2024 Daina Ward Encounter for screen ing for depression Z13.31 ; Generalized anxiety disorder F41.1 ; MDD (major depressive disorder), recurrent episode, mild F33.0 ; Primary insomnia F51.01 ; 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 Z79.899 ; Attention-deficit hyperactivity disorder, combined type F90.2 ; Mixed obsessional thoughts and acts F42.2 and Encounter for screening for cardiovascular disorders Z13.6 [facility] [address] [place] [address] 06/21/2024 Martha Hemann Attention-deficit hyperactivity disorder, predominantly inattentive type F90.0 ; Generalized anxiety disorder F41.1 and Major depressive disorder, recurrent, mild F33.0 [facility] [address] [place] [address] 07/11/2024 Martha Hemann Attention-deficit hyperactivity disorder, predominantly inattentive type F90.0 ; Generalized anxiety disorder F41.1 ; Major depressive disorder, recurrent, mild F33.0 and Encounter for screening for depression Z13.31 [facility] [address] [facility] [address] [place] [address] 08/04/2024 Daina Thery Encounter for screen ing for depression Z13.31 ; MDD (major depressive disorder), severe F32.2 ; Encounter for screening for cardiovascular disorders Z13.6 ; Generalized anxiety disorder F41.1 ; Primary insomnia F51.01 ; 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 Z79.899 ; Attention-deficit hyperactivity disorder, combined type F90.2 and Mixed obsessional thoughts and acts F42.2 [facility] [address] [facility] [address] [place] [address] 04/17/2024 Daina Thery Major depressive disorder, recurrent, mild F33.0 [facility] [address] [address] 04/18/2024 Daina Thery [facility], [facility] [address] [address] 09/20/2023 Daina Thery [facility], [place] [address] [address] 09/21/2023 Daina Thery [facility], [facility] [address] [address] 04/20/2024 Daina Thery [facility], [place] [address] [address] 04/20/2024 Daina Thery [facility], [facility] [address] [address] 05/02/2024 Daina Thery [facility], [place] [address] [address] 05/27/2024 Daina Thery [facility], [facility] [address] [address] 08/01/2024 Daina Thery Assessments Encounter Date Diagnosis (ICD Code) Assessment Notes Treatment Notes Treatment Clinical Notes Section Notes 04/17/2024 Major depressive disorder, recurrent, mild (ICD-10 - F33.0) Electronic Prior Authorization was requested for Fetzima 40 MG Capsule Extended Release 24 Hour. Provider can order medication once approval received. 08/17/2023 Generalized anxiety disorder (ICD-10 - F41.1) 08/17/2023 Attention-deficit hyperactivity disorder, predominantly inattentive type (ICD-10 - F90.0) 09/01/2023 Attention-deficit hyperactivity disorder, predominantly inattentive type (ICD-10 - F90.0) 06/21/2024 Generalized anxiety disorder (ICD-10 - F41.1) [...] improved on Zoloft . Long-term drug therapy 02/14/2024 Generalized anxiety disorder (ICD-10 - F41.1) 02/14/2024 Attention-deficit hyperactivity disorder, predominantly inattentive type (ICD-10 - F90.0) 04/18/2024 Generalized anxiety disorder (ICD-10 - F41.1) [...] therapy monitor 5. Long-term drug therapy 03/07/2024 Generalized anxiety disorder (ICD-10 - F41.1) [...] therapy monitor 5. Long-term drug therapy 11/16/2023 Attention-deficit hyperactivity disorder, predominantly inattentive type (ICD-10 - F90.0) 11/16/2023 Major depressive disorder, recurrent, moderate (ICD-10 - F33.1) 08/04/2024 Encounter for screening for depression (ICD-10 [...] and more. . Long-term drug therapy 07/11/2024 Generalized anxiety disorder (ICD-10 - F41.1) [...] and serotonin syndrome. . Long-term drug therapy 05/16/2024 Generalized anxiety disorder (ICD-10 - F41.1) 05/16/2024 Attention-deficit hyperactivity disorder, predominantly inattentive type (ICD-10 - F90.0) 12/14/2023 Generalized anxiety disorder (ICD-10 - F41.1) [...] caffeine therapy monitor 5. Long-term drug therapy 01/18/2024 Generalized anxiety disorder (ICD-10 - F41.1) 01/18/2024 Attention-deficit hyperactivity disorder, predominantly inattentive type (ICD-10 - F90.0) 09/23/2023 MDD (major depressive disorder), recurrent episode, [...] therapy monitor 5. Long-term drug therapy 09/22/2023 Major depressive disorder, recurrent, moderate (ICD-10 - F33.1) 09/22/2023 Attention-deficit hyperactivity disorder, predominantly inattentive type (ICD-10 - F90.0) 09/22/2023 Generalized anxiety disorder (ICD-10 - F41.1) 12/14/2023 Major depressive disorder, recurrent, mild (ICD-10 - F33.0) 09/23/2023 Primary insomnia (ICD-10 - F51.01) Insomnia: [...] caffeine therapy monitor 5. Long-term drug therapy 01/18/2024 Major depressive disorder, recurrent, mild (ICD-10 [...] caffeine therapy monitor 5. Long-term drug therapy 05/16/2024 Major depressive disorder, [...] and serotonin syndrome. . Long-term drug therapy 07/11/2024 Major depressive disorder, recurrent, mild (ICD-10 - F33.0) 11/16/2023 Generalized anxiety disorder (ICD-10 - F41.1) 08/04/2024 Encounter for screening for cardiovascular disorders [...] antipsychotics) and more. . Long-term drug therapy 04/04/2024 MDD (major [...] disorder, recurrent, mild (ICD-10 - F33.0) 09/01/2023 Generalized anxiety disorder (ICD-10 - F41.1) 05/02/2024 MDD (major depressive disorder), recurrent episode, [...] improved on Zoloft . Long-term drug therapy 04/18/2024 Major depressive disorder, recurrent, mild (ICD-10 [...] improved on Zoloft . 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 Long-term drug therapy 08/04/2024 Generalized anxiety [...] antipsychotics) and more. . Long-term drug therapy 11/23/2023 Primary insomnia (ICD-10 [...] therapy monitor 5. Long-term drug therapy 06/12/2024 MDD (major depressive [...] serotonin syndrome. . 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 Long-term drug therapy 09/23/2023 Attention-deficit hyperactivity disorder, [...] therapy monitor 5. Long-term drug therapy 06/12/2024 Primary insomnia (ICD-10 [...] and serotonin syndrome. . Long-term drug therapy 07/11/2024 Encounter for screening for depression (ICD-10 - Z13.31) 08/04/2024 Primary insomnia (ICD-10 - F51.01) Insomnia: [...] antipsychotics) and more. . Long-term drug therapy 04/04/2024 Other skilled nursing [...] monitor 5. 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 Long-term drug therapy 05/02/2024 Attention-deficit hyperactivity disorder, combined type (ICD-10 [...] improved on Zoloft . Long-term drug therapy 05/02/2024 Encounter for [...] on Zoloft . Long-term drug therapy 04/04/2024 Attention-deficit hyperactivity disorder, [...] monitor 5. Long-term drug therapy 08/04/2024 Other skilled nursing [...] and more. . 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 . Long-term drug therapy 06/12/2024 Attention-deficit hyperactivity [...] serotonin syndrome. . Long-term drug therapy 08/04/2024 Attention-deficit hyperactivity [...] on Zoloft . Long-term drug therapy 06/12/2024 Mixed obsessional [...] 08/24/2024 02:15:00 PM, [address], [facility] [address], [address], Provider Name:Martha Bernardo, 09/05/2024 11:00:00 AM, [address] [place], [address], Provider Name:Daina Ward , 09/11/2024 09:00:00 AM, [address] [place], [address], Insurance Providers Payer Name Payer Address Payer Phone Subscriber Number Group Number Insured Name Patient Relationship to Insured Coverage Start Date Coverage End Date [facility] [address] [place] [address] [id number] LEEANN MARIA Self - patient is the insured Medical (General) History Medical History History ICD Code Problems: Abnormal grief reaction Attention deficit hyperactivity disorder Attention deficit hyperactivity disorder , predominantly inattentive type Generalized anxiety disorder Long-term drug therapy Mild recurrent major depression Moderate recurrent major depression Primary insomnia , Surgical History Surgery Date(Month/Year) Removal of gallbladder (99732) Cholecystectomy (61133829) Ligation of bilateral fallopian tubes (2 [id number]) Removal of gallbladder (99754) 9
--- OUTSIDE RECORDS SUMMARY | 2024-08-08 07:46 | XMS_ITS | Clinical Summary ---
Author Organization [facility] Address [address] [place] [address] Care Team Providers Care Puttier Name Role Phone Maldonado Robles MD Primary Care Provider [phone] Source Comments [facility],non-owned Affiliates and Associated Physician Practices is amultiple site organization consisting of ambulatory clinics and hospital sitesin [place], [place], [place] and [place]. This disclosure is being madepursuant to the Care Everywhere program and may not contain all information available regarding this patient. 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
--- OUTSIDE RECORDS SUMMARY | 2024-08-08 07:46 | XMS_ITS | Clinical Summary ---
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
--- OUTSIDE RECORDS SUMMARY | 2024-08-08 07:46 | XMS_ITS | Referral Summary ---
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
--- OUTSIDE RECORDS SUMMARY | 2024-08-08 07:47 | XMS_ITS | Patient Health Record ---
Author Organization [facility] [employer] [place] ([address]) Address [address] [place] [address] Care Team Providers Care Door Maker Name Role Phone Maldonado Robles MD Primary Care Provider UnavailPrincess Tee Unavailable [phone] Cruz Abel Unavailable [phone] Allergies Allergen (clinical drug ingredient) Drug/Non Drug Allergy documented on EMR Reaction Allergy Type Onset Date Status dexamethasone dexAMETHasone skin changes Drug Allergy Active Results Component Value Reference Range Notes Spirometry Reviewed date:03/16/2024 01:30:24 PM Interpretation:Abnormal Performing Lab: Notes/Report: Abnormal SpiroPreBronchodilator_FVC 3.7 SpiroPostBronchodilator_FEF 25_75 0 SpiroPreBronchodilator_FEF2 5_75 1.06 SpiroPreBronchodilator_FEV1 2.18 SpiroPrecentPredictionPost_ XKI24_29 0 SpiroPrecentPredictionPost_ FEV1 0 SpiroPrecentPredictionPost_ FEV1_OVER_FVC 0 SpiroPrecentPredictionPost_ FVC 0 SpiroPrecentPredictionPre_F EF25_75 33.2 SpiroPrecentPredictionPre_F EV1 72.4 SpiroPrecentPredictionPre_F EV1_OVER_FVC 72.4 SpiroPrecentPredictionPre_F VC 100.8 SpiroPredicted_FEF25_75 3.19 SpiroPreBronchodilator_FEV1 _OVER_FVC 58.92 SpiroPreBronchodilator_PEF 5.63 SpiroPostBronchodilator_FVC 0 SpiroPostBronchodilator_FEV 1 0 SpiroPostBronchodilator_FEV 1_OVER_FVC 0 SpiroPostBronchodilator_PEF 0 SpiroPredicted_FVC 3.67 SpiroPredicted_FEV1 3.01 SpiroPredicted_FEV1_OVER_FV C 81.38 SpiroPredicted_PEF 6.35 COMPREHENSIVE METABOLIC PANE L Reviewed date:06/01/2024 07:44:01 AM Interpretation:Abnormal Performing Lab:[place], [facility], [address], [place], [address] Marielena Altman MD Notes/Report: NON-FASTING; NON-FASTING; NON-FASTING [...] Reviewed date:06/13/2024 08:38:17 AM Interpretation:Abnormal Performing Lab:[facility], [facility] [address] [facility], [address], [place], [address] Mohammad Q Margarita Notes/Report: NON-FASTING FASTING:YES FASTING: YES VITAMIN D, 25-OH, TOTAL 27.7 >29.9 ng/mL This test was developed and its analytical performance characteristics have been determined by [facility]. It has not been cleared or approved [...] analytical performance characteristics have been determined by [facility]. It has not been cleared or approved by the FDA. This assay has been validated pursuant to the CLIA regulations and is used for clinical purposes. VITAMIN D, 25-OH, D2 <1.0 This test was developed and its analytical performance characteristics have been determined by [facility]. It has not been cleared or approved by the FDA. This assay has been validated pursuant to the CLIA regulations and is used for clinical purposes. IMMUNOGLOBULIN G Reviewed date:06/01/2024 07:43:45 AM Interpretation:Normal Performing Lab:[facility], [facility], [address] [place], [address] Marielena Altman MD Notes/Report: NON-FASTING; NON-FASTING; NON-FASTING FASTING:YES FASTING: YES IMMUNOGLOBULIN G 3491 677-8508 mg/dL CBC (INCLUDES DIFF/PLT) Reviewed date:06/01/2024 07:43:14 AM Interpretation:Abnormal Performing Lab:[place], [facility], [address], [place], [address] Marielena Altman MD Notes/Report: NON-FASTING; NON-FASTING; NON-FASTING [...] MPV 10.5 7.5-12.5 fL ABSOLUTE NEUTROPHILS 4659 8236-7678 cells/uL ABSOLUTE LYMPHOCYTES 996 834-5700 cells/uL ABSOLUTE MONOCYTES 646 200-950 cells/uL ABSOLUTE EOSINOPHILS 58 15-500 cells/uL ABSOLUTE BASOPHILS 51 0-200 cells/uL NEUTROPHILS 72.8 LYMPHOCYTES 15.4 MONOCYTES 10.1 EOSINOPHILS 0.9 BASOPHILS 0.8 Spirometry Reviewed date:06/01/2024 04:01:33 PM Interpretation:Abnormal Performing Lab: Notes/Report: Abnormal SpiroPreBronchodilator_FVC 3.53 SpiroPostBronchodilator_FEF 25_75 0 SpiroPreBronchodilator_FEF2 5_75 0.94 SpiroPreBronchodilator_FEV1 2 SpiroPrecentPredictionPost_ PWP14_31 0 SpiroPrecentPredictionPost_ FEV1 0 SpiroPrecentPredictionPost_ FEV1_OVER_FVC 0 [...] review and pick correct strength-formula tion from [employer] options. If intended option is not shown, [...] review and pick correct strength-formula tion from [employer] options. If intended option is not shown, discontinue and re-order from Quick Search* Active BUSPAR 10mg twice a day *Please review for potential replacement for e-prescription and drug interaction check* Active Fetzima 40 MG 1 cap(s) orally once a day for 30 days Not-Taking Vitamin D3 *Please review and pick correct strength-formula tion from [employer] options. If intended option is not shown, [...] review and pick correct strength-formula tion from [employer] options. If intended option is not shown, discontinue and re-order from Quick Search* Active Pneumovax 23 - 0.5 ML INTRAMUSCULARLY ONCE for 1 DOSE(S) *Please review and pick correct strength-formula tion from [employer] options. 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) Active confirmed Problem Hypothyroidism (71234180) Hypothyroidism, unspecified (E03.9) Active confirmed Problem Type II diabetes mellitus without complication (330584759) Type 2 diabetes mellitus without complications (E11.9) Active confirmed Problem Generalized anxiety disorder (54795469) Generalized anxiety disorder (F41.1) Active confirmed Problem Chronic allergic conjunctivitis (96035063) Other chronic allergic conjunctivitis (H10.45) Active confirmed Problem Allergic rhinitis caused by pollen (disorder) (28246704) Allergic rhinitis due to pollen (J30.1) Active confirmed Problem Allergic rhinitis (75713923) Other allergic rhinitis (J30.89) Active confirmed Problem Uncomplicated severe persistent asthma (598728826) Severe persistent asthma, uncomplicated (J45.50) Active confirmed Problem Allergic rhinitis caused by pollen (disorder) (70739852) Allergic rhinitis due to pollen (J30.1) Active confirmed Problem Allergic rhinitis caused by animal hair and dander (525667537549282) Allergic rhinitis due to animal (cat) (dog) hair and dander (J30.81) Active confirmed Problem Allergic rhinitis (03614827) Other allergic rhinitis (J30.89) Active confirmed Problem Uncomplicated severe persistent asthma (559807227) Severe persistent asthma, uncomplicated (J45.50) Active confirmed Problem Dysphagia (56764533) Dysphagia, unspecified (R13.10) Active confirmed Problem Chronic sinusitis (97759362) Chronic sinusitis, unspecified (J32.9) Active confirmed Problem Chronic obstructive pulmonary disease (84147625) Chronic obstructive pulmonary disease, unspecified (J44.9) Active confirmed Problem History of pneumonia (046694518) Personal history of pneumonia (recurrent) (Z87.01) Active confirmed Vital Signs Respiratory Rate 17 /min 06/01/2024 Blood pressure diastolic 71 mm Hg 07/13/2024 Oximetry 99 % 07/13/2024 Height 66 in 07/13/2024 Blood pressure systolic 114 mm Hg 07/13/2024 Weight 152.8 lbs 06/01/2024 BMI 24.66 kg/m2 06/01/2024 Encounters Encounter Location Date Provider Diagnosis [address] [address] 09/02/2023 Cruz Abel Severe persistent as thma, uncomplicated J45.[address] [address] 09/08/2023 Cruz Abel Allergic rhinitis du e to pollen J30.1 ; Other allergic rhinitis J30.89 ; Allergic rhinitis due to animal (cat) (dog) hair and dander J30.81 and Other chronic allergic conjunctivitis H10.[address] [address] 10/06/2023 Cruz Abel Allergic rhinitis du e to pollen J30.1 ; Other allergic rhinitis J30.89 ; Allergic rhinitis due to animal (cat) (dog) hair and dander J30.81 and Other chronic allergic conjunctivitis H10.[address] [address] 10/28/2023 Princess Crawford Severe persistent as thma, [...] deficiency, unspecified E55.9 and Dysphagia, unspecified R13.10 [facility] [address] [place] [address] [address] [address] 11/09/2023 Cruz Colten Allergic rhinitis du e to pollen J30.1 ; Other allergic rhinitis J30.89 ; Allergic rhinitis due to animal (cat) (dog) hair and dander J30.81 and Other chronic allergic conjunctivitis H10.45 [facility] [address] [place] [address] [facility] [address] [address] 11/25/2023 Cruz Abel Severe persistent as thma, uncomplicated J45.[address] [address] 12/07/2023 Cruz Abel Allergic rhinitis du e to pollen J30.1 ; Other allergic rhinitis J30.89 ; Allergic rhinitis due to animal (cat) (dog) hair and dander J30.81 and Other chronic allergic conjunctivitis H10.45 [facility] [address] [place] [address] [facility] [address] [address] 12/23/2023 Cruz Abel Severe persistent as thma, uncomplicated J45.50 [facility] [address] [place] [address] 01/04/2024 Cruz Abel Allergic rhinitis du e to pollen J30.1 ; Other allergic rhinitis J30.89 ; Allergic rhinitis due to animal (cat) (dog) hair and dander J30.81 and Other chronic allergic conjunctivitis H10.45 [facility] [address] [place] [address] 01/24/2024 Cruz Abel Severe persistent as thma, uncomplicated J45.[address] [facility] [address] [address] 02/01/2024 Cruz Abel Allergic rhinitis du e to pollen J30.1 ; Other allergic rhinitis J30.89 ; Allergic rhinitis due to animal (cat) (dog) hair and dander J30.81 and Other chronic allergic conjunctivitis H10.45 [facility] [address] [place] [address] [address] [place] [address] 02/21/2024 Crzu Abel Severe persistent as thma, uncomplicated J45.50 [facility] [address] [place] [address] 03/16/2024 Princess Crawford Severe persistent as thma, [...] deficiency, unspecified E55.9 and Dysphagia, unspecified R13.[address] [address] 03/23/2024 Cruz Abel Severe persistent as thma, uncomplicated J45.[address] [address] 04/13/2024 Cruz Abel Allergic rhinitis du e to pollen J30.1 ; Other allergic rhinitis J30.89 ; Allergic rhinitis due to animal (cat) (dog) hair and dander J30.81 and Other chronic allergic conjunctivitis H10.[address] [address] 04/20/2024 Cruz Abel Severe persistent as thma, uncomplicated J45.50 [facility] [address] [place] [address] [address] 04/27/2024 Cruz Abel Allergic rhinitis du e to pollen J30.1 ; Other allergic rhinitis J30.89 ; Allergic rhinitis due to animal (cat) (dog) hair and dander J30.81 and Other chronic allergic conjunctivitis H10.[address] [address] 05/18/2024 Cruz Colten Allergic rhinitis du e to pollen J30.1 ; Other allergic rhinitis J30.89 ; Allergic rhinitis due to animal (cat) (dog) hair and dander J30.81 and Other chronic allergic conjunctivitis H10.45 [facility] [address] [place] [address] [address] 05/24/2024 Cruz Abel Allergic rhinitis du e to pollen J30.1 ; Other allergic rhinitis J30.89 ; Allergic rhinitis due to animal (cat) (dog) hair and dander J30.81 and Other chronic allergic conjunctivitis H10.[address] [address] 05/31/2024 Cruz Abel Allergic rhinitis du e to pollen J30.1 ; Other allergic rhinitis J30.89 ; Allergic rhinitis due to animal (cat) (dog) hair and dander J30.81 and Other chronic allergic conjunctivitis H10.[address] [facility] [address] [address] 06/01/2024 Princess Young Severe persistent as thma, [...] deficiency, unspecified E55.9 and Dysphagia, unspecified R13.10 [facility] [address] [place] [address] [address] 06/15/2024 Cruz Abel Severe persistent as thma, uncomplicated J45.[address] [facility] [address] [address] 06/28/2024 Cruz Abel Allergic rhinitis du e to pollen J30.1 ; Other allergic rhinitis J30.89 ; Allergic rhinitis due to animal (cat) (dog) hair and dander J30.81 and Other chronic allergic conjunctivitis H10.[address] [facility] [address] [address] 07/13/2024 Cruz Abel Severe persistent as thma, uncomplicated J45.50 [facility] [address] [place] [address] 07/26/2024 Cruz Abel Allergic rhinitis du e to pollen J30.1 ; Other allergic rhinitis J30.89 ; Allergic rhinitis due to animal (cat) (dog) hair and dander J30.81 and Other chronic allergic conjunctivitis H10.[address] [address] 03/16/2024 Princess Crawford [facility] [address] [facility] [place] [address] 03/16/2024 Princess Crawford [facility] [place] [address] [facility] [place] [address] 01/27/2024 Princess Crawford [facility] [place] [address] [facility] [place] [address] 03/06/2024 Princess Crawford [facility] [place] [address] [facility] [place] [address] 03/09/2024 Princess Crawford [facility] [place] [address] [facility] [place] [address] 03/27/2024 Princess Crawford Assessments Encounter Date Diagnosis [...] NOT standard of care. Since resuming in [facility] she has not been sick. Continue Xembify [...] NOT standard of care. Since resuming in [facility] she has not been sick. Continue Xembify [...] to last check. Recommend Dr. Alva or [facility] Pulmonary group - Talk to pulmonary [...] du e to pollen (ICD-10 - J30.1) Manueal clearly suffers from atopic disease based upon [...] Name:Cruz Abel , 08/10/2024 08:00:00 AM, [address], [address], [place], [address], Provider Name:Cruz Abel , 08/23/2024 08:00:00 AM, [address], [address], [place], [address], Provider Name:Princess Crawford , 09/21/2024 09:30:00 AM, [address], [address], [place], [address], Insurance Providers Payer Name Payer Address Payer Phone Subscriber Number Group Number Insured Name Patient Relationship to Insured Coverage Start Date Coverage End Date [facility] [address] [address] [place] [address] [id number] Manuela Adams i Self - patient is the insured 5 [employer] [address] [place] [address] [id number] Manuela Adams i Self - patient is [...]
--- OUTSIDE RECORDS SUMMARY | 2024-08-08 08:13 | XMS_ITS | Referral Summary ---
Author Organization 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
--- OUTSIDE RECORDS SUMMARY | 2024-08-08 08:13 | XMS_ITS | Clinical Summary ---
Author Organization [facility] Address [address] [facility] [place] [address] Care Team Providers Care Neurology Hospitalist Name Role Phone Maldonado Robles MD Primary Care Provider [phone] Source Comments [facility],non-owned Affiliates and Associated Physician Practices is amultiple site organization consisting of ambulatory clinics and hospital sitesin [place], [place], [place] and [place]. This disclosure is being madepursuant to the Care Everywhere program and may not contain all information available regarding this patient. 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
--- OUTSIDE RECORDS SUMMARY | 2024-08-08 08:13 | XMS_ITS | Clinical Summary ---
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
== END 2024-08-07 07:01 | disposition home or self-care (01) ==
LOC: ANHLAB 08-08 08:06
PROVIDERS: PCP Family Medicine; Visit Provider Internal Medicine Gastroenterology
DX: K29.50 Unspecified chronic gastritis without bleeding (principal); K31.89 Other diseases of stomach and duodenum; R12 Heartburn
CPT/HCPCS: 88305; 88342

== ENCOUNTER 2024-08-07 10:54 | Day surgery (SDC) | payer OTHER, SELFPAY ==
[2024-05-31 10:13] VITALS: BMI 24.5
[2024-08-07 11:35] VITALS: BMI 24.5
[2024-08-07 11:36] VITALS: BP 111/79; PULSE 71; RESP 16; TEMP 37.6; O2SAT 99
[2024-08-07 11:48] LABS: Glucose Point of Care 98 mg/dl (65-105)
[2024-08-07] MEDS: LACTATED RINGERS 1,000 ML 150 ML IV CONT (11:49)
--- NOTE | 2024-08-07 12:01 | P.PNAN_ITS ---
Anes - Eval Pre Procedure Procedure: Operation Date: 08/07/24 12:30 Proposed Procedures p Esophagogastroduodenoscopy - Arpit Daily MD Date/Time: 08/07/24 12:01 Surgeon: Killian Pre Op Diagnosis: Nausea w/Vomiting, Epigastric Pain Patient Data Age: 44 Gender: F Height: 1.68 m Weight: 68.9 kg Last Vital Signs Temp 37.6 C 08/07/24 11:36 Pulse 71 08/07/24 11:36 Resp 16 08/07/24 11:36 BP 111/79 08/07/24 11:36 Pulse Ox 99 08/07/24 11:36 O2 Del Method Room Air 08/07/24 11:36 Allergies Allergy/AdvReac Type Severity Reaction Status Date / Time citalopram AdvReac Mild Abdominal Verified 08/07/24 11:21 Pain dexamethasone AdvReac Unknown weight gain Verified 08/07/24 11:21 Home Medications ?Medication ?Instructions ?Recorded ?Confirmed ?Type azelastine 137 mcg-fluticasone 50 2 spray intranasal BID 08/24/19 08/07/24 History mcg/spray nasal spray famotidine 40 mg tablet 40 mg PO .COMPLEX 08/24/19 08/01/24 History lancets (OneTouch UltraSoft #100 ea 09/29/19 08/01/24 Rx Lancets) blood sugar diagnostic (OneTouch #100 ea 07/15/20 08/01/24 Rx Ultra Blue Test Strip) montelukast 10 mg tablet 10 mg PO DAILY #30 tabs 10/02/20 08/07/24 Rx (Singulair) immune globulin,gamma(IgG)klhw 1 5,748 mg (28.74 mL) subcut WEEKLY 11/11/22 08/07/24 Rx gram/5 mL (20%) subcut solution #5 mL (Xembify) omeprazole 20 mg capsule,delayed 20 mg PO DAILY 1 month #30 caps 11/23/23 08/01/24 Rx release theophylline 600 mg 600 mg PO DAILY #90 tabs 02/02/24 08/07/24 Rx tablet,extended release 24 hr levothyroxine 88 mcg tablet See Rx Instructions .Route 02/14/24 08/07/24 Rx .COMPLEX #90 tabs blood-glucose sensor (FreeStyle #2 ea 04/13/24 08/01/24 Rx [place] 3 Sensor device) blood-glucose,an employee sponsor or advocate and,cont #1 ea 04/13/24 08/01/24 Rx (FreeStyle [place] 3 [place]) empagliflozin 25 mg tablet 25 mg PO DAILY #90 tabs 04/13/24 08/07/24 Rx (Jardiance) fluticasone fur. 200 mcg-umeclid 1 inh inhalation DAILY #60 ea 05/26/24 08/07/24 Rx 62.5 mcg-vilant 25 mcg inhalat.powder (Trelegy Ellipta) metformin 500 mg tablet,extended See Rx Instructions .Route 05/30/24 08/07/24 Rx release 24 hr .COMPLEX #180 tabs Airsupra 90 mcg-80 mcg/actuation 2 inh inhalation ONCE 30 days 07/20/24 08/07/24 Rx HFA aerosol inhaler #10.7 grams (albuterol-budesonide) Lactobacillus acidophilus 10 10,000 mmu cells PO DAILY 07/20/24 08/07/24 History billion cell capsule (Probacap) buspirone 15 mg tablet 15 mg PO BID 07/20/24 08/07/24 History cetirizine 10 mg capsule (All Day 10 mg PO DAILY 07/20/24 08/07/24 History Allergy (cetirizine)) cholecalciferol (vitamin D3) 125 125 mcg PO DAILY 07/20/24 08/07/24 History mcg (5,000 unit) capsule sertraline 100 mg tablet 100 mg PO DAILY 07/20/24 08/07/24 History trazodone 50 mg tablet 50 mg PO QHS PRN insomnia 07/20/24 08/07/24 History venlafaxine 75 mg capsule,extended 75 mg PO DAILY 07/20/24 08/07/24 History release 24 hr Laboratory Tests 08/07/24 11:45 POC Capillary Glucose 98 mg/dl (65-105) Patient hx anesthesia problems: none Family hx anesthesia problems: none Results Review: All pre-operative results and documents have been reviewed as part of the pre- operative evaluation. [facility] Past Medical History Medical History Frequent loose stools Dysphagia Heartburn HTN (hypertension) Obesity Elevated blood pressure reading Type 2 diabetes mellitus without complications Anxiety Obesity (BMI 30.0-34.9) Weight gain Asthma Depression Controlled diabetes mellitus type II without complication Family History Family History Father Asthma Family history of emphysema, Onset Age: 69 Mother Asthma Family history of arthritis Grandparent Carcinoma of colon, Onset Age: 88 Other Diabetes mellitus Family history of cardiovascular disease Family history of malignant neoplasm Family history of malignant neoplasm of urinary bladder Social History Social History Social History: Smoking packs per day: 1 Smoking cigarettes per day: 20.0 Years smoked: 16 Smoking pack-years: 16.00 Smoking status: Former smoker Tobacco type: cigarettes Second hand tobacco smoke exposure: No Smoking end date: 02/22/10 Alcohol intake: never Substance use: never Substance use type: does not use Do You Feel Safe in your Home?: Yes Lack of Transportation: No Lack of Food: Never True Current Housing: I Have Housing Concerned About Future Housing: No Difficulty Paying Gas/Electric Bills: No Difficulty Paying for Meds: No Currently Unemployed: No Education: Don't Know Difficulty w/ Childcare or Family Care: No Living arrangements: with family Occupation/Education: occupation Gender identity (if verbalized by the patient): Female Sexual Orientation (if Verbalized by the Patient): Straight or Heterosexual Spiritual care concerns: No Exam Day of Procedure 08/07/24 12:01
--- NOTE | 2024-08-07 12:12 | P.PNAN_ITS ---
Anes - Eval Pre Procedure Procedure: Operation Date: 08/07/24 12:30 Proposed Procedures p Esophagogastroduodenoscopy - Arpit Daily MD Date/Time: 08/07/24 12:12 Surgeon: eddie Pre Op Diagnosis: Nausea w/Vomiting, Epigastric Pain Patient Data Age: 44 Gender: F Height: 1.68 m Weight: 68.9 kg Last Vital Signs Temp 99.6 F 08/07/24 11:36 Pulse 71 08/07/24 11:36 Resp 16 08/07/24 11:36 BP 111/79 08/07/24 11:36 Pulse Ox 99 08/07/24 11:36 O2 Del Method Room Air 08/07/24 11:36 Allergies Allergy/AdvReac Type Severity Reaction Status Date / Time citalopram AdvReac Mild Abdominal Verified 08/07/24 11:21 Pain dexamethasone AdvReac Unknown weight gain Verified 08/07/24 11:21 Home Medications ?Medication ?Instructions ?Recorded ?Confirmed ?Type azelastine 137 mcg-fluticasone 50 2 spray intranasal BID 08/24/19 08/07/24 History mcg/spray nasal spray famotidine 40 mg tablet 40 mg PO .COMPLEX 08/24/19 08/01/24 History lancets (OneTouch UltraSoft #100 ea 09/29/19 08/01/24 Rx Lancets) blood sugar diagnostic (OneTouch #100 ea 07/15/20 08/01/24 Rx Ultra Blue Test Strip) montelukast 10 mg tablet 10 mg PO DAILY #30 tabs 10/02/20 08/07/24 Rx (Singulair) immune globulin,gamma(IgG)klhw 1 5,748 mg (28.74 mL) subcut WEEKLY 11/11/22 08/07/24 Rx gram/5 mL (20%) subcut solution #5 mL (Xembify) omeprazole 20 mg capsule,delayed 20 mg PO DAILY 1 month #30 caps 11/23/23 08/01/24 Rx release theophylline 600 mg 600 mg PO DAILY #90 tabs 02/02/24 08/07/24 Rx tablet,extended release 24 hr levothyroxine 88 mcg tablet See Rx Instructions .Route 02/14/24 08/07/24 Rx .COMPLEX #90 tabs blood-glucose sensor (FreeStyle #2 ea 04/13/24 08/01/24 Rx [place] 3 Sensor device) blood-glucose,welder setter electron beam machine,cont #1 ea 04/13/24 08/01/24 Rx (FreeStyle [place] 3 [place]) empagliflozin 25 mg tablet 25 mg PO DAILY #90 tabs 04/13/24 08/07/24 Rx (Jardiance) fluticasone fur. 200 mcg-umeclid 1 inh inhalation DAILY #60 ea 05/26/24 08/07/24 Rx 62.5 mcg-vilant 25 mcg inhalat.powder (Trelegy Ellipta) metformin 500 mg tablet,extended See Rx Instructions .Route 05/30/24 08/07/24 Rx release 24 hr .COMPLEX #180 tabs Airsupra 90 mcg-80 mcg/actuation 2 inh inhalation ONCE 30 days 07/20/24 08/07/24 Rx HFA aerosol inhaler #10.7 grams (albuterol-budesonide) Lactobacillus acidophilus 10 10,000 mmu cells PO DAILY 07/20/24 08/07/24 History billion cell capsule (Probacap) buspirone 15 mg tablet 15 mg PO BID 07/20/24 08/07/24 History cetirizine 10 mg capsule (All Day 10 mg PO DAILY 07/20/24 08/07/24 History Allergy (cetirizine)) cholecalciferol (vitamin D3) 125 125 mcg PO DAILY 07/20/24 08/07/24 History mcg (5,000 unit) capsule sertraline 100 mg tablet 100 mg PO DAILY 07/20/24 08/07/24 History trazodone 50 mg tablet 50 mg PO QHS PRN insomnia 07/20/24 08/07/24 History venlafaxine 75 mg capsule,extended 75 mg PO DAILY 07/20/24 08/07/24 History release 24 hr Laboratory Tests 08/07/24 11:45 POC Capillary Glucose 98 mg/dl (65-105) Patient hx anesthesia problems: none Family hx anesthesia problems: none Results Review: All pre-operative results and documents have been reviewed as part of the pre- operative evaluation. [facility] Past Medical History Medical History Frequent loose stools Dysphagia Heartburn HTN (hypertension) Obesity Elevated blood pressure reading Type 2 diabetes mellitus without complications Anxiety Obesity (BMI 30.0-34.9) Weight gain Asthma Depression Controlled diabetes mellitus type II without complication Family History Family History Father Asthma Family history of emphysema, Onset Age: 69 Mother Asthma Family history of arthritis Grandparent Carcinoma of colon, Onset Age: 88 Other Diabetes mellitus Family history of cardiovascular disease Family history of malignant neoplasm Family history of malignant neoplasm of urinary bladder Social History Social History Social History: Smoking packs per day: 1 Smoking cigarettes per day: 20.0 Years smoked: 16 Smoking pack-years: 16.00 Smoking status: Former smoker Tobacco type: cigarettes Second hand tobacco smoke exposure: No Smoking end date: 02/22/10 Alcohol intake: never Substance use: never Substance use type: does not use Do You Feel Safe in your Home?: Yes Lack of Transportation: No Lack of Food: Never True Current Housing: I Have Housing Concerned About Future Housing: No Difficulty Paying Gas/Electric Bills: No Difficulty Paying for Meds: No Currently Unemployed: No Education: Don't Know Difficulty w/ Childcare or Family Care: No Living arrangements: with family Occupation/Education: occupation Gender identity (if verbalized by the patient): Female Sexual Orientation (if Verbalized by the Patient): Straight or Heterosexual Spiritual care concerns: No Comments asa 3 Exam Day of Procedure 08/07/24 12:12 Heart: regular rate and rhythm Lungs: normal air movement Airway: Mallampati scale class II
--- OUTSIDE RECORDS SUMMARY | 2024-08-07 12:20 | XMS_ITS | Referral Summary ---
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 [address] [place] [address] PCP - General Family Medicine 08/16/19
--- OUTSIDE RECORDS SUMMARY | 2024-08-07 12:20 | XMS_ITS | Patient Health Record ---
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 Name Role Phone Maldonado Robles MD Primary Care Provider Daina Michaud Unavailable [phone] Martha Bernardo Unavailable [phone] Allergies Allergen (clinical drug ingredient) Drug/Non Drug Allergy documented on EMR Reaction Allergy Type Onset Date Status dexamethasone dexAMETHasone Unknown Drug Allergy Active citalopram Citalopram Unknown Drug Allergy 06/17/2023 Acti ve Reason For Referral No Information Medications Medication SIG (Take, Route, Frequency, Duration) Notes Start Date End Date Status traZODone HCl 50 MG 1 tablet at bedtime Oral at bedtime for 90 days Active QUEtiapine Fumarate 50 MG 1 tablet at bedtime Orally Once a day for 30 days 08/04/2024 Active QUEtiapine Fumarate 25 MG TAKE 1 TABLET BY MOUTH EVERY DAY AT BEDTIME FOR 30 DAYS Oral see sign for 7 days 08/04/2024 Active OneTouch Ultra Blue In Vitro 07/07/2023 Active metFORMIN HCl ER 500 MG Oral 07/07/2023 Active OneTouch Ultra In Vitro 07/07/2023 Acti ve Auvi-Q 0.3 MG/0.3ML Injection 07/07/2023 Active Farxiga 10 MG Oral 07/07/2023 Activ e Famotidine 40 MG Oral 07/07/2023 Ac tive Azelastine HCl 137 MCG/SPRAY Nasal 07/07/2023 Active Theophylline 600 mg Oral *Pick strength-form from [facility] for eRX* 07/07/2023 Active Xolair 150 MG Subcutaneous 07/07/2023 Ac tive Sertraline HCl 100 MG 1 tablet Oral Once a day for 90 days Active Trelegy Ellipta 200-62.5-25 MCG/ACT Inhalation *Pick strength-form from [facility] for eRX* 07/07/2023 Active Venlafaxine HCl ER 75 MG 1 capsule with food Orally Once a day for 30 day(s) Active Ipratropium-Albutero l 0.5-2.5 (3) MG/3ML Inhalation 07/07/2023 Active busPIRone HCl 15 MG TAKE 1 TABLET BY MOUTH THREE TIMES A DAY WITH MEALS FOR ANXIETY 90 for 90 Active Levothyroxine Sodium 112 MCG Oral 07/07/2023 Active Lisinopril 5 MG 1 tablet Oral daily 07/07/2023 Active Montelukast Sodium 10 MG Oral 07/07/2023 Active ONE TOUCH LANCETS MISCELLANEOUS *Reorder from [facility] for eRx and Interaction Alerts* 07/07/2023 Active ProAir HFA 108 (90 Base) MCG/ACT Inhalation 07/07/2023 Active busPIRone HCl 15 MG 1 tablet Oral Twice a day for 90 days Active Venlafaxine HCl ER 75 MG 1 capsule with food Orally Once a day for 90 days d/c 37.5 mg dose Active Immunizations Vaccine Route Administration Date Status [...] yrs and above Unknown 01/26/2014 Administered Novel [id number], preservative free Unknown 03/06/2018 Administered Pfizer Biontech [...] (start date - stop date) Former Smoker 05/23/1992 - 10/26/2010 Sex Assigned At : Social History Observation Description Sex Assigned At Female Tobacco Control (Standard) Question Answer Notes When did you start smoking? 05/23/1992 When did you stop smoking? 10/26/2010 How long has it been since you last smoked? Grea ter than 10 years Tobacco use: Former smoker Problems Problem Type SNOMED Code ICD Code Onset Dates Problem Status W/U Status Risk Notes Problem Mild recurrent major depression (77358737) Major depressive disorder, recurrent, mild (F33.0) Active confirmed Problem Moderate recurrent major depression (15100428) Major depressive disorder, recurrent, moderate (F33.1) 07/07/19 Active confirmed Problem Generalized anxiety disorder (84511346) Generalized anxiety disorder (F41.1) 07/07/19 Active confirmed Problem Primary insomnia (7234135) Primary insomnia (F51.01) 07/07/19 24 Active confirmed Problem Attention deficit hyperactivity disorder, predominantly inattentive type (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) Attention-deficit hyperactivity disorder, predominantly inattentive type (F90.0) Active confirmed Problem Attention deficit hyperactivity disorder, combined type (19495371) Attention-deficit hyperactivity disorder, combined type (F90.2) 12/04/19 21 Active confirmed Problem Screening for cardiovascular system disease (048951247) Encounter for screening for cardiovascular disorders (Z13.6) Active confirmed Problem Long-term current use of drug therapy (643496206) Other [employer] (current) drug therapy (Z79.899) 04/25/20 24 Active confirmed Problem 15456109 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.2) Active confirmed Problem Depression Screening (009588499) Encounter for screening for depression (Z13.31) Active confirmed Problem 775801411 MDD (major depressive disorder), recurrent episode, mild (F33.0) Active confirmed Problem 888319707 MDD (major depressive disorder), severe (F32.2) Active confirmed Vital Signs Heart Rate 80 /min 08/04/2024 Respiratory Rate 16 /min 11/23/2023 Height-cm 167.64 cm 08/04/2024 Blood pressure diastolic 75 mm Hg 08/04/2024 Weight-kg 69.4 kg 08/04/2024 Height 66.00 in 08/04/2024 Blood pressure systolic 110 mm Hg 08/04/2024 Weight 153 lbs 08/04/2024 BMI 24.69 kg/m2 08/04/2024 Encounters Encounter Location Date Provider Diagnosis [facility] [address] [facility] [address] [address] 08/17/2023 Martha Hemann Attention-deficit hyperactivity disorder, predominantly inattentive type F90.0 ; Generalized anxiety disorder F41.1 and Major depressive disorder, recurrent, mild F33.0 [facility] [address] [facility] [address] [address] 09/01/2023 Martha Hemann Attention-deficit hyperactivity disorder, predominantly inattentive type F90.0 ; Generalized anxiety disorder F41.1 and Major depressive disorder, recurrent, mild F33.0 [place] [address] [facility] [address] [address] 09/20/2023 Daina Ward [facility] [address] [address] 09/22/2023 Martha Hemann Attention-deficit hyperactivity disorder, predominantly inattentive type F90.0 ; Major depressive disorder, recurrent, moderate F33.1 and Generalized anxiety disorder F41.1 [facility] [address] [facility] [address] [address] 09/23/2023 Daina Ward Generalized anxiety disorder F41.1 ; MDD (major depressive disorder), recurrent episode, mild F33.0 ; Primary insomnia F51.01 ; Other [employer] (current) drug therapy Z79.899 and Attention-deficit hyperactivity disorder, combined type F90.2 [facility] [address] [facility] [address] [place] [address] 11/16/2023 Martha Hemann Attention-deficit hyperactivity disorder, predominantly inattentive type F90.0 ; Major depressive disorder, recurrent, moderate F33.1 and Generalized anxiety disorder F41.1 [facility] [address] [facility] [address] [place] [address] 11/23/2023 Daina Ward Generalized anxiety disorder F41.1 ; MDD (major depressive disorder), recurrent episode, mild F33.0 ; Primary insomnia F51.01 ; Other skilled nursing (current) drug therapy Z79.899 and Attention-deficit hyperactivity disorder, combined type F90.2 [facility] [address] [facility] [address] [place] [address] 12/14/2023 Martha Hemann Attention-deficit hyperactivity disorder, predominantly inattentive type F90.0 ; Generalized anxiety disorder F41.1 and Major depressive disorder, recurrent, mild F33.0 [facility] [address] [facility] [address] [place] [address] 01/18/2024 Martha Hemann Attention-deficit hyperactivity disorder, predominantly inattentive type F90.0 ; Generalized anxiety disorder F41.1 and Major depressive disorder, recurrent, mild F33.0 [facility] [address] [facility] [address] [place] [address] 02/14/2024 Martha Hemann Attention-deficit hyperactivity disorder, predominantly inattentive type F90.0 ; Generalized anxiety disorder F41.1 and Major depressive disorder, recurrent, mild F33.0 [facility] [address] [facility] [address] [place] [address] 03/07/2024 Martha Hemann Attention-deficit hyperactivity disorder, predominantly inattentive type F90.0 ; Generalized anxiety disorder F41.1 and Major depressive disorder, recurrent, mild F33.0 [facility] [address] [facility] [address] [place] [address] 04/04/2024 Daina Ward Generalized anxiety disorder F41.1 ; MDD (major depressive disorder), recurrent episode, mild F33.0 ; Primary insomnia F51.01 ; Other skilled nursing (current) drug therapy Z79.899 and Attention-deficit hyperactivity disorder, combined type F90.2 [facility] [employer] [facility] [address] [place] [address] 04/18/2024 Martha Hemann Attention-deficit hyperactivity disorder, predominantly inattentive type F90.0 ; Generalized anxiety disorder F41.1 and Major depressive disorder, recurrent, mild F33.0 [facility] [employer] [facility] [address] [place] [address] 05/02/2024 Daina Ward Generalized anxiety disorder F41.1 ; MDD (major depressive disorder), recurrent episode, mild F33.0 ; Primary insomnia F51.01 ; Other [employer] (current) drug therapy Z79.899 ; Attention-deficit hyperactivity disorder, combined type F90.2 ; Encounter for screening for depression Z13.31 ; Mixed obsessional thoughts and acts F42.2 and Encounter for screening for cardiovascular disorders Z13.6 [facility] [address] [place] [address] 05/16/2024 Martha Hemann Attention-deficit hyperactivity disorder, predominantly inattentive type F90.0 ; Generalized anxiety disorder F41.1 and Major depressive disorder, recurrent, mild F33.0 [facility] [address] [place] [address] 06/12/2024 Daina Ward Encounter for screen ing for depression Z13.31 ; Generalized anxiety disorder F41.1 ; MDD (major depressive disorder), recurrent episode, mild F33.0 ; Primary insomnia F51.01 ; Other skilled nursing (current) drug therapy Z79.899 ; Attention-deficit hyperactivity disorder, combined type F90.2 ; Mixed obsessional thoughts and acts F42.2 and Encounter for screening for cardiovascular disorders Z13.6 [facility] [employer] [facility] [address] [place] [address] 06/21/2024 Martha Hemann Attention-deficit hyperactivity disorder, predominantly inattentive type F90.0 ; Generalized anxiety disorder F41.1 and Major depressive disorder, recurrent, mild F33.0 [facility] [employer] [facility] [address] [place] [address] 07/11/2024 Martha Hemann Attention-deficit hyperactivity disorder, predominantly inattentive type F90.0 ; Generalized anxiety disorder F41.1 ; Major depressive disorder, recurrent, mild F33.0 and Encounter for screening for depression Z13.31 [facility] [address] [place] [address] 08/04/2024 Daina Thery Encounter for screen ing for depression Z13.31 ; MDD (major depressive disorder), severe F32.2 ; Encounter for screening for cardiovascular disorders Z13.6 ; Generalized anxiety disorder F41.1 ; Primary insomnia F51.01 ; Other skilled nursing (current) drug therapy Z79.899 ; Attention-deficit hyperactivity disorder, combined type F90.2 and Mixed obsessional thoughts and acts F42.2 [facility] [address] [facility] [address] [place] [address] 04/17/2024 Daina Thermyla Major depressive disorder, recurrent, mild F33.0 [facility] [address] [facility] [address] [place] [address] 04/18/2024 Daina Thery [facility], [facility] [address] [place] [address] 09/20/2023 Daina Thery [facility], [facility] [address] [facility] [address] [place] [address] 09/21/2023 Daina Thery [facility], [facility] [address] [facility] [address] [place] [address] 04/20/2024 Daina Thery [facility], [facility] [address] [facility] [address] [place] [address] 04/20/2024 Daina Thery [facility], [facility] [address] [place] [address] 05/02/2024 Daina Thery [facility], [facility] [address] [place] [address] 05/27/2024 Daina Thery [facility], [facility] [address] [place] [address] 08/01/2024 Daina Thery Assessments Encounter Date Diagnosis (ICD Code) Assessment Notes Treatment Notes Treatment Clinical Notes Section Notes 04/17/2024 Major depressive disorder, recurrent, mild (ICD-10 - F33.0) Electronic Prior Authorization was requested for Fetzima 40 MG Capsule Extended Release 24 Hour. Provider can order medication once approval received. 03/07/2024 Generalized anxiety disorder (ICD-10 - F41.1) 03/07/2024 Attention-deficit hyperactivity disorder, predominantly inattentive type [...] Generalized anxiety disorder (ICD-10 - F41.1) 12/14/2023 Attention-deficit hyperactivity disorder, predominantly inattentive type (ICD-10 - F90.0) 01/18/2024 Generalized anxiety disorder (ICD-10 - F41.1) 01/18/2024 Attention-deficit hyperactivity disorder, predominantly inattentive type (ICD-10 - F90.0) 02/14/2024 Generalized anxiety disorder (ICD-10 - F41.1) 02/14/2024 Attention-deficit hyperactivity disorder, predominantly inattentive type (ICD-10 - F90.0) 08/17/2023 Generalized anxiety disorder (ICD-10 - F41.1) 08/17/2023 Attention-deficit hyperactivity disorder, predominantly inattentive type (ICD-10 - F90.0) 09/01/2023 Attention-deficit hyperactivity disorder, predominantly inattentive type (ICD-10 - F90.0) 09/22/2023 Major depressive disorder, recurrent, moderate (ICD-10 - F33.1) 09/22/2023 Attention-deficit hyperactivity disorder, predominantly inattentive type (ICD-10 [...] disorder, recurrent, moderate (ICD-10 - F33.1) 11/16/2023 Attention-deficit hyperactivity disorder, predominantly inattentive type (ICD-10 [...] caffeine therapy monitor 5. Long-term drug therapy 04/18/2024 Generalized anxiety disorder (ICD-10 - F41.1) 04/18/2024 Attention-deficit hyperactivity disorder, predominantly inattentive type (ICD-10 - F90.0) 05/02/2024 Generalized anxiety disorder (ICD-10 - F41.1) Generalized Anxiety Disorder: Care Instructions material was published, Learning About Generalized Anxiety Disorder material was published, Learning About Anxiety Disorders material was published 1. major depression - having increase depression, irritable and anxiety Add Effexor 37.5 mg in am for week then increase to 75 mg daily in am for depression and anxiety monitor B/P Zoloft 100 mg daily - discuss and educated on all rx - educated on all medications, benefits, side effects and risk, and educated on depression, anxiety, and ADHD, mood d/o and educated on compliance of medications, appointment's, educated on serotonin syndrome, continue therapy discussion with patient about course of treatment and patient instructions. educated on ways to find time for self daily obtain labs PCP continue therapy educated on light box therapy and proper use - patient been using in am mammogram 02/13 and diagnostic 03/17 educated on importance prevention care PAP, mammogram, labs, PE, ect 2. Generalized anxiety disorder - Sertraline 100 mg daily Buspar 15 mg three times a day- anxiety- reported helps continue therapy 3. Primary insomnia - decrease caffeine Trazodone 50 mg for sleep sleep hygiene education given refer to therapy CBT for sleep PCP - RLS Improved 4. Attention deficit hyperactivity disorder, predominantly inattentive type -no rx no cannabis use educated no early refills on control limit caffeine therapy monitor 5. OCD improved on Zoloft . Long-term drug therapy 05/16/2024 Generalized anxiety disorder (ICD-10 - F41.1) 05/16/2024 Attention-deficit hyperactivity disorder, predominantly inattentive type (ICD-10 - F90.0) 06/12/2024 Encounter for screening for depression (ICD-10 - Z13.31) 1. major depression - Effexor 75 mg daily in am for depression and anxiety monitor B/P Zoloft 100 mg daily - discuss and educated on all rx - educated on all medications, benefits, side effects and risk, and educated on depression, anxiety, and ADHD, mood d/o and educated on compliance of medications, appointment's, educated on serotonin syndrome, continue therapy discussion with patient about course of treatment and patient instructions. educated on ways to find time for self daily obtain labs PCP continue therapy educated on light box therapy and proper use - patient been using in am mammogram 02/13 and diagnostic 03/17 educated on importance prevention care PAP, mammogram, labs, PE, ect 2. Generalized anxiety disorder - Sertraline 100 mg daily Buspar 15 mg three times a day- anxiety- reported helps continue therapy 3. Primary insomnia - decrease caffeine sleep hygeine Trazodone 50 mg for sleep sleep hygiene education given refer to therapy CBT for sleep PCP - RLS Improved 4. Attention deficit hyperactivity disorder, predominantly inattentive type -no rx no cannabis use educated no early refills on control limit caffeine therapy monitor 5. OCD improved on Zoloft educated on all medications, benefits, side effects and risk, and educated on depression, anxiety, and ADHD, mood d/o and educated on compliance of medications, metabolic and movement d/o education appointment is, continue therapy discussion with patient about course of treatment and patient instructions. education on serotonin syndrome SSRI/SNRI side effects discussed including but not limited to, gastric upset, nausea, vomiting, diarrhea and/or constipation, weight changes, sexual side effects including loss of libido, increased suicidal thoughts/behavio rs in children and young adults, and serotonin syndrome. . Long-term drug therapy 06/21/2024 Generalized anxiety disorder (ICD-10 - F41.1) 06/21/2024 Attention-deficit hyperactivity disorder, predominantly inattentive type (ICD-10 - F90.0) 07/11/2024 Generalized anxiety disorder (ICD-10 - F41.1) 07/11/2024 Attention-deficit hyperactivity disorder, predominantly inattentive type (ICD-10 - F90.0) 08/04/2024 Encounter for screening for depression (ICD-10 - Z13.31) Learning About Depression Screening material was published 1. major depression - Add Seroquel 25 mg at bedtime for 1 week then increase Seroquel 50 mg at bedtime for depression, anxiety, agaition and help sleep discuss and educated on all rx Effexor 75 mg daily in am for depression and anxiety monitor B/P Zoloft 100 mg daily - discuss and educated on all rx - educated on all medications, benefits, side effects and risk, and educated on depression, anxiety, and ADHD, mood d/o and educated on compliance of medications, appointment's, educated on serotonin syndrome, continue therapy discussion with patient about course of treatment and patient instructions. educated on ways to find time for self daily obtain labs PCP continue therapy educated on light box therapy and proper use - patient been using in am mammogram 02/13 and diagnostic 03/17 educated on importance prevention care PAP, mammogram, labs, PE, ect 2. Generalized anxiety disorder - Sertraline 100 mg daily Buspar 15 mg three times a day- anxiety- reported helps continue therapy 3. Primary insomnia - decrease caffeine sleep hygeine Trazodone 25-50 mg for sleep PRN sleep hygiene education given refer to therapy CBT for sleep scheduled for sleep study by PCP PCP - RLS Improved 4. Attention deficit hyperactivity disorder, predominantly inattentive type -no rx no cannabis use educated no early refills on control limit caffeine therapy monitor 5. OCD Zoloft educated on all medications, benefits, side effects and risk, and educated on depression, anxiety, and ADHD, mood d/o and educated on compliance of medications, metabolic and movement d/o education appointment is, continue therapy discussion with patient about course of treatment and patient instructions. education on serotonin syndrome SSRI/SNRI side effects discussed including but not limited to, gastric upset, nausea, vomiting, diarrhea and/or constipation, weight changes, sexual side effects including loss of libido, increased suicidal thoughts/behavio rs in children and young adults, and serotonin syndrome. Second generation antipsychotics (SGAs) have metabolic syndrome issues with weight gain, increase in prolactin, increased waist circumference, increased lipids, and increased glucose. Thus routine monitoring of weight, metabolic labs, etc. is indicated. A general rank ordering of antipsychotics that have the greatest to the least risk of metabolic effects is olanzapine, quetiapine, risperidone, ziprasidone, and aripiprazole. However, weight gain can occur with all of these drugs and considerable variability exists among patients receiving the same drug regarding the risk of metabolic effects. Anti-psychotic agents not only increase the risk of metabolic disorder, they also increase the risk of CVA, akathisia, and movement disorders including EPS or tardive dyskinesia (more common with first generation antipsychotics) and more. . Long-term drug therapy 08/04/2024 MDD (major depressive disorder), severe (ICD-10 - F32.2) Depression Treatment: Care Instructions material was published, Learning About Depression material was published, Deciding About Stopping Your Antidepressant material was published, Preventing Depression From Coming Back: Care Instructions material was published 1. major depression - Add Seroquel 25 mg at bedtime for 1 week then increase Seroquel 50 mg at bedtime for depression, anxiety, agaition and help sleep discuss and educated on all rx Effexor 75 mg daily in am for depression and anxiety monitor B/P Zoloft 100 mg daily - discuss and educated on all rx - educated on all medications, benefits, side effects and risk, and educated on depression, anxiety, and ADHD, mood d/o and educated on compliance of medications, appointment's, educated on serotonin syndrome, continue therapy discussion with patient about course of treatment and patient instructions. educated on ways to find time for self daily obtain labs PCP continue therapy educated on light box therapy and proper use - patient been using in am mammogram 02/13 and diagnostic 03/17 educated on importance prevention care PAP, mammogram, labs, PE, ect 2. Generalized anxiety disorder - Sertraline 100 mg daily Buspar 15 mg three times a day- anxiety- reported helps continue therapy 3. Primary insomnia - decrease caffeine sleep hygeine Trazodone 25-50 mg for sleep PRN sleep hygiene education given refer to therapy CBT for sleep scheduled for sleep study by PCP PCP - RLS Improved 4. Attention deficit hyperactivity disorder, predominantly inattentive type -no rx no cannabis use educated no early refills on control limit caffeine therapy monitor 5. OCD Zoloft educated on all medications, benefits, side effects and risk, and educated on depression, anxiety, and ADHD, mood d/o and educated on compliance of medications, metabolic and movement d/o education appointment is, continue therapy discussion with patient about course of treatment and patient instructions. education on serotonin syndrome SSRI/SNRI side effects discussed including but not limited to, gastric upset, nausea, vomiting, diarrhea and/or constipation, weight changes, sexual side effects including loss of libido, increased suicidal thoughts/behavio rs in children and young adults, and serotonin syndrome. Second generation antipsychotics (SGAs) have metabolic syndrome issues with weight gain, increase in prolactin, increased waist circumference, increased lipids, and increased glucose. Thus routine monitoring of weight, metabolic labs, etc. is indicated. A general rank ordering of antipsychotics that have the greatest to the least risk of metabolic effects is olanzapine, quetiapine, risperidone, ziprasidone, and aripiprazole. However, weight gain can occur with all of these drugs and considerable variability exists among patients receiving the same drug regarding the risk of metabolic effects. Anti-psychotic agents not only increase the risk of metabolic disorder, they also increase the risk of CVA, akathisia, and movement disorders including EPS or tardive dyskinesia (more common with first generation antipsychotics) and more. . Long-term drug therapy 08/17/2023 Major depressive disorder, recurrent, mild (ICD-10 - F33.0) 07/11/2024 Major depressive disorder, recurrent, mild (ICD-10 - F33.0) 08/04/2024 Encounter for screening for cardiovascular disorders (ICD-10 - Z13.6) 1. major depression - Add Seroquel 25 mg at bedtime for 1 week then increase Seroquel 50 mg at bedtime for depression, anxiety, agaition and help sleep discuss and educated on all rx Effexor 75 mg daily in am for depression and anxiety monitor B/P Zoloft 100 mg daily - discuss and educated on all rx - educated on all medications, benefits, side effects and risk, and educated on depression, anxiety, and ADHD, mood d/o and educated on compliance of medications, appointment's, educated on serotonin syndrome, continue therapy discussion with patient about course of treatment and patient instructions. educated on ways to find time for self daily obtain labs PCP continue therapy educated on light box therapy and proper use - patient been using in am mammogram 02/13 and diagnostic 03/17 educated on importance prevention care PAP, mammogram, labs, PE, ect 2. Generalized anxiety disorder - Sertraline 100 mg daily Buspar 15 mg three times a day- anxiety- reported helps continue therapy 3. Primary insomnia - decrease caffeine sleep hygeine Trazodone 25-50 mg for sleep PRN sleep hygiene education given refer to therapy CBT for sleep scheduled for sleep study by PCP PCP - RLS Improved 4. Attention deficit hyperactivity disorder, predominantly inattentive type -no rx no cannabis use educated no early refills on control limit caffeine therapy monitor 5. OCD Zoloft educated on all medications, benefits, side effects and risk, and educated on depression, anxiety, and ADHD, mood d/o and educated on compliance of medications, metabolic and movement d/o education appointment is, continue therapy discussion with patient about course of treatment and patient instructions. education on serotonin syndrome SSRI/SNRI side effects discussed including but not limited to, gastric upset, nausea, vomiting, diarrhea and/or constipation, weight changes, sexual side effects including loss of libido, increased suicidal thoughts/behavio rs in children and young adults, and serotonin syndrome. Second generation antipsychotics (SGAs) have metabolic syndrome issues with weight gain, increase in prolactin, increased waist circumference, increased lipids, and increased glucose. Thus routine monitoring of weight, metabolic labs, etc. is indicated. A general rank ordering of antipsychotics that have the greatest to the least risk of metabolic effects is olanzapine, quetiapine, risperidone, ziprasidone, and aripiprazole. However, weight gain can occur with all of these drugs and considerable variability exists among patients receiving the same drug regarding the risk of metabolic effects. Anti-psychotic agents not only increase the risk of metabolic disorder, they also increase the risk of CVA, akathisia, and movement disorders including EPS or tardive dyskinesia (more common with first generation antipsychotics) and more. . Long-term drug therapy 06/21/2024 Major depressive disorder, recurrent, mild (ICD-10 - F33.0) 06/12/2024 Generalized anxiety disorder (ICD-10 - F41.1) Generalized Anxiety Disorder: Care Instructions material was published, Learning About Generalized Anxiety Disorder material was published, Learning About Anxiety Disorders material was published 1. major depression - Effexor 75 mg daily in am for depression and anxiety monitor B/P Zoloft 100 mg daily - discuss and educated on all rx - educated on all medications, benefits, side effects and risk, and educated on depression, anxiety, and ADHD, mood d/o and educated on compliance of medications, appointment's, educated on serotonin syndrome, continue therapy discussion with patient about course of treatment and patient instructions. educated on ways to find time for self daily obtain labs PCP continue therapy educated on light box therapy and proper use - patient been using in am mammogram 02/13 and diagnostic 03/17 educated on importance prevention care PAP, mammogram, labs, PE, ect 2. Generalized anxiety disorder - Sertraline 100 mg daily Buspar 15 mg three times a day- anxiety- reported helps continue therapy 3. Primary insomnia - decrease caffeine sleep hygeine Trazodone 50 mg for sleep sleep hygiene education given refer to therapy CBT for sleep PCP - RLS Improved 4. Attention deficit hyperactivity disorder, predominantly inattentive type -no rx no cannabis use educated no early refills on control limit caffeine therapy monitor 5. OCD improved on Zoloft educated on all medications, benefits, side effects and risk, and educated on depression, anxiety, and ADHD, mood d/o and educated on compliance of medications, metabolic and movement d/o education appointment is, continue therapy discussion with patient about course of treatment and patient instructions. education on serotonin syndrome SSRI/SNRI side effects discussed including but not limited to, gastric upset, nausea, vomiting, diarrhea and/or constipation, weight changes, sexual side effects including loss of libido, increased suicidal thoughts/behavio rs in children and young adults, and serotonin syndrome. . Long-term drug therapy 05/02/2024 MDD (major depressive disorder), recurrent episode, mild (ICD-10 - F33.0) Preventing Depression From Coming Back: Care Instructions material was published, Depression Treatment: Care Instructions material was published, Seasonal Affective Disorder: Care Instructions material was published 1. major depression - having increase depression, irritable and anxiety Add Effexor 37.5 mg in am for week then increase to 75 mg daily in am for depression and anxiety monitor B/P Zoloft 100 mg daily - discuss and educated on all rx - educated on all medications, benefits, side effects and risk, and educated on depression, anxiety, and ADHD, mood d/o and educated on compliance of medications, appointment's, educated on serotonin syndrome, continue therapy discussion with patient about course of treatment and patient instructions. educated on ways to find time for self daily obtain labs PCP continue therapy educated on light box therapy and proper use - patient been using in am mammogram 02/13 and diagnostic 03/17 educated on importance prevention care PAP, mammogram, labs, PE, ect 2. Generalized anxiety disorder - Sertraline 100 mg daily Buspar 15 mg three times a day- anxiety- reported helps continue therapy 3. Primary insomnia - decrease caffeine Trazodone 50 mg for sleep sleep hygiene education given refer to therapy CBT for sleep PCP - RLS Improved 4. Attention deficit hyperactivity disorder, predominantly inattentive type -no rx no cannabis use educated no early refills on control limit caffeine therapy monitor 5. OCD improved on Zoloft . Long-term drug therapy 05/16/2024 Major depressive disorder, recurrent, mild (ICD-10 - F33.0) 05/02/2024 Primary insomnia (ICD-10 - F51.01) Insomnia: Care Instructions material was published, Learning About Sleeping Well material was published 1. major depression - having increase depression, irritable and anxiety Add Effexor 37.5 mg in am for week then increase to 75 mg daily in am for depression and anxiety monitor B/P Zoloft 100 mg daily - discuss and educated on all rx - educated on all medications, benefits, side effects and risk, and educated on depression, anxiety, and ADHD, mood d/o and educated on compliance of medications, appointment's, educated on serotonin syndrome, continue therapy discussion with patient about course of treatment and patient instructions. educated on ways to find time for self daily obtain labs PCP continue therapy educated on light box therapy and proper use - patient been using in am mammogram 02/13 and diagnostic 03/17 educated on importance prevention care PAP, mammogram, labs, PE, ect 2. Generalized anxiety disorder - Sertraline 100 mg daily Buspar 15 mg three times a day- anxiety- reported helps continue therapy 3. Primary insomnia - decrease caffeine Trazodone 50 mg for sleep sleep hygiene education given refer to therapy CBT for sleep PCP - RLS Improved 4. Attention deficit hyperactivity disorder, predominantly inattentive type -no rx no cannabis use educated no early refills on control limit caffeine therapy monitor 5. OCD improved on Zoloft . Long-term drug therapy 04/04/2024 MDD (major depressive [...] therapy monitor 5. Long-term drug therapy 11/16/2023 Generalized anxiety disorder (ICD-10 - F41.1) [...] 09/22/2023 Generalized anxiety disorder (ICD-10 - F41.1) 03/07/2024 [...] depressive disorder, recurrent, mild (ICD-10 - F33.0) 04/18/2024 Major depressive disorder, recurrent, mild (ICD-10 - F33.0) 04/04/2024 Primary insomnia (ICD-10 - F51.01) Insomnia: [...] caffeine therapy monitor 5. Long-term drug therapy 09/01/2023 Major depressive disorder, recurrent, mild (ICD-10 - F33.0) 09/23/2023 Other [employer] (current) drug therapy (ICD-10 - Z79.899) Medication [...] caffeine therapy monitor 5. Long-term drug therapy 05/02/2024 Other skilled nursing (current) drug therapy (ICD-10 - Z79.899) Medication Refill: Care Instructions material was published 1. major depression - having increase depression, irritable and anxiety Add Effexor 37.5 mg in am for week then increase to 75 mg daily in am for depression and anxiety monitor B/P Zoloft 100 mg daily - discuss and educated on all rx - educated on all medications, benefits, side effects and risk, and educated on depression, anxiety, and ADHD, mood d/o and educated on compliance of medications, appointment's, educated on serotonin syndrome, continue therapy discussion with patient about course of treatment and patient instructions. educated on ways to find time for self daily obtain labs PCP continue therapy educated on light box therapy and proper use - patient been using in am mammogram 02/13 and diagnostic 03/17 educated on importance prevention care PAP, mammogram, labs, PE, ect 2. Generalized anxiety disorder - Sertraline 100 mg daily Buspar 15 mg three times a day- anxiety- reported helps continue therapy 3. Primary insomnia - decrease caffeine Trazodone 50 mg for sleep sleep hygiene education given refer to therapy CBT for sleep PCP - RLS Improved 4. Attention deficit hyperactivity disorder, predominantly inattentive type -no rx no cannabis use educated no early refills on control limit caffeine therapy monitor 5. OCD improved on Zoloft . Long-term drug therapy 06/12/2024 MDD (major depressive disorder), recurrent episode, mild (ICD-10 - F33.0) Preventing Depression From Coming Back: Care Instructions material was published, Depression Treatment: Care Instructions material was published, Seasonal Affective Disorder: Care Instructions material was published 1. major depression - Effexor 75 mg daily in am for depression and anxiety monitor B/P Zoloft 100 mg daily - discuss and educated on all rx - educated on all medications, benefits, side effects and risk, and educated on depression, anxiety, and ADHD, mood d/o and educated on compliance of medications, appointment's, educated on serotonin syndrome, continue therapy discussion with patient about course of treatment and patient instructions. educated on ways to find time for self daily obtain labs PCP continue therapy educated on light box therapy and proper use - patient been using in am mammogram 02/13 and diagnostic 03/17 educated on importance prevention care PAP, mammogram, labs, PE, ect 2. Generalized anxiety disorder - Sertraline 100 mg daily Buspar 15 mg three times a day- anxiety- reported helps continue therapy 3. Primary insomnia - decrease caffeine sleep hygeine Trazodone 50 mg for sleep sleep hygiene education given refer to therapy CBT for sleep PCP - RLS Improved 4. Attention deficit hyperactivity disorder, predominantly inattentive type -no rx no cannabis use educated no early refills on control limit caffeine therapy monitor 5. OCD improved on Zoloft educated on all medications, benefits, side effects and risk, and educated on depression, anxiety, and ADHD, mood d/o and educated on compliance of medications, metabolic and movement d/o education appointment is, continue therapy discussion with patient about course of treatment and patient instructions. education on serotonin syndrome SSRI/SNRI side effects discussed including but not limited to, gastric upset, nausea, vomiting, diarrhea and/or constipation, weight changes, sexual side effects including loss of libido, increased suicidal thoughts/behavio rs in children and young adults, and serotonin syndrome. . Long-term drug therapy 08/04/2024 Generalized anxiety disorder (ICD-10 - F41.1) Generalized Anxiety Disorder: Care Instructions material was published, Learning About Generalized Anxiety Disorder material was published, Learning About Anxiety Disorders material was published, Learning About Generalized Anxiety Disorder material was published, Generalized Anxiety Disorder: Care Instructions material was published, Learning About Anxiety Disorders material was published 1. major depression - Add Seroquel 25 mg at bedtime for 1 week then increase Seroquel 50 mg at bedtime for depression, anxiety, agaition and help sleep discuss and educated on all rx Effexor 75 mg daily in am for depression and anxiety monitor B/P Zoloft 100 mg daily - discuss and educated on all rx - educated on all medications, benefits, side effects and risk, and educated on depression, anxiety, and ADHD, mood d/o and educated on compliance of medications, appointment's, educated on serotonin syndrome, continue therapy discussion with patient about course of treatment and patient instructions. educated on ways to find time for self daily obtain labs PCP continue therapy educated on light box therapy and proper use - patient been using in am mammogram 02/13 and diagnostic 03/17 educated on importance prevention care PAP, mammogram, labs, PE, ect 2. Generalized anxiety disorder - Sertraline 100 mg daily Buspar 15 mg three times a day- anxiety- reported helps continue therapy 3. Primary insomnia - decrease caffeine sleep hygeine Trazodone 25-50 mg for sleep PRN sleep hygiene education given refer to therapy CBT for sleep scheduled for sleep study by PCP PCP - RLS Improved 4. Attention deficit hyperactivity disorder, predominantly inattentive type -no rx no cannabis use educated no early refills on control limit caffeine therapy monitor 5. OCD Zoloft educated on all medications, benefits, side effects and risk, and educated on depression, anxiety, and ADHD, mood d/o and educated on compliance of medications, metabolic and movement d/o education appointment is, continue therapy discussion with patient about course of treatment and patient instructions. education on serotonin syndrome SSRI/SNRI side effects discussed including but not limited to, gastric upset, nausea, vomiting, diarrhea and/or constipation, weight changes, sexual side effects including loss of libido, increased suicidal thoughts/behavio rs in children and young adults, and serotonin syndrome. Second generation antipsychotics (SGAs) have metabolic syndrome issues with weight gain, increase in prolactin, increased waist circumference, increased lipids, and increased glucose. Thus routine monitoring of weight, metabolic labs, etc. is indicated. A general rank ordering of antipsychotics that have the greatest to the least risk of metabolic effects is olanzapine, quetiapine, risperidone, ziprasidone, and aripiprazole. However, weight gain can occur with all of these drugs and considerable variability exists among patients receiving the same drug regarding the risk of metabolic effects. Anti-psychotic agents not only increase the risk of metabolic disorder, they also increase the risk of CVA, akathisia, and movement disorders including EPS or tardive dyskinesia (more common with first generation antipsychotics) and more. . Long-term drug therapy 08/04/2024 Primary insomnia (ICD-10 - F51.01) Insomnia: Care Instructions material was published, Learning About Sleeping Well material was published, Insomnia: Care Instructions material was published, Learning About Sleeping Well material was published 1. major depression - Add Seroquel 25 mg at bedtime for 1 week then increase Seroquel 50 mg at bedtime for depression, anxiety, agaition and help sleep discuss and educated on all rx Effexor 75 mg daily in am for depression and anxiety monitor B/P Zoloft 100 mg daily - discuss and educated on all rx - educated on all medications, benefits, side effects and risk, and educated on depression, anxiety, and ADHD, mood d/o and educated on compliance of medications, appointment's, educated on serotonin syndrome, continue therapy discussion with patient about course of treatment and patient instructions. educated on ways to find time for self daily obtain labs PCP continue therapy educated on light box therapy and proper use - patient been using in am mammogram 02/13 and diagnostic 03/17 educated on importance prevention care PAP, mammogram, labs, PE, ect 2. Generalized anxiety disorder - Sertraline 100 mg daily Buspar 15 mg three times a day- anxiety- reported helps continue therapy 3. Primary insomnia - decrease caffeine sleep hygeine Trazodone 25-50 mg for sleep PRN sleep hygiene education given refer to therapy CBT for sleep scheduled for sleep study by PCP PCP - RLS Improved 4. Attention deficit hyperactivity disorder, predominantly inattentive type -no rx no cannabis use educated no early refills on control limit caffeine therapy monitor 5. OCD Zoloft educated on all medications, benefits, side effects and risk, and educated on depression, anxiety, and ADHD, mood d/o and educated on compliance of medications, metabolic and movement d/o education appointment is, continue therapy discussion with patient about course of treatment and patient instructions. education on serotonin syndrome SSRI/SNRI side effects discussed including but not limited to, gastric upset, nausea, vomiting, diarrhea and/or constipation, weight changes, sexual side effects including loss of libido, increased suicidal thoughts/behavio rs in children and young adults, and serotonin syndrome. Second generation antipsychotics (SGAs) have metabolic syndrome issues with weight gain, increase in prolactin, increased waist circumference, increased lipids, and increased glucose. Thus routine monitoring of weight, metabolic labs, etc. is indicated. A general rank ordering of antipsychotics that have the greatest to the least risk of metabolic effects is olanzapine, quetiapine, risperidone, ziprasidone, and aripiprazole. However, weight gain can occur with all of these drugs and considerable variability exists among patients receiving the same drug regarding the risk of metabolic effects. Anti-psychotic agents not only increase the risk of metabolic disorder, they also increase the risk of CVA, akathisia, and movement disorders including EPS or tardive dyskinesia (more common with first generation antipsychotics) and more. . Long-term drug therapy 07/11/2024 Encounter for screening for depression (ICD-10 - Z13.31) 05/02/2024 Attention-deficit hyperactivity disorder, combined type (ICD-10 - F90.2) Attention Deficit Hyperactivity Disorder (ADHD) in Adults: Care Instructions material was published 1. major depression - having increase depression, irritable and anxiety Add Effexor 37.5 mg in am for week then increase to 75 mg daily in am for depression and anxiety monitor B/P Zoloft 100 mg daily - discuss and educated on all rx - educated on all medications, benefits, side effects and risk, and educated on depression, anxiety, and ADHD, mood d/o and educated on compliance of medications, appointment's, educated on serotonin syndrome, continue therapy discussion with patient about course of treatment and patient instructions. educated on ways to find time for self daily obtain labs PCP continue therapy educated on light box therapy and proper use - patient been using in am mammogram 02/13 and diagnostic 03/17 educated on importance prevention care PAP, mammogram, labs, PE, ect 2. Generalized anxiety disorder - Sertraline 100 mg daily Buspar 15 mg three times a day- anxiety- reported helps continue therapy 3. Primary insomnia - decrease caffeine Trazodone 50 mg for sleep sleep hygiene education given refer to therapy CBT for sleep PCP - RLS Improved 4. Attention deficit hyperactivity disorder, predominantly inattentive type -no rx no cannabis use educated no early refills on control limit caffeine therapy monitor 5. OCD improved on Zoloft . Long-term drug therapy 06/12/2024 Primary insomnia (ICD-10 - F51.01) Insomnia: Care Instructions material was published, Learning About Sleeping Well material was published 1. major depression - Effexor 75 mg daily in am for depression and anxiety monitor B/P Zoloft 100 mg daily - discuss and educated on all rx - educated on all medications, benefits, side effects and risk, and educated on depression, anxiety, and ADHD, mood d/o and educated on compliance of medications, appointment's, educated on serotonin syndrome, continue therapy discussion with patient about course of treatment and patient instructions. educated on ways to find time for self daily obtain labs PCP continue therapy educated on light box therapy and proper use - patient been using in am mammogram 02/13 and diagnostic 03/17 educated on importance prevention care PAP, mammogram, labs, PE, ect 2. Generalized anxiety disorder - Sertraline 100 mg daily Buspar 15 mg three times a day- anxiety- reported helps continue therapy 3. Primary insomnia - decrease caffeine sleep hygeine Trazodone 50 mg for sleep sleep hygiene education given refer to therapy CBT for sleep PCP - RLS Improved 4. Attention deficit hyperactivity disorder, predominantly inattentive type -no rx no cannabis use educated no early refills on control limit caffeine therapy monitor 5. OCD improved on Zoloft educated on all medications, benefits, side effects and risk, and educated on depression, anxiety, and ADHD, mood d/o and educated on compliance of medications, metabolic and movement d/o education appointment is, continue therapy discussion with patient about course of treatment and patient instructions. education on serotonin syndrome SSRI/SNRI side effects discussed including but not limited to, gastric upset, nausea, vomiting, diarrhea and/or constipation, weight changes, sexual side effects including loss of libido, increased suicidal thoughts/behavio rs in children and young adults, and serotonin syndrome. . Long-term drug therapy 09/23/2023 Attention-deficit hyperactivity disorder, combined type (ICD-10 - F90.2) [...] monitor 5. Long-term drug therapy 11/23/2023 Other [employer] (current) drug therapy (ICD-10 - Z79.899) Medication [...] monitor 5. Long-term drug therapy 04/04/2024 Other skilled nursing (current) drug therapy (ICD-10 - Z79.899) Medication [...] therapy monitor 5. Long-term drug therapy 04/04/2024 Attention-deficit hyperactivity disorder, combined type (ICD-10 - F90.2) [...] therapy monitor 5. Long-term drug therapy 11/23/2023 Attention-deficit hyperactivity disorder, combined type (ICD-10 - F90.2) [...] caffeine therapy monitor 5. Long-term drug therapy 06/12/2024 Other skilled nursing (current) drug therapy (ICD-10 - Z79.899) Medication Refill: Care Instructions material was published 1. major depression - Effexor 75 mg daily in am for depression and anxiety monitor B/P Zoloft 100 mg daily - discuss and educated on all rx - educated on all medications, benefits, side effects and risk, and educated on depression, anxiety, and ADHD, mood d/o and educated on compliance of medications, appointment's, educated on serotonin syndrome, continue therapy discussion with patient about course of treatment and patient instructions. educated on ways to find time for self daily obtain labs PCP continue therapy educated on light box therapy and proper use - patient been using in am mammogram 02/13 and diagnostic 03/17 educated on importance prevention care PAP, mammogram, labs, PE, ect 2. Generalized anxiety disorder - Sertraline 100 mg daily Buspar 15 mg three times a day- anxiety- reported helps continue therapy 3. Primary insomnia - decrease caffeine sleep hygeine Trazodone 50 mg for sleep sleep hygiene education given refer to therapy CBT for sleep PCP - RLS Improved 4. Attention deficit hyperactivity disorder, predominantly inattentive type -no rx no cannabis use educated no early refills on control limit caffeine therapy monitor 5. OCD improved on Zoloft educated on all medications, benefits, side effects and risk, and educated on depression, anxiety, and ADHD, mood d/o and educated on compliance of medications, metabolic and movement d/o education appointment is, continue therapy discussion with patient about course of treatment and patient instructions. education on serotonin syndrome SSRI/SNRI side effects discussed including but not limited to, gastric upset, nausea, vomiting, diarrhea and/or constipation, weight changes, sexual side effects including loss of libido, increased suicidal thoughts/behavio rs in children and young adults, and serotonin syndrome. . Long-term drug therapy 05/02/2024 Encounter for screening for depression (ICD-10 - Z13.31) 1. major depression - having increase depression, irritable and anxiety Add Effexor 37.5 mg in am for week then increase to 75 mg daily in am for depression and anxiety monitor B/P Zoloft 100 mg daily - discuss and educated on all rx - educated on all medications, benefits, side effects and risk, and educated on depression, anxiety, and ADHD, mood d/o and educated on compliance of medications, appointment's, educated on serotonin syndrome, continue therapy discussion with patient about course of treatment and patient instructions. educated on ways to find time for self daily obtain labs PCP continue therapy educated on light box therapy and proper use - patient been using in am mammogram 02/13 and diagnostic 03/17 educated on importance prevention care PAP, mammogram, labs, PE, ect 2. Generalized anxiety disorder - Sertraline 100 mg daily Buspar 15 mg three times a day- anxiety- reported helps continue therapy 3. Primary insomnia - decrease caffeine Trazodone 50 mg for sleep sleep hygiene education given refer to therapy CBT for sleep PCP - RLS Improved 4. Attention deficit hyperactivity disorder, predominantly inattentive type -no rx no cannabis use educated no early refills on control limit caffeine therapy monitor 5. OCD improved on Zoloft . Long-term drug therapy 08/04/2024 Other skilled nursing (current) drug therapy (ICD-10 - Z79.899) Medication Refill: Care Instructions material was published, Medication Refill: Care Instructions material was published 1. major depression - Add Seroquel 25 mg at bedtime for 1 week then increase Seroquel 50 mg at bedtime for depression, anxiety, agaition and help sleep discuss and educated on all rx Effexor 75 mg daily in am for depression and anxiety monitor B/P Zoloft 100 mg daily - discuss and educated on all rx - educated on all medications, benefits, side effects and risk, and educated on depression, anxiety, and ADHD, mood d/o and educated on compliance of medications, appointment's, educated on serotonin syndrome, continue therapy discussion with patient about course of treatment and patient instructions. educated on ways to find time for self daily obtain labs PCP continue therapy educated on light box therapy and proper use - patient been using in am mammogram 02/13 and diagnostic 03/17 educated on importance prevention care PAP, mammogram, labs, PE, ect 2. Generalized anxiety disorder - Sertraline 100 mg daily Buspar 15 mg three times a day- anxiety- reported helps continue therapy 3. Primary insomnia - decrease caffeine sleep hygeine Trazodone 25-50 mg for sleep PRN sleep hygiene education given refer to therapy CBT for sleep scheduled for sleep study by PCP PCP - RLS Improved 4. Attention deficit hyperactivity disorder, predominantly inattentive type -no rx no cannabis use educated no early refills on control limit caffeine therapy monitor 5. OCD Zoloft educated on all medications, benefits, side effects and risk, and educated on depression, anxiety, and ADHD, mood d/o and educated on compliance of medications, metabolic and movement d/o education appointment is, continue therapy discussion with patient about course of treatment and patient instructions. education on serotonin syndrome SSRI/SNRI side effects discussed including but not limited to, gastric upset, nausea, vomiting, diarrhea and/or constipation, weight changes, sexual side effects including loss of libido, increased suicidal thoughts/behavio rs in children and young adults, and serotonin syndrome. Second generation antipsychotics (SGAs) have metabolic syndrome issues with weight gain, increase in prolactin, increased waist circumference, increased lipids, and increased glucose. Thus routine monitoring of weight, metabolic labs, etc. is indicated. A general rank ordering of antipsychotics that have the greatest to the least risk of metabolic effects is olanzapine, quetiapine, risperidone, ziprasidone, and aripiprazole. However, weight gain can occur with all of these drugs and considerable variability exists among patients receiving the same drug regarding the risk of metabolic effects. Anti-psychotic agents not only increase the risk of metabolic disorder, they also increase the risk of CVA, akathisia, and movement disorders including EPS or tardive dyskinesia (more common with first generation antipsychotics) and more. . Long-term drug therapy 08/04/2024 Attention-deficit hyperactivity disorder, combined type (ICD-10 - F90.2) Attention Deficit Hyperactivity Disorder (ADHD) in Adults: Care Instructions material was published, Learning About Attention Deficit Hyperactivity Disorder (ADHD) in Adults material was published 1. major depression - Add Seroquel 25 mg at bedtime for 1 week then increase Seroquel 50 mg at bedtime for depression, anxiety, agaition and help sleep discuss and educated on all rx Effexor 75 mg daily in am for depression and anxiety monitor B/P Zoloft 100 mg daily - discuss and educated on all rx - educated on all medications, benefits, side effects and risk, and educated on depression, anxiety, and ADHD, mood d/o and educated on compliance of medications, appointment's, educated on serotonin syndrome, continue therapy discussion with patient about course of treatment and patient instructions. educated on ways to find time for self daily obtain labs PCP continue therapy educated on light box therapy and proper use - patient been using in am mammogram 02/13 and diagnostic 03/17 educated on importance prevention care PAP, mammogram, labs, PE, ect 2. Generalized anxiety disorder - Sertraline 100 mg daily Buspar 15 mg three times a day- anxiety- reported helps continue therapy 3. Primary insomnia - decrease caffeine sleep hygeine Trazodone 25-50 mg for sleep PRN sleep hygiene education given refer to therapy CBT for sleep scheduled for sleep study by PCP PCP - RLS Improved 4. Attention deficit hyperactivity disorder, predominantly inattentive type -no rx no cannabis use educated no early refills on control limit caffeine therapy monitor 5. OCD Zoloft educated on all medications, benefits, side effects and risk, and educated on depression, anxiety, and ADHD, mood d/o and educated on compliance of medications, metabolic and movement d/o education appointment is, continue therapy discussion with patient about course of treatment and patient instructions. education on serotonin syndrome SSRI/SNRI side effects discussed including but not limited to, gastric upset, nausea, vomiting, diarrhea and/or constipation, weight changes, sexual side effects including loss of libido, increased suicidal thoughts/behavio rs in children and young adults, and serotonin syndrome. Second generation antipsychotics (SGAs) have metabolic syndrome issues with weight gain, increase in prolactin, increased waist circumference, increased lipids, and increased glucose. Thus routine monitoring of weight, metabolic labs, etc. is indicated. A general rank ordering of antipsychotics that have the greatest to the least risk of metabolic effects is olanzapine, quetiapine, risperidone, ziprasidone, and aripiprazole. However, weight gain can occur with all of these drugs and considerable variability exists among patients receiving the same drug regarding the risk of metabolic effects. Anti-psychotic agents not only increase the risk of metabolic disorder, they also increase the risk of CVA, akathisia, and movement disorders including EPS or tardive dyskinesia (more common with first generation antipsychotics) and more. . Long-term drug therapy 05/02/2024 Mixed obsessional thoughts and acts (ICD-10 - F42.2) 1. major depression - having increase depression, irritable and anxiety Add Effexor 37.5 mg in am for week then increase to 75 mg daily in am for depression and anxiety monitor B/P Zoloft 100 mg daily - discuss and educated on all rx - educated on all medications, benefits, side effects and risk, and educated on depression, anxiety, and ADHD, mood d/o and educated on compliance of medications, appointment's, educated on serotonin syndrome, continue therapy discussion with patient about course of treatment and patient instructions. educated on ways to find time for self daily obtain labs PCP continue therapy educated on light box therapy and proper use - patient been using in am mammogram 02/13 and diagnostic 03/17 educated on importance prevention care PAP, mammogram, labs, PE, ect 2. Generalized anxiety disorder - Sertraline 100 mg daily Buspar 15 mg three times a day- anxiety- reported helps continue therapy 3. Primary insomnia - decrease caffeine Trazodone 50 mg for sleep sleep hygiene education given refer to therapy CBT for sleep PCP - RLS Improved 4. Attention deficit hyperactivity disorder, predominantly inattentive type -no rx no cannabis use educated no early refills on control limit caffeine therapy monitor 5. OCD improved on Zoloft . Long-term drug therapy 06/12/2024 Attention-deficit hyperactivity disorder, combined type (ICD-10 - F90.2) Attention Deficit Hyperactivity Disorder (ADHD) in Adults: Care Instructions material was published 1. major depression - Effexor 75 mg daily in am for depression and anxiety monitor B/P Zoloft 100 mg daily - discuss and educated on all rx - educated on all medications, benefits, side effects and risk, and educated on depression, anxiety, and ADHD, mood d/o and educated on compliance of medications, appointment's, educated on serotonin syndrome, continue therapy discussion with patient about course of treatment and patient instructions. educated on ways to find time for self daily obtain labs PCP continue therapy educated on light box therapy and proper use - patient been using in am mammogram 02/13 and diagnostic 03/17 educated on importance prevention care PAP, mammogram, labs, PE, ect 2. Generalized anxiety disorder - Sertraline 100 mg daily Buspar 15 mg three times a day- anxiety- reported helps continue therapy 3. Primary insomnia - decrease caffeine sleep hygeine Trazodone 50 mg for sleep sleep hygiene education given refer to therapy CBT for sleep PCP - RLS Improved 4. Attention deficit hyperactivity disorder, predominantly inattentive type -no rx no cannabis use educated no early refills on control limit caffeine therapy monitor 5. OCD improved on Zoloft educated on all medications, benefits, side effects and risk, and educated on depression, anxiety, and ADHD, mood d/o and educated on compliance of medications, metabolic and movement d/o education appointment is, continue therapy discussion with patient about course of treatment and patient instructions. education on serotonin syndrome SSRI/SNRI side effects discussed including but not limited to, gastric upset, nausea, vomiting, diarrhea and/or constipation, weight changes, sexual side effects including loss of libido, increased suicidal thoughts/behavio rs in children and young adults, and serotonin syndrome. . Long-term drug therapy 06/12/2024 Mixed obsessional thoughts and acts (ICD-10 - F42.2) 1. major depression - Effexor 75 mg daily in am for depression and anxiety monitor B/P Zoloft 100 mg daily - discuss and educated on all rx - educated on all medications, benefits, side effects and risk, and educated on depression, anxiety, and ADHD, mood d/o and educated on compliance of medications, appointment's, educated on serotonin syndrome, continue therapy discussion with patient about course of treatment and patient instructions. educated on ways to find time for self daily obtain labs PCP continue therapy educated on light box therapy and proper use - patient been using in am mammogram 02/13 and diagnostic 03/17 educated on importance prevention care PAP, mammogram, labs, PE, ect 2. Generalized anxiety disorder - Sertraline 100 mg daily Buspar 15 mg three times a day- anxiety- reported helps continue therapy 3. Primary insomnia - decrease caffeine sleep hygeine Trazodone 50 mg for sleep sleep hygiene education given refer to therapy CBT for sleep PCP - RLS Improved 4. Attention deficit hyperactivity disorder, predominantly inattentive type -no rx no cannabis use educated no early refills on control limit caffeine therapy monitor 5. OCD improved on Zoloft educated on all medications, benefits, side effects and risk, and educated on depression, anxiety, and ADHD, mood d/o and educated on compliance of medications, metabolic and movement d/o education appointment is, continue therapy discussion with patient about course of treatment and patient instructions. education on serotonin syndrome SSRI/SNRI side effects discussed including but not limited to, gastric upset, nausea, vomiting, diarrhea and/or constipation, weight changes, sexual side effects including loss of libido, increased suicidal thoughts/behavio rs in children and young adults, and serotonin syndrome. . Long-term drug therapy 08/04/2024 Mixed obsessional thoughts and acts (ICD-10 - F42.2) Obsessive-Compul sive Disorder: Care Instructions material was published 1. major depression - Add Seroquel 25 mg at bedtime for 1 week then increase Seroquel 50 mg at bedtime for depression, anxiety, agaition and help sleep discuss and educated on all rx Effexor 75 mg daily in am for depression and anxiety monitor B/P Zoloft 100 mg daily - discuss and educated on all rx - educated on all medications, benefits, side effects and risk, and educated on depression, anxiety, and ADHD, mood d/o and educated on compliance of medications, appointment's, educated on serotonin syndrome, continue therapy discussion with patient about course of treatment and patient instructions. educated on ways to find time for self daily obtain labs PCP continue therapy educated on light box therapy and proper use - patient been using in am mammogram 02/13 and diagnostic 03/17 educated on importance prevention care PAP, mammogram, labs, PE, ect 2. Generalized anxiety disorder - Sertraline 100 mg daily Buspar 15 mg three times a day- anxiety- reported helps continue therapy 3. Primary insomnia - decrease caffeine sleep hygeine Trazodone 25-50 mg for sleep PRN sleep hygiene education given refer to therapy CBT for sleep scheduled for sleep study by PCP PCP - RLS Improved 4. Attention deficit hyperactivity disorder, predominantly inattentive type -no rx no cannabis use educated no early refills on control limit caffeine therapy monitor 5. OCD Zoloft educated on all medications, benefits, side effects and risk, and educated on depression, anxiety, and ADHD, mood d/o and educated on compliance of medications, metabolic and movement d/o education appointment is, continue therapy discussion with patient about course of treatment and patient instructions. education on serotonin syndrome SSRI/SNRI side effects discussed including but not limited to, gastric upset, nausea, vomiting, diarrhea and/or constipation, weight changes, sexual side effects including loss of libido, increased suicidal thoughts/behavio rs in children and young adults, and serotonin syndrome. Second generation antipsychotics (SGAs) have metabolic syndrome issues with weight gain, increase in prolactin, increased waist circumference, increased lipids, and increased glucose. Thus routine monitoring of weight, metabolic labs, etc. is indicated. A general rank ordering of antipsychotics that have the greatest to the least risk of metabolic effects is olanzapine, quetiapine, risperidone, ziprasidone, and aripiprazole. However, weight gain can occur with all of these drugs and considerable variability exists among patients receiving the same drug regarding the risk of metabolic effects. Anti-psychotic agents not only increase the risk of metabolic disorder, they also increase the risk of CVA, akathisia, and movement disorders including EPS or tardive dyskinesia (more common with first generation antipsychotics) and more. . Long-term drug therapy 06/12/2024 Encounter for screening for cardiovascular disorders (ICD-10 - Z13.6) 1. major depression - Effexor 75 mg daily in am for depression and anxiety monitor B/P Zoloft 100 mg daily - discuss and educated on all rx - educated on all medications, benefits, side effects and risk, and educated on depression, anxiety, and ADHD, mood d/o and educated on compliance of medications, appointment's, educated on serotonin syndrome, continue therapy discussion with patient about course of treatment and patient instructions. educated on ways to find time for self daily obtain labs PCP continue therapy educated on light box therapy and proper use - patient been using in am mammogram 02/13 and diagnostic 03/17 educated on importance prevention care PAP, mammogram, labs, PE, ect 2. Generalized anxiety disorder - Sertraline 100 mg daily Buspar 15 mg three times a day- anxiety- reported helps continue therapy 3. Primary insomnia - decrease caffeine sleep hygeine Trazodone 50 mg for sleep sleep hygiene education given refer to therapy CBT for sleep PCP - RLS Improved 4. Attention deficit hyperactivity disorder, predominantly inattentive type -no rx no cannabis use educated no early refills on control limit caffeine therapy monitor 5. OCD improved on Zoloft educated on all medications, benefits, side effects and risk, and educated on depression, anxiety, and ADHD, mood d/o and educated on compliance of medications, metabolic and movement d/o education appointment is, continue therapy discussion with patient about course of treatment and patient instructions. education on serotonin syndrome SSRI/SNRI side effects discussed including but not limited to, gastric upset, nausea, vomiting, diarrhea and/or constipation, weight changes, sexual side effects including loss of libido, increased suicidal thoughts/behavio rs in children and young adults, and serotonin syndrome. . Long-term drug therapy 05/02/2024 Encounter for screening for cardiovascular disorders (ICD-10 - Z13.6) 1. major depression - having increase depression, irritable and anxiety Add Effexor 37.5 mg in am for week then increase to 75 mg daily in am for depression and anxiety monitor B/P Zoloft 100 mg daily - discuss and educated on all rx - educated on all medications, benefits, side effects and risk, and educated on depression, anxiety, and ADHD, mood d/o and educated on compliance of medications, appointment's, educated on serotonin syndrome, continue therapy discussion with patient about course of treatment and patient instructions. educated on ways to find time for self daily obtain labs PCP continue therapy educated on light box therapy and proper use - patient been using in am mammogram 02/13 and diagnostic 03/17 educated on importance prevention care PAP, mammogram, labs, PE, ect 2. Generalized anxiety disorder - Sertraline 100 mg daily Buspar 15 mg three times a day- anxiety- reported helps continue therapy 3. Primary insomnia - decrease caffeine Trazodone 50 mg for sleep sleep hygiene education given refer to therapy CBT for sleep PCP - RLS Improved 4. Attention deficit hyperactivity disorder, predominantly inattentive type -no rx no cannabis use educated no early refills on control limit caffeine therapy monitor 5. OCD improved on Zoloft . Long-term drug therapy 09/23/2023 Other Bupropion Extended [...] caffeine therapy monitor 5. Long-term drug therapy 08/04/2024 Other Preventing Depression From Coming Back: Care Instructions material was published, Depression Treatment: Care Instructions material was published, Seasonal Affective Disorder: Care Instructions material was published, Sertraline material was published, Venlafaxine material was published, Quetiapine material was published, Buspirone material was published, Trazodone material was published 1. major depression - Add Seroquel 25 mg at bedtime for 1 week then increase Seroquel 50 mg at bedtime for depression, anxiety, agaition and help sleep discuss and educated on all rx Effexor 75 mg daily in am for depression and anxiety monitor B/P Zoloft 100 mg daily - discuss and educated on all rx - educated on all medications, benefits, side effects and risk, and educated on depression, anxiety, and ADHD, mood d/o and educated on compliance of medications, appointment's, educated on serotonin syndrome, continue therapy discussion with patient about course of treatment and patient instructions. educated on ways to find time for self daily obtain labs PCP continue therapy educated on light box therapy and proper use - patient been using in am mammogram 02/13 and diagnostic 03/17 educated on importance prevention care PAP, mammogram, labs, PE, ect 2. Generalized anxiety disorder - Sertraline 100 mg daily Buspar 15 mg three times a day- anxiety- reported helps continue therapy 3. Primary insomnia - decrease caffeine sleep hygeine Trazodone 25-50 mg for sleep PRN sleep hygiene education given refer to therapy CBT for sleep scheduled for sleep study by PCP PCP - RLS Improved 4. Attention deficit hyperactivity disorder, predominantly inattentive type -no rx no cannabis use educated no early refills on control limit caffeine therapy monitor 5. OCD Zoloft educated on all medications, benefits, side effects and risk, and educated on depression, anxiety, and ADHD, mood d/o and educated on compliance of medications, metabolic and movement d/o education appointment is, continue therapy discussion with patient about course of treatment and patient instructions. education on serotonin syndrome SSRI/SNRI side effects discussed including but not limited to, gastric upset, nausea, vomiting, diarrhea and/or constipation, weight changes, sexual side effects including loss of libido, increased suicidal thoughts/behavio rs in children and young adults, and serotonin syndrome. Second generation antipsychotics (SGAs) have metabolic syndrome issues with weight gain, increase in prolactin, increased waist circumference, increased lipids, and increased glucose. Thus routine monitoring of weight, metabolic labs, etc. is indicated. A general rank ordering of antipsychotics that have the greatest to the least risk of metabolic effects is olanzapine, quetiapine, risperidone, ziprasidone, and aripiprazole. However, weight gain can occur with all of these drugs and considerable variability exists among patients receiving the same drug regarding the risk of metabolic effects. Anti-psychotic agents not only increase the risk of metabolic disorder, they also increase the risk of CVA, akathisia, and movement disorders including EPS or tardive dyskinesia (more common with first generation antipsychotics) and more. . Long-term drug therapy Plan Of Treatment Next Appt Details Provider Name:Daina Ward , 08/24/2024 02:15:00 PM, [address], [facility] [address], [address], Provider Name:Martha Bernardo, 09/05/2024 11:00:00 AM, [address], [place] [address], [place], [address], Provider Name:Daina Ward , 09/11/2024 09:00:00 AM, [address], [place] [address], [place], [address], Insurance Providers Payer Name Payer Address Payer Phone Subscriber Number Group Number Insured Name Patient Relationship to Insured Coverage Start Date Coverage End Date [facility] [address] [place] [address] [id number] BORKOWSK I, LEEANN Self - patient is the insured Medical (General) History Medical History History ICD Code Problems: Abnormal grief reaction Attention deficit hyperactivity disorder Attention deficit hyperactivity disorder , predominantly inattentive type Generalized anxiety disorder Long-term drug therapy Mild recurrent major depression Moderate recurrent major depression Primary insomnia , Surgical History Surgery Date(Month/Year) Removal of gallbladder (14041) Cholecystectomy (62573339) Ligation of bilateral fallopian tubes (2 [id number]) Removal of gallbladder (83947) 9
--- OUTSIDE RECORDS SUMMARY | 2024-08-07 12:20 | XMS_ITS | Clinical Summary ---
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
--- OUTSIDE RECORDS SUMMARY | 2024-08-07 12:20 | XMS_ITS | Clinical Summary ---
Author Organization [facility] Address [address] [place] [address] Care Team Providers Care Prepress Manager Name Role Phone Maldonado Robles MD Primary Care Provider [phone] Source Comments [facility],non-owned Affiliates and Associated Physician Practices is amultiple site organization consisting of ambulatory clinics and hospital sitesin [place], [place], [place] and [place]. This disclosure is being madepursuant to the Care Everywhere program and may not contain all information available regarding this patient. Last updated 17.[facility] [employer] Active Problems Problem Noted Date Diagnosed Date [...] drink = 0.6 oz pur e alcohol) Comments Unknown Sex and Gender Information Value Date Recorded Sex Assigned at Not on file Legal Sex Female 5:55 PM [employer] Gender Identity Not on file Sexual Orientation [...] SCREENING 1979 LIPID TESTING 1979 MAMMOGRAM 1979 HIV SCREENING 1994 HEPATITIS C SCREENING 02/28/1997 DTAP/TDAP/TD VACCINES (1 - Tdap) 1998 HEPATITIS B VACCINE (1 of 3 - 19+ 3-dose series) 1998 COVID-19 VACCINE (1 - 2023-2 5 season) 2023 DEPRESSION SCREENING 02/23/2024 INFLUENZA VACCINE (Season Ended) 2024 ZOSTER VACCINE (1 of 2) 2029 HIB VACCINE Aged Out No longer eligi ble based on patient's age to complete this topic HPV VACCINE Aged Out No longer eligi ble based on patient's age to complete this topic MENINGOCOCCAL (Group B) VACC INE SHARED DECISION-MAKING Aged Out No longer eligibl e based on patient's age to complete this topic MENINGOCOCCAL GROUPS A/C/Y/W VACCINE Aged Out No longer eligible b ased on patient's age to complete this topic PNEUMOCOCCAL VACCINE Aged Out No long er eligible based on patient's age to complete this topic Care Teams Prepress Manager Relationship Specialty Start Date End Date Maldonado Robles MD [address] [place] [address] PCP - General 11/24/11
--- OUTSIDE RECORDS SUMMARY | 2024-08-07 12:21 | XMS_ITS | Patient Health Record ---
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 Role Phone Maldonado Robles MD Primary Care Provider UnavailPrincess Tee Unavailable [phone] Cruz Abel Unavailable [phone] Allergies Allergen (clinical drug ingredient) Drug/Non Drug Allergy documented on EMR Reaction Allergy Type Onset Date Status dexamethasone dexAMETHasone skin changes Drug Allergy Active Results Component Value Reference Range Notes Spirometry Reviewed date:03/16/2024 01:30:24 PM Interpretation:Abnormal Performing Lab: Notes/Report: Abnormal SpiroPreBronchodilator_FVC 3.7 SpiroPostBronchodilator_FEF 25_75 0 SpiroPreBronchodilator_FEF2 5_75 1.06 SpiroPreBronchodilator_FEV1 2.18 SpiroPrecentPredictionPost_ [id number]_16 0 SpiroPrecentPredictionPost_ FEV1 0 SpiroPrecentPredictionPost_ FEV1_OVER_FVC 0 SpiroPrecentPredictionPost_ FVC 0 SpiroPrecentPredictionPre_F EF25_75 33.2 SpiroPrecentPredictionPre_F EV1 72.4 SpiroPrecentPredictionPre_F EV1_OVER_FVC 72.4 SpiroPrecentPredictionPre_F VC 100.8 SpiroPredicted_FEF25_75 3.19 SpiroPreBronchodilator_FEV1 _OVER_FVC 58.92 SpiroPreBronchodilator_PEF 5.63 SpiroPostBronchodilator_FVC 0 SpiroPostBronchodilator_FEV 1 0 SpiroPostBronchodilator_FEV 1_OVER_FVC 0 SpiroPostBronchodilator_PEF 0 SpiroPredicted_FVC 3.67 SpiroPredicted_FEV1 3.01 SpiroPredicted_FEV1_OVER_FV C 81.38 SpiroPredicted_PEF 6.35 COMPREHENSIVE METABOLIC PANE L Reviewed date:06/01/2024 07:44:01 AM Interpretation:Abnormal Performing Lab:[place], [facility], [address], [place], [address] Marielena Altman MD Notes/Report: NON-FASTING; NON-FASTING; NON-FASTING FASTING:YES FASTING: YES GLUCOSE 147 65-99 mg/dL Fasting reference interval For someone without known diabetes, a glucose value >125 mg/dL indicates that they may have diabetes and this should be confirmed with a follow-up test. UREA NITROGEN (BUN) 13 7-25 mg/dL CREATININE 0.78 0.50-0.99 mg/dL EGFR 95 > OR = 60 mL/min/1.73m2 BUN/CREATININE RATIO SEE NOTE: 6-22 (calc) Not Reported: BUN and Creatinine are within reference range. SODIUM 136 135-146 mmol/L POTASSIUM 4.2 3.5-5.3 mmol/L CHLORIDE 101 98-110 mmol/L CARBON DIOXIDE 25 20-32 mmol/L CALCIUM 9.7 8.6-10.2 mg/dL PROTEIN, TOTAL 7.5 6.1-8.1 g/dL ALBUMIN 4.7 3.6-5.1 g/dL GLOBULIN 2.8 1.9-3.7 g/dL (calc) ALBUMIN/GLOBULIN RATIO 1.7 1.0-2.5 (calc) BILIRUBIN, TOTAL 0.5 0.2-1.2 mg/dL ALKALINE PHOSPHATASE 83 31-125 U/L AST 13 10-35 U/L ALT 8 6-29 U/L VITAMIN D, 25-OH, TOTAL, IA Reviewed date:06/13/2024 08:38:17 AM Interpretation:Abnormal Performing Lab:[id number], [facility] [address], [address], [place], [address] Mohammad Q Margarita Notes/Report: NON-FASTING FASTING:YES FASTING: YES VITAMIN D, 25-OH, TOTAL 27.7 >29.9 ng/mL This test was developed and its analytical performance characteristics have been determined by [facility]. It has not been cleared or approved by the U.S. Food and Drug Administration. This assay has been validated pursuant to the CLIA regulations and is used for clinical purposes. Vitamin D, 25-Hydroxy reports concentrations of two common forms, 25-OHD2 and 25-OHD3. 25-OHD3 indicates both endogenous production and supplementation. 25-OHD2 is an indicator of exogenous sources, such as diet or supplementation. Therapy is based on measurement of Total 25-OHD, with levels <20 ng/mL indicative of Vitamin D deficiency, while levels between 20 ng/mL and 30 ng/mL suggest insufficiency. Optimal levels are >=30 ng/mL. Vitamin D, 25-Hydroxy reports concentrations of two common forms, 25-OHD2 and 25-OHD3. 25-OHD3 indicates both endogenous production and supplementation. 25-OHD2 is an indicator of exogenous sources, such as diet or supplementation. Therapy is based on measurement of Total 25-OHD, with levels <20 ng/mL indicative of Vitamin D deficiency, while levels between 20 ng/mL and 30 ng/mL suggest insufficiency. Optimal levels are > or = 30 ng/mL. VITAMIN D, 25-OH, D3 27.7 This test was developed and its analytical performance characteristics have been determined by [facility]. It has not been cleared or approved by the FDA. This assay has been validated pursuant to the CLIA regulations and is used for clinical purposes. VITAMIN D, 25-OH, D2 <1.0 This test was developed and its analytical performance characteristics have been determined by [facility]. It has not been cleared or approved by the FDA. This assay has been validated pursuant to the CLIA regulations and is used for clinical purposes. IMMUNOGLOBULIN G Reviewed date:06/01/2024 07:43:45 AM Interpretation:Normal Performing Lab:[facility], [facility], [address] [place], [address] Marielena Altman MD Notes/Report: NON-FASTING; NON-FASTING; NON-FASTING FASTING:YES FASTING: YES IMMUNOGLOBULIN G 8940 445-3758 mg/dL CBC (INCLUDES DIFF/PLT) Reviewed date:06/01/2024 07:43:14 AM Interpretation:Abnormal Performing Lab:[place], [facility], [address], [place], [address] Marielena Altman MD Notes/Report: NON-FASTING; NON-FASTING; NON-FASTING FASTING:YES FASTING: YES WHITE BLOOD CELL COUNT 6.4 3.8-10.8 Thousand/ uL RED BLOOD CELL COUNT 4.12 3.80-5.10 Million/uL HEMOGLOBIN 10.9 11.7-15.5 g/dL HEMATOCRIT 35.2 35.0-45.0 % MCV 85.4 80.0-100.0 fL MCH 26.5 27.0-33.0 pg MCHC 31.0 32.0-36.0 g/dL For adults, a slight decrease in the calculated MCHC value (in the range of 30 to 32 g/dL) is most likely not clinically significant; however, it should be interpreted with caution in correlation with other red cell parameters and the patient's clinical condition. RDW 14.5 11.0-15.0 % PLATELET COUNT 386 140-400 Thousand/uL MPV 10.5 7.5-12.5 fL ABSOLUTE NEUTROPHILS 4659 0803-0516 cells/uL ABSOLUTE LYMPHOCYTES 279 174-9245 cells/uL ABSOLUTE MONOCYTES 646 200-950 cells/uL ABSOLUTE EOSINOPHILS 58 15-500 cells/uL ABSOLUTE BASOPHILS 51 0-200 cells/uL NEUTROPHILS 72.8 LYMPHOCYTES 15.4 MONOCYTES 10.1 EOSINOPHILS 0.9 BASOPHILS 0.8 Spirometry Reviewed date:06/01/2024 04:01:33 PM Interpretation:Abnormal Performing Lab: Notes/Report: Abnormal SpiroPreBronchodilator_FVC 3.53 SpiroPostBronchodilator_FEF 25_75 0 SpiroPreBronchodilator_FEF2 5_75 0.94 SpiroPreBronchodilator_FEV1 2 SpiroPrecentPredictionPost_ [id number]_73 0 SpiroPrecentPredictionPost_ FEV1 0 SpiroPrecentPredictionPost_ FEV1_OVER_FVC 0 SpiroPrecentPredictionPost_ FVC 0 SpiroPrecentPredictionPre_F EF25_75 29.5 SpiroPrecentPredictionPre_F EV1 66.4 SpiroPrecentPredictionPre_F EV1_OVER_FVC 69.7 SpiroPrecentPredictionPre_F VC 96.2 SpiroPredicted_FEF25_75 3.19 SpiroPreBronchodilator_FEV1 _OVER_FVC 56.69 SpiroPreBronchodilator_PEF 4.88 SpiroPostBronchodilator_FVC 0 SpiroPostBronchodilator_FEV 1 0 SpiroPostBronchodilator_FEV 1_OVER_FVC 0 SpiroPostBronchodilator_PEF 0 SpiroPredicted_FVC 3.67 SpiroPredicted_FEV1 3.01 SpiroPredicted_FEV1_OVER_FV C 81.38 SpiroPredicted_PEF 6.35 Reason For Referral No Information Medications Medication SIG (Take, Route, Frequency, Duration) Notes Start Date End Date Status predniSONE 20 MG 3 tab(s) orally once a day, call office prior to starting Not-Taking Xolair 375 MG DIRECTED SUBCUTANEOUSLY EVERY 2 WEEKS *Please review and pick correct strength-formula tion from StrongView options. If intended option is not shown, discontinue and re-order from Quick Search* Not-Taking PREDNISONE 20 mg 4 tab(s) orally once a day for 5 day(s) 05/05/2021 Not-Taking PNEUMOVAX 23 - 0.5 mL intramuscularly once for 1 dose(s) Not-Taking Famotidine 40 MG 1 tab(s) orally 1 hour prior to allergy shots for 30 day(s) Not-Taking Phentermine HCl 37.5 MG 1 cap(s) orally once a day 08/07/2021 Not-Taking B-12 1000 MCG 1 tab(s) orally once a day for 30 day(s) Not-Taking Rybelsus 14 MG 1 tab(s) orally once a day for 30 day(s) Not-Taking Jardiance 10 MG 1 tablet Orally Once a day Active Azelastine HCl 137 MCG/SPRAY 2 spray(s) intranasally twice a day as needed for 90 Not-Taking Trelegy Ellipta 200 mcg-62.5 mcg-25 mcg/inh 1 puff(s) inhaled once a day for 30 day(s) Active ASMANEX TWISTHALER 120 DOSE 220 MCG/INH 1 PUFF(S) INHALED ONCE A DAY (IN THE EVENING) for 30 DAY(S) *Please review for potential replacement for e-prescription and drug interaction check* 05/01/2021 Not-Taking Trelegy Ellipta 200 mcg-62.5 mcg-25 mcg/inh INHALE 1 PUFF BY MOUTH ONCE DAILY for 30 Active Triamcinolone Acetonide 0.1 % 1 herbert applied topically 3 times a day as needed for 14 days Active BUPROPION 200 mg/12 hours 1 tab(s) orally 2 times a day for 30 day(s) once a day/not sure of dose Not-Taking LEVOTHYROXINE 125 mcg (0.125 mg) 1 tab(s) orally once a day for 30 day(s) Not-Taking FETZIMA 40 mg 1 cap(s) orally once a day for 30 days Not-Taking B-12 1000 mcg 1 tab(s) orally once a day for 30 day(s) Not-Taking RYBELSUS 14 mg 1 tab(s) orally once a day for 30 day(s) Not-Taking LISINOPRIL 20 mg 1 tab(s) orally once a day Not-Taking XOLAIR 375 mg as directed subcutaneously every 2 weeks Not-Taking AZELASTINE HYDROCHLORIDE NASAL 137 mcg/inh 2 spray(s) intranasally twice a day as needed for 90 Not-Taking FAMOTIDINE 40 mg 1 tab(s) orally 1 hour prior to allergy shots for 30 day(s) Not-Taking PHENTERMINE 37.5 mg 1 cap(s) orally once a day 08/07/2021 Not-Taking TRELEGY ELLIPTA 200 mcg-62.5 mcg-25 mcg/inh 1 puff(s) inhaled once a day for 30 day(s) Active AZELASTINE HYDROCHLORIDE NASAL 137 mcg/inh 2 spray(s) intranasally twice a day as needed for 30 day(s) Not-Taking FAMOTIDINE 40 mg 1 tab(s) orally 1 hour prior to allergy shots for 30 day(s) Not-Taking SIT (TRADITIONAL) variable per schedule SC per schedule Not-Taking SINGULAIR 10 mg 1 tab(s) orally once a day for 90 days Not-Taking CETIRIZINE HYDROCHLORIDE 10 mg 1 tab(s) orally once a day Not-Taking FLONASE 50 mcg/inh 2 spray(s) intranasally once a day Not-Taking VITAMIN D3 Not-Takin carmen XEMBIFY klhw 20% 12 g subcutaneously weekly Active FARXIGA 10 mg 1 tab(s) orally once a day for 30 day(s) Not-Taking Auvi-Q 0.3 MG/0.3ML as directed intramuscularly once Active TRELEGY ELLIPTA 200 mcg-62.5 mcg-25 mcg/inh INHALE 1 PUFF BY MOUTH ONCE DAILY for 30 Not-Taking TRELEGY ELLIPTA 200 mcg-62.5 mcg-25 mcg/inh 1 puff(s) inhaled once a day for 30 day(s) Not-Taking TEZSPIRE PRE-FILLED SYRINGE ekko 210 mg/1.91 mL as directed subcutaneously every 4 weeks Active Cetirizine HCl 10 MG 1 tab(s) orally once a day Active Flonase Allergy Relief 50 MCG/ACT 2 spray(s) intranasally once a day Active Azelastine HCl 137 MCG/SPRAY 2 spray(s) intranasally twice a day as needed Active Famotidine 40 MG 1 tab(s) orally 1 hour prior to allergy shots Active ALBUTEROL-IPRATROPI UM 2.5 mg-0.5 mg/3 mL 3 mL by nebulizer 4 times a day Active AEROCHAMBER MDI SPACER - MOUTHPIECE (ADULT) N/A As directed PO Per asthma action plan Active THEOPHYLLINE 600 mg/24 hours 1 tab(s) orally once a day Active PROAIR HFA 90 mcg/inh 2 puff(s) inhaled Q4-6 hours, PRN and per the asthma action plan for 90 days Active Theophylline 600 MG/24 HOURS 1 TAB(S) ORALLY ONCE A DAY *Please review and pick correct strength-formula tion from StrongView options. If intended option is not shown, discontinue and re-order from Quick Search* Active BUSPAR 10mg twice a day *Please review for potential replacement for e-prescription and drug interaction check* Active Fetzima 40 MG 1 cap(s) orally once a day for 30 days Not-Taking Vitamin D3 *Please review and pick correct strength-formula tion from StrongView options. If intended option is not shown, discontinue and re-order from Quick Search* Not-Taking Farxiga 10 MG 1 tab(s) orally once a day for 30 day(s) Not-Taking Lisinopril 20 MG 1 tab(s) orally once a day Active predniSONE 20 MG 4 tab(s) orally once a day for 5 day(s) 05/05/2021 Not-Taking Xembify KLHW 20% 12 G SUBCUTANEOUSLY WEEKLY *Please review and pick correct strength-formula tion from StrongView options. If intended option is not shown, discontinue and re-order from Quick Search* Active Pneumovax 23 - 0.5 ML INTRAMUSCULARLY ONCE for 1 DOSE(S) *Please review and pick correct strength-formula tion from StrongView options. If intended option is not shown, discontinue and re-order from Quick Search* Not-Taking buPROPion HCl ER (SR) 200 MG 1 tab(s) orally 2 times a day for 30 day(s) once a day/not sure of dose Active Levothyroxine Sodium 125 MCG 1 tab(s) orally once a day for 30 day(s) Active AUVI -Q 0.3 mg as directed intramuscularly once for 30 day(s) Active PREDNISONE 20 mg 3 tab(s) orally once a day, call office prior to starting Active Singulair 10 MG 1 tab(s) orally once a day for 90 days Active TRIAMCINOLONE ACETONIDE TOPICAL 0.1% 1 herbert applied topically 3 times a day as needed for 14 days Active SINGULAIR 10 mg 1 tab(s) orally once a day for 90 days Active Immunizations Vaccine Route Administration Date Status [...] stop date) Former Smoker NA - NA Sex Assigned At : Social History Observation Description Sex Assigned At Female Tobacco Control (Standard) Question Answer Notes Tobacco use: Former smoker How long has it been since you last smoked? Grea ter than 10 years AUDIT-C (Standard) Question Answer Notes Did you have a drink containing alcohol in the p ast year? 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) Active confirmed Problem Hypothyroidism (24696705) Hypothyroidism, unspecified (E03.9) Active confirmed Problem Type II diabetes mellitus without complication (229864983) Type 2 diabetes mellitus without complications (E11.9) Active confirmed Problem Generalized anxiety disorder (33883019) Generalized anxiety disorder (F41.1) Active confirmed Problem Chronic allergic conjunctivitis (58198867) Other chronic allergic conjunctivitis (H10.45) Active confirmed Problem Allergic rhinitis caused by pollen (disorder) (11107020) Allergic rhinitis due to pollen (J30.1) Active confirmed Problem Allergic rhinitis (51390363) Other allergic rhinitis (J30.89) Active confirmed Problem Uncomplicated severe persistent asthma (798430406) Severe persistent asthma, uncomplicated (J45.50) Active confirmed Problem Allergic rhinitis caused by pollen (disorder) (70808145) Allergic rhinitis due to pollen (J30.1) Active confirmed Problem Allergic rhinitis caused by animal hair and dander (339624984792897) Allergic rhinitis due to animal (cat) (dog) hair and dander (J30.81) Active confirmed Problem Allergic rhinitis (30282506) Other allergic rhinitis (J30.89) Active confirmed Problem Uncomplicated severe persistent asthma (116787816) Severe persistent asthma, uncomplicated (J45.50) Active confirmed Problem Dysphagia (98453635) Dysphagia, unspecified (R13.10) Active confirmed Problem Chronic sinusitis (11589025) Chronic sinusitis, unspecified (J32.9) Active confirmed Problem Chronic obstructive pulmonary disease (39036724) Chronic obstructive pulmonary disease, unspecified (J44.9) Active confirmed Problem History of pneumonia (633962470) Personal history of pneumonia (recurrent) (Z87.01) Active confirmed Vital Signs Respiratory Rate 17 /min 06/01/2024 Oximetry 99 % 07/13/2024 Blood pressure diastolic 71 mm Hg 07/13/2024 Height 66 in 07/13/2024 Blood pressure systolic 114 mm Hg 07/13/2024 Weight 152.8 lbs 06/01/2024 BMI 24.66 kg/m2 06/01/2024 Encounters Encounter Location Date Provider Diagnosis [address] [address] 09/02/2023 Cruz Abel Severe persistent as thma, uncomplicated J45.[address] [address] 09/08/2023 Cruz Abel Allergic rhinitis du e to pollen J30.1 ; Other allergic rhinitis J30.89 ; Allergic rhinitis due to animal (cat) (dog) hair and dander J30.81 and Other chronic allergic conjunctivitis H10.[address] [address] 10/06/2023 Cruz Abel Allergic rhinitis du e to pollen J30.1 ; Other allergic rhinitis J30.89 ; Allergic rhinitis due to animal (cat) (dog) hair and dander J30.81 and Other chronic allergic conjunctivitis H10.[address] [address] 10/28/2023 Princess Crawford Severe persistent as thma, [...] deficiency, unspecified E55.9 and Dysphagia, unspecified R13.10 [facility] [address] [place] [address] [facility] [address] [address] 11/09/2023 Cruz Colten Allergic rhinitis du e to pollen J30.1 ; Other allergic rhinitis J30.89 ; Allergic rhinitis due to animal (cat) (dog) hair and dander J30.81 and Other chronic allergic conjunctivitis H10.45 [facility] [address] [place] [address] [facility] [address] [address] 11/25/2023 Cruz Abel Severe persistent as thma, uncomplicated J45.[address] [address] 12/07/2023 Cruz Abel Allergic rhinitis du e to pollen J30.1 ; Other allergic rhinitis J30.89 ; Allergic rhinitis due to animal (cat) (dog) hair and dander J30.81 and Other chronic allergic conjunctivitis H10.45 [facility] [address] [place] [address] [facility] [address] [address] 12/23/2023 Cruz Abel Severe persistent as thma, uncomplicated J45.50 [facility] [address] [place] [address] 01/04/2024 Cruz Abel Allergic rhinitis du e to pollen J30.1 ; Other allergic rhinitis J30.89 ; Allergic rhinitis due to animal (cat) (dog) hair and dander J30.81 and Other chronic allergic conjunctivitis H10.45 [facility] [address] [place] [address] 01/24/2024 Cruz Abel Severe persistent as thma, uncomplicated J45.[address] [facility] [address] [address] 02/01/2024 Cruz Abel Allergic rhinitis du e to pollen J30.1 ; Other allergic rhinitis J30.89 ; Allergic rhinitis due to animal (cat) (dog) hair and dander J30.81 and Other chronic allergic conjunctivitis H10.45 [facility] [address] [place] [address] [facility] [address] [place] [phone] 02/21/2024 Cruz Abel Severe persistent as thma, uncomplicated J45.50 [facility] [address] [place] [phone] 03/16/2024 Princess Crawford Severe persistent as thma, [...] deficiency, unspecified E55.9 and Dysphagia, unspecified R13.[address] [address] 03/23/2024 Cruz Abel Severe persistent as thma, uncomplicated J45.[address] [address] 04/13/2024 Cruz Abel Allergic rhinitis du e to pollen J30.1 ; Other allergic rhinitis J30.89 ; Allergic rhinitis due to animal (cat) (dog) hair and dander J30.81 and Other chronic allergic conjunctivitis H10.[address] [address] 04/20/2024 Cruz Abel Severe persistent as thma, uncomplicated J45.50 [facility] [address] [place] [address] [facility] [address] [address] 04/27/2024 Cruz Abel Allergic rhinitis du e to pollen J30.1 ; Other allergic rhinitis J30.89 ; Allergic rhinitis due to animal (cat) (dog) hair and dander J30.81 and Other chronic allergic conjunctivitis H10.[address] [address] 05/18/2024 Cruz Colten Allergic rhinitis du e to pollen J30.1 ; Other allergic rhinitis J30.89 ; Allergic rhinitis due to animal (cat) (dog) hair and dander J30.81 and Other chronic allergic conjunctivitis H10.45 [facility] [address] [place] [address] [facility] [address] [address] 05/24/2024 Cruz Abel Allergic rhinitis du e to pollen J30.1 ; Other allergic rhinitis J30.89 ; Allergic rhinitis due to animal (cat) (dog) hair and dander J30.81 and Other chronic allergic conjunctivitis H10.[address] [address] 05/31/2024 Cruz Abel Allergic rhinitis du e to pollen J30.1 ; Other allergic rhinitis J30.89 ; Allergic rhinitis due to animal (cat) (dog) hair and dander J30.81 and Other chronic allergic conjunctivitis H10.[address] [facility] [address] [address] 06/01/2024 Princess Young Severe persistent as thma, uncomplicated J45.50 ; 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 D80.6 ; Allergic rhinitis due to pollen J30.1 ; Other allergic rhinitis J30.89 ; Allergic rhinitis due to animal (cat) (dog) hair and dander J30.81 ; Other chronic allergic conjunctivitis H10.45 ; Chronic sinusitis, unspecified J32.9 ; Personal history of pneumonia (recurrent) Z87.01 ; Localized skin eruption due to drugs and medicaments taken internally L27.1 ; Encounter for therapeutic drug level monitoring Z51.81 ; Vitamin D deficiency, unspecified E55.9 and Dysphagia, unspecified R13.10 [facility] [address] [place] [address] [facility] [address] [address] 06/15/2024 Cruz Abel Severe persistent as thma, uncomplicated J45.[address] [facility] [address] [address] 06/28/2024 Cruz Abel Allergic rhinitis du e to pollen J30.1 ; Other allergic rhinitis J30.89 ; Allergic rhinitis due to animal (cat) (dog) hair and dander J30.81 and Other chronic allergic conjunctivitis H10.[address] [facility] [address] [address] 07/13/2024 Cruz Abel Severe persistent as thma, uncomplicated J45.50 [facility] [address] [place] [address] 07/26/2024 Cruz Abel Allergic rhinitis du e to pollen J30.1 ; Other allergic rhinitis J30.89 ; Allergic rhinitis due to animal (cat) (dog) hair and dander J30.81 and Other chronic allergic conjunctivitis H10.[address] [address] 03/16/2024 Princess Crawford [facility] [address] [facility] [place] [address] 03/16/2024 Princess Crawford [facility] [place] [address] [facility] [place] [address] 01/27/2024 Princess Crawford [facility] [place] [address] [facility] [place] [address] 03/06/2024 Princess Crawford [facility] [address] [facility] [place] [address] 03/09/2024 Princess Crawford [facility] [place] [address] [facility] [place] [address] 03/27/2024 Princess Crawford Assessments Encounter Date Diagnosis (ICD Code) Assessment Notes Treatment Notes Treatment Clinical Notes Section Notes 09/02/2023 Severe persistent as thma, uncomplicated (ICD-10 [...] NOT standard of care. Since resuming in [facility] she has not been sick. Continue Xembify [...] NOT standard of care. Since resuming in [facility] she has not been sick. Continue Xembify [...] persistent as thma, uncomplicated (ICD-10 - J45.50) 04/13/2024 Allergic rhinitis du e to pollen (ICD-10 - J30.1) 04/20/2024 Severe persistent as thma, uncomplicated (ICD-10 - J45.50) 04/27/2024 Allergic rhinitis du e to pollen (ICD-10 - J30.1) 05/18/2024 Allergic rhinitis du e to pollen (ICD-10 - J30.1) 05/24/2024 Allergic rhinitis du e to pollen (ICD-10 - J30.1) 05/31/2024 Allergic rhinitis du e to pollen (ICD-10 - J30.1) 06/01/2024 Antibody deficiency with near-normal immunoglobulins or with [...] NOT standard of care. Since resuming in March she has not been sick. Continue Xembify weekly. - IgG trough level check recently -1292. Still with mild anemia -Return in 3-4months 06/01/2024 Severe persistent as thma, uncomplicated (ICD-10 - J45.50) Manuela returns today doing well on TEZSPIRE the last few months. Previously on Xolair still resulting in steroids a few times a year. Doing well the last year! - No longer seeing. [facility].- spirometry today still with airway obstruction. comparable to last check. Recommend Dr. 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, [...] for dosing today, return for scheduled dosing 06/15/2024 Severe persistent as thma, uncomplicated (ICD-10 - J45.50) 06/28/2024 Allergic rhinitis du e to pollen (ICD-10 - J30.1) 07/13/2024 Severe persistent as thma, uncomplicated (ICD-10 - J45.50) 07/26/2024 Allergic rhinitis du e to pollen (ICD-10 - J30.1) 07/26/2024 Other allergic rhini tis (ICD-10 - J30.89) 04/13/2024 Other allergic rhini tis (ICD-10 - J30.89) 06/28/2024 Other allergic rhini tis (ICD-10 - J30.89) 06/01/2024 Allergic rhinitis du e to pollen (ICD-10 - J30.1) Manuela clearly suffers from atopic disease based upon our prior skin testing. -Not due for dosing today - Doing very well thus far on [...] on hand at all times for Xolair Follow allergen avoidance, meds and continue SCIT as an adjunctive treatment to current regimen 05/31/2024 Other allergic rhini tis (ICD-10 - J30.89) 05/24/2024 Other allergic rhini tis (ICD-10 - J30.89) 05/18/2024 Other allergic rhini tis (ICD-10 - J30.89) 04/27/2024 Other allergic rhini tis (ICD-10 - J30.89) 03/16/2024 Allergic rhinitis du e to pollen [...] allergic rhini tis (ICD-10 - J30.89) 09/08/2023 Allergic rhinitis du e to animal [...] as an adjunctive treatment to current regimen 04/13/2024 Allergic rhinitis du e to animal (cat) (dog) hair and dander (ICD-10 - J30.81) 04/27/2024 Allergic rhinitis du e to animal (cat) (dog) hair and dander (ICD-10 - J30.81) 05/18/2024 Allergic rhinitis du e to animal (cat) (dog) hair and dander (ICD-10 - J30.81) 05/24/2024 Allergic rhinitis du e to animal (cat) (dog) hair and dander (ICD-10 - J30.81) 05/31/2024 Allergic rhinitis du e to animal (cat) (dog) hair and dander (ICD-10 - J30.81) 06/01/2024 Other allergic rhini tis (ICD-10 - J30.89) Follow allergen avoidance, meds and SCIT as an adjunctive treatment to current regimen 06/28/2024 Allergic rhinitis du e to animal (cat) (dog) hair and dander (ICD-10 - J30.81) 07/26/2024 Allergic rhinitis du e to animal (cat) (dog) hair and dander (ICD-10 - J30.81) 07/26/2024 Other chronic allerg ic conjunctivitis (ICD-10 - H10.45) 06/28/2024 Other chronic allerg ic conjunctivitis (ICD-10 - H10.45) 06/01/2024 Allergic rhinitis du e to animal (cat) (dog) hair and dander (ICD-10 - J30.81) Follow allergen avoidance, meds and SCIT as an adjunctive treatment to current regimen 05/31/2024 Other chronic allerg ic conjunctivitis (ICD-10 - H10.45) 05/24/2024 Other chronic allerg ic conjunctivitis (ICD-10 - H10.45) 05/18/2024 Other chronic allerg ic conjunctivitis (ICD-10 - H10.45) 04/27/2024 Other chronic allerg ic conjunctivitis (ICD-10 - H10.45) 04/13/2024 Other chronic allerg ic conjunctivitis (ICD-10 - H10.45) 03/16/2024 Other allergic rhini tis (ICD-10 - [...] ic conjunctivitis (ICD-10 - H10.45) 10/28/2023 Other chronic allerg ic conjunctivitis (ICD-10 [...] and continue SCIT as an adjunctive measure 06/01/2024 Other chronic allerg ic conjunctivitis (ICD-10 - H10.45) Given ocular signs and symptoms I encouraged allergy avoidance measures and meds as above. If symptoms persist, consider adding additional medications including intraocular antihistamine/mas t cell stabilizer, PRN and continue SCIT as an adjunctive measure 06/01/2024 Chronic sinusitis, unspecified (ICD-10 - J32.9) History of recurrent sinopulmonary infections, requiring antibiotics every 3-4 months wiht prior hospitalization - No recent infections on immune replacement -Discussed a trial of Xylitol/XLEAR 03/16/2024 Chronic sinusitis, unspecified (ICD-10 - J32.9) [...] replacement -Discussed a trial of Xylitol/XLEAR 10/28/2023 Personal history of pneumonia (recurrent) (ICD-10 - Z87.01) As above 03/16/2024 Personal history of pneumonia (recurrent) (ICD-10 - Z87.01) As above 06/01/2024 Personal history of pneumonia (recurrent) (ICD-10 - Z87.01) As above 06/01/2024 Localized skin erupt ion due to drugs and medicaments taken internally (ICD-10 - L27.1) Treat large local SCIT reactions as above. Also use ice packs 03/16/2024 Localized skin erupt ion due to drugs and medicaments taken internally (ICD-10 - L27.1) Treat large local SCIT reactions as above. Also use ice packs 10/28/2023 Localized skin erupt ion due to drugs and medicaments taken internally (ICD-10 - L27.1) Treat large local SCIT reactions as above. Also use ice packs 10/28/2023 Encounter for therap eutic drug level monitoring (ICD-10 - Z51.81) Pulmonary following Theophylline levels now 03/16/2024 Encounter for therap eutic drug level monitoring (ICD-10 - Z51.81) Pulmonary following Theophylline levels now 06/01/2024 Encounter for therap eutic drug level monitoring (ICD-10 - Z51.81) Pulmonary following Theophylline levels now 06/01/2024 Vitamin D deficiency , unspecified (ICD-10 - E55.9) Recent Vitamin D level normal now and discuss DEXA order with PCP 03/16/2024 Vitamin D deficiency , unspecified (ICD-10 - E55.9) Check Vitamin D now and discuss DEXA order with PCP 10/28/2023 Vitamin D deficiency , unspecified (ICD-10 - E55.9) Check Vitamin D (with Pneumo titers), and discuss DEXA order with PCP 10/28/2023 Dysphagia, unspecifi ed (ICD-10 - R13.10) [...] Recommend GI evaluation in the next year 06/01/2024 Dysphagia, unspecifi ed (ICD-10 - R13.10) No recent symptoms, continue to monitor 10/21/2023 Other 09/02/2023 Other 10/28/2023 Other 11/25/2023 Other 12/23/2023 Other 01/24/2024 Other 02/21/2024 Other 03/16/2024 Other 03/23/2024 Other 04/20/2024 Other 06/01/2024 Other 06/15/2024 Other 07/13/2024 Other Plan Of Treatment Pending Test Test Name Order Date STREPTOCOCCUS PNEUMONIAE IGG AB (23 SERO TYPES) 03/21/2020 STREPTOCOCCUS PNEUMONIAE IGG AB (23 SERO TYPES) 08/07/2020 ASPERGILLUS ANTIBODIES,IMMUNODIFFUSION 0 03/21/2020 ASPERGILLUS FUMIGATUS (M3) IGE IMMUNOGLOBULIN G 07/29/2023 CBC (INCLUDES DIFF/PLT) 07/29/2023 CBC (INCLUDES DIFF/PLT) 03/21/2020 IMMUNOGLOBULINS G/A/M 09/11/2021 THEOPHYLLINE 03/21/2020 THEOPHYLLINE 02/01/2020 VITAMIN D, 25-OH, TOTAL, [place] 07/29/2023 VITAMIN D, 25-OH, TOTAL, [place] 07/25/2020 ASPERGILLUS FUMIGATUS (M3) IGG 1 Next Appt Details Provider Name:Cruz Abel , 08/10/2024 08:00:00 AM, [address], [address], Provider Name:Cruz Abel , 08/23/2024 08:00:00 AM, [address], [address], [address], Provider Name:Princess Crawford , 09/21/2024 09:30:00 AM, [address], [address], Insurance Providers Payer Name Payer Address Payer Phone Subscriber Number Group Number Insured Name Patient Relationship to Insured Coverage Start Date Coverage End Date [facility] [address] [address] [place] [address] [id number] Manuela Adams i Self - patient is the insured 5 [employer] [address] [place] [address] [phone] [id number] Manuela Adams i Self - patient is the insured Medical (General) History Medical History History ICD Code Hypothyroidism, unspecified E03.9 Type 2 diabetes mellitus without complic ations E11.9 Chronic obstructive pulmonary disease, u nspecified J44.9 anxiety/depression Surgical History Surgery Date(Month/Year) Lung Biopsy 2012 Gallbladder Removed 1998 Tubal 2011 Abrasion 2017 Hospitalization History Reason Date(Month/Year) >30 hospitalizations due to asthma
[2024-08-07] MEDS: SIMETHICONE ORAL SUSPENSION 20 MG/0.3 ML 30 ML BOTTLE BY MOUTH (13:21)
--- NOTE | 2024-08-07 13:29 | P.HP_ITS ---
H&P: HPI History of Present Illness Date/Time: 08/07/24 13:29 Chief Complaint: Epigastric pain-weight loss Narrative: the patient has been experiencing intermittent episodes of epigastric pain, sharp, moderate, with periods of even months without episodes. She endorses a 30 lb weight loss. Occasional nausea and vomiting. Of note, she is a diabetic and has been trying different GLP 1 medications. She is referred for EGD. Review of Systems Review of Systems: All systems reviewed & are unremarkable except as noted in HPI and below PMFSH Past Medical History Medical History Frequent loose stools Dysphagia Heartburn HTN (hypertension) Obesity Elevated blood pressure reading Type 2 diabetes mellitus without complications Anxiety Obesity (BMI 30.0-34.9) Weight gain Asthma Depression Controlled diabetes mellitus type II without complication Family History Family History Father Asthma Family history of emphysema, Onset Age: 69 Mother Asthma Family history of arthritis Grandparent Carcinoma of colon, Onset Age: 88 Other Diabetes mellitus Family history of cardiovascular disease Family history of malignant neoplasm Family history of malignant neoplasm of urinary bladder Social History Social History Social History: Smoking packs per day: 1 Smoking cigarettes per day: 20.0 Years smoked: 16 Smoking pack-years: 16.00 Smoking status: Former smoker Tobacco type: cigarettes Second hand tobacco smoke exposure: No Smoking end date: 02/22/10 Alcohol intake: never Substance use: never Substance use type: does not use Do You Feel Safe in your Home?: Yes Lack of Transportation: No Lack of Food: Never True Current Housing: I Have Housing Concerned About Future Housing: No Difficulty Paying Gas/Electric Bills: No Difficulty Paying for Meds: No Currently Unemployed: No Education: Don't Know Difficulty w/ Childcare or Family Care: No Living arrangements: with family Occupation/Education: occupation Gender identity (if verbalized by the patient): Female Sexual Orientation (if Verbalized by the Patient): Straight or Heterosexual Spiritual care concerns: No Meds Home Medications and Allergies Home Medications ?Medication ?Instructions ?Recorded ?Confirmed ?Type azelastine 137 mcg-fluticasone 50 2 spray intranasal BID 08/24/19 08/07/24 History mcg/spray nasal spray famotidine 40 mg tablet 40 mg PO .COMPLEX 08/24/19 08/01/24 History lancets (OneTouch UltraSoft #100 ea 09/29/19 08/01/24 Rx Lancets) blood sugar diagnostic (OneTouch #100 ea 07/15/20 08/01/24 Rx Ultra Blue Test Strip) montelukast 10 mg tablet 10 mg PO DAILY #30 tabs 10/02/20 08/07/24 Rx (Singulair) immune globulin,gamma(IgG)klhw 1 5,748 mg (28.74 mL) subcut WEEKLY 11/11/22 08/07/24 Rx gram/5 mL (20%) subcut solution #5 mL (Xembify) omeprazole 20 mg capsule,delayed 20 mg PO DAILY 1 month #30 caps 11/23/23 08/01/24 Rx release theophylline 600 mg 600 mg PO DAILY #90 tabs 02/02/24 08/07/24 Rx tablet,extended release 24 hr levothyroxine 88 mcg tablet See Rx Instructions .Route 02/14/24 08/07/24 Rx .COMPLEX #90 tabs blood-glucose sensor (FreeStyle #2 ea 04/13/24 08/01/24 Rx [place] 3 Sensor device) blood-glucose,shipper/receiver,cont #1 ea 04/13/24 08/01/24 Rx (FreeStyle [place] 3 [place]) empagliflozin 25 mg tablet 25 mg PO DAILY #90 tabs 04/13/24 08/07/24 Rx (Jardiance) fluticasone fur. 200 mcg-umeclid 1 inh inhalation DAILY #60 ea 05/26/24 08/07/24 Rx 62.5 mcg-vilant 25 mcg inhalat.powder (Trelegy Ellipta) metformin 500 mg tablet,extended See Rx Instructions .Route 05/30/24 08/07/24 Rx release 24 hr .COMPLEX #180 tabs Airsupra 90 mcg-80 mcg/actuation 2 inh inhalation ONCE 30 days 07/20/24 08/07/24 Rx HFA aerosol inhaler #10.7 grams (albuterol-budesonide) Lactobacillus acidophilus 10 10,000 mmu cells PO DAILY 07/20/24 08/07/24 History billion cell capsule (Probacap) buspirone 15 mg tablet 15 mg PO BID 07/20/24 08/07/24 History cetirizine 10 mg capsule (All Day 10 mg PO DAILY 07/20/24 08/07/24 History Allergy (cetirizine)) cholecalciferol (vitamin D3) 125 125 mcg PO DAILY 07/20/24 08/07/24 History mcg (5,000 unit) capsule sertraline 100 mg tablet 100 mg PO DAILY 07/20/24 08/07/24 History trazodone 50 mg tablet 50 mg PO QHS PRN insomnia 07/20/24 08/07/24 History venlafaxine 75 mg capsule,extended 75 mg PO DAILY 07/20/24 08/07/24 History release 24 hr Allergies Allergy/AdvReac Type Severity Reaction Status Date / Time citalopram AdvReac Mild Abdominal Verified 08/07/24 11:21 Pain dexamethasone AdvReac Unknown weight gain Verified 08/07/24 11:21 Vital Signs Vital Signs - 24 hr 08/07/24 11:36 Temperature 99.6 F Pulse Rate 71 Respiratory Rate 16 Blood Pressure 111/79 Pulse Oximetry 99 Oxygen Delivery Room Air Exam Const: General: cooperative and healthy appearing Resp: Effort & Inspection: normal respiratory effort and able to speak in complete sentences Auscultation: clear to auscultation bilaterally Cardio: Rate: regular rate Rhythm: regular rhythm GI: Inspection: normal to inspection GI Palp: No No hepatosplenomegaly present Auscultation: normal bowel sounds Rectal Exam: deferred Skin: General skin exam: normal color Psych: Appearance: grossly normal Mental Status: mental status grossly normal Assessment and Plan Assessment and plan (1) Epigastric pain: Code(s): R10.13 - Epigastric pain Status: Acute Assessment and Plan: The patient is deemed a good candidate for the procedure. Consent signed. Will proceed.
[2024-08-07 13:43] VITALS: BP 97/61; PULSE 62; RESP 16; O2SAT 100
--- NOTE | 2024-08-07 13:46 | WPDANESPN ---
Anes - Prog Note Post-Op Date/Time: 08/07/24 13:46 Vital Signs: Last Vital Signs Temp 99.6 F 08/07/24 11:36 Pulse 71 08/07/24 11:36 Resp 16 08/07/24 11:36 BP 111/79 08/07/24 11:36 Pulse Ox 99 08/07/24 11:36 O2 Del Method Room Air 08/07/24 11:36 Pain Score (VAS): no I/O: Intake & Output 08/06/24 08/07/24 08/07/24 23:59 07:59 15:59 Intake Total 50 Balance 50 08/07/24 11:45 POC Capillary Glucose 98 Patient Feedback: Patient satisfied with anesthetic care.
[2024-08-07 13:53] VITALS: BP 97/62; PULSE 68; RESP 16; O2SAT 98
[2024-08-07 14:03] VITALS: BP 114/63; PULSE 64; RESP 16; O2SAT 99
== END 2024-08-07 14:10 | disposition home or self-care (01) ==
PROVIDERS: PCP Family Medicine; Visit Provider Internal Medicine Gastroenterology
PROC: 0DJ08ZZ Inspection of Upper Intestinal Tract, Via Natural or Artificial Opening Endoscopic (ICD-10-PCS; CPT 43239; principal; 2024-08-07 12:30)
DX: K29.30 Chronic superficial gastritis without bleeding (principal)
CPT/HCPCS: 43239

== ENCOUNTER 2024-12-06 11:13 | Outpatient (CLI) | payer OTHER, SELFPAY ==
--- NOTE | ~2024-12-06 | MM_ITS ---
EXAMINATION: MM screening [facility] BI w maggie HISTORY: Screening TECHNIQUE: Craniocaudal and mediolateral oblique 3-D tomosynthesis images were obtained and synthetic 2-D images were generated. CAD analysis was submitted and interpreted. COMPARISON: 02/11/2023 BREAST PARENCHYMAL COMPOSITION: There are scattered areas of fibroglandular density. FINDINGS: There is no evidence of suspicious mass, calcification, or architectural distortion to suggest malignancy. Asymmetry in the medial right breast, posterior depth, seen in the right CC projection. IMPRESSION: 1. Asymmetry in the medial right breast, posterior depth, seen in the right CC projection. The study is incomplete. A diagnostic mammogram and a diagnostic ultrasound are recommended. 2. No evidence of malignancy in the left breast. BI-RADS 0: Incomplete-Need additional imaging evaluation. Reviewed, dictated and finalized at location Q. IMPRESSION: 1. Asymmetry in the medial right breast, posterior depth, seen in the right CC projection. The study is incomplete. A diagnostic mammogram and a diagnostic ul trasound are recommended. 2. No evidence of malignancy in the left breast. BI-RADS 0: Incomplete-Need additional imaging evaluation.
== END 2024-12-06 11:14 | disposition home or self-care (01) ==
LOC: MICIMG 11:14
PROVIDERS: PCP Family Medicine; Visit Provider Family Medicine
DX: Z12.31 Encounter for screening mammogram for malignant neoplasm of breast (principal); R92.8 Other abnormal and inconclusive findings on diagnostic imaging of breast
CPT/HCPCS: 77063; 77067

== ENCOUNTER 2025-02-01 08:18 | Outpatient (CLI) | payer OTHER, SELFPAY ==
--- NOTE | ~2025-02-01 | MM_ITS ---
EXAMINATION: MM diagnostic [facility]fi RT w maggie HISTORY: Additional imaging TECHNIQUE: Craniocaudal and mediolateral oblique 3-D tomosynthesis images were obtained and synthetic 2-D images were generated. CAD analysis was submitted and interpreted. COMPARISON: December 06. Multiple older studies dating back to 2022. BREAST PARENCHYMAL COMPOSITION: Not Dense: There are scattered areas of fibroglandular FINDINGS: Small circumscribed structure, which is very low in density, is seen to be unchanged from the tomographic images of 2022. This is considered benign. No suspicious masses are seen. There are no suspicious calcifications. No unexplained architectural distortion is seen. There are no skin or nipple abnormalities identified. There is no adenopathy seen on the images submitted. IMPRESSION: No mammographic evidence to suggest malignancy is seen. The patient may return to screening mammography as per ACR guidelines. BI-RADS 2 - Benign. Reviewed, dictated and finalized at location C. 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
== END 2025-02-01 08:19 | disposition home or self-care (01) ==
LOC: MICIMG 08:19
PROVIDERS: PCP Family Medicine; Visit Provider Physician Assistant
DX: R92.8 Other abnormal and inconclusive findings on diagnostic imaging of breast (principal)
CPT/HCPCS: 77061; 77065; G0279